=== PATIENT | female | born 1940 | race Caucasian/White ===

== ENCOUNTER 2019-02-09 10:41 | Inpatient (IN) | payer MEDICARE, OTHER ==
[~2019-02-09] VITALS: Ht 154.9 cm; Wt 79.6 kg
[~2019-02-09 10:41] MED LIST: ASPI-650 PO; CALC500T12 PO; DOCU-159 PO; LOSA25TA2 PO; NITR0.4T39 PO
[2019-02-09] MEDS ORDERED: NITROGLYCERIN 2% 1 GM OINT PKT TD STA (11:25)
[2019-02-09] MEDS ORDERED: NICARDipine HCL 30 MG CAPSULE PO ONE (11:30)
[2019-02-09] MEDS: ONDANSETRON 4 MG INJ IV STA ×2 (11:39→11:43)
[2019-02-09] MEDS: morphine 4 MG/ML VIAL IV STA ×2 (11:39→11:43)
[2019-02-09] MEDS ORDERED: ASPI-1044 ORAL (12:29)
[2019-02-09] MEDS ORDERED: METO-319 ORAL (12:29)
[2019-02-09] MEDS ORDERED: ATOR20TA38 PO (12:29)
--- NOTE | 2019-02-09 15:09 | ERD ---
ER Documentation Chief Complaint Chief Complaint chest pain x 3 days, headache, and back pain, " i feel like crying", no si HPI This 78-year-old female who is complaining of multiple complaints. She is complaining of a occipital headache for the past day consistent with prior hypertensive headaches. She also complains that she is having blurry vision in her left eye. She said she lost the vision in her right eye about 3 months ago. She went to her doctor and they did not do any work-up and told her is just the way is going to be. She is concerned that she is going to lose the vision in her left eye now. She says is a bit blurry like when she gets high blood pressure but there is no loss of vision. She also is complaining of headache with substernal chest pressure. She is found to have very elevated blood pressure out in triage. ROS All systems reviewed and are negative except as per history of present illness. Medications Home Meds Reported Medications Metoprolol Succinate* (Toprol XL*) 50 Mg Tab.er.24h, 1 TAB ORAL DAILY 02/09/19 Atorvastatin Calcium* (Atorvastatin Calcium*) 20 Mg Tablet, 20 MG PO QHS, #30 TAB 02/09/19 Aspirin Delayed Release (Aspirin Delayed Release) 81 Mg Tablet.dr, 1 TAB ORAL DAILY 02/09/19 Discontinued Reported Medications Docusate Sodium* (Docusate Sodium*) 100 Mg Capsule, 100 MG PO DAILY 01/12/12 Losartan Potassium* (Cozaar*) 25 Mg Tablet, 25 MG PO DAILY 01/12/12 Nitroglycerin* (Nitrostat*) 0.4 Mg Tab.subl, 0.4 MG PO PRN 01/12/12 Calcium Carbonate* (Oysco-500*) 1 Tab Tablet, 1 TAB PO BID 01/12/12 Aspirin (Aspirin) 81 Mg Tablet, 1 TAB PO DAILY 01/12/12 Allergies Allergies: Coded Allergies: Penicillins (Verified Allergy, Severe, 02/09/19) ibuprofen (Verified Allergy, Intermediate, rash and itching, 02/09/19) PMhx/Soc History of Surgery: Yes (OPEN HEART,) Anesthesia Reaction: No Hx Neurological Disorder: No Hx Respiratory Disorders: No Hx Cardiac Disorders: Yes (HTN) Hx Psychiatric Problems: No Hx Miscellaneous Medical Probl: No Hx Alcohol Use: No Hx Substance Use: No Hx Tobacco Use: No Smoking Status: Never smoker FmHx Family History: No coronary disease Physical Exam Vitals Vital Signs Date Temp Pulse Resp B/P (MAP) Pulse Ox O2 O2 Flow FiO2 Time Delivery Rate 02/09/19 56 20 118/69 98 Room Air 14:14 (85) 02/09/19 97.7 68 18 237/111 97 10:51 (153) Physical Exam Const: Well-developed, well-nourished Head: Atraumatic, normocephalic Eyes: Normal Conjunctiva, PERRLA, EOMI, normal sclera, no nystagmus ENT: Normal External Ears, Nose and Mouth, moist mucus membranes. Neck: Full range of motion. No meningismus, no lymphadenopathy. Resp: Clear to auscultation bilaterally, no wheezing, rhonchi, rales Cardio: Regular rate and rhythm, no murmurs, S1 S2 present Abd: Soft, non tender x 4, non distended. Normal bowel sounds, no guarding or rebound, no pulsitile abdominal masses or bruits Skin: No petechiae or rashes, no ecchymosis , no maculopapular rash Back: No midline or flank tenderness Ext: No cyanosis, or edema, FROM x 4, normal inspection, neurovascularly intact x 4 Neur: Awake and alert, STR 5/5 x 4, sensation intact x 4, no focal findings, cerebellum intact Psych: A bit tearful Result Diagram: 02/09/19 1132 02/09/19 1132 Results 24 hrs Laboratory Tests Test 02/09/19 11:32 White Blood Count 10.5 10^3/ul Red Blood Count 4.89 10^6/ul Hemoglobin 15.1 g/dl Hematocrit 44.4 % Mean Corpuscular Volume 90.8 fl Mean Corpuscular Hemoglobin 30.9 pg Mean Corpuscular Hemoglobin Concent 34.0 g/dl Red Cell Distribution Width 12.7 % Platelet Count 34 10^3/UL Mean Platelet Volume 14.0 fl Immature Granulocytes % 0.400 % Neutrophils % % Segmented Neutrophils % (Manual) 38 % Band Neutrophils % (Manual) 3 % Lymphocytes % % Lymphocytes % (Manual) 45 % Reactive Lymphocytes % (Manual) 7 % Monocytes % % Monocytes % (Manual) 2 % Eosinophils % % Eosinophils % (Manual) 4 % Basophils % % Basophils % (Manual) 1 % Nucleated Red Blood Cells % 0.0 /100WBC Immature Granulocytes # 0.040 10^3/ul Neutrophils # 10^3/ul Neutrophils # (Manual) 4.0 10^3/ul Band Neutrophils # 0.3 10^3/ul Lymphocytes (Manual) 4.7 10^3/ul Lymphocytes # 10^3/ul Reactive Lymphocytes # 0.7 10^3/ul Monocytes # 10^3/ul Monocytes # (Manual) 0.2 10^3/ul Eosinophils # 10^3/ul Basophils # 10^3/ul Basophils # (Manual) 0.1 10^3/ul Nucleated Red Blood Cells # 10^3/ul Platelet Estimate SIG DECREASED Platelet Morphology Comment @See below Polychromasia 3+ Poikilocytosis 1+ Anisocytosis 2+ Microcytosis 2+ Target Cells 1+ Prothrombin Time 13.2 Sec Prothrombin Time Ratio 1.0 INR International Normalized Ratio 0.99 Activated Partial Thromboplast Time 30.4 Sec Sodium Level 144 mmol/L Potassium Level 4.7 mmol/L Chloride Level 106 mmol/L Carbon Dioxide Level 30 mmol/L Anion Gap 8 Blood Urea Nitrogen 15 mg/dl Creatinine 0.83 mg/dl Est Glomerular Filtrat Rate mL/min mL/min Glucose Level 143 mg/dl Calcium Level 9.8 mg/dl Total Bilirubin 0.8 mg/dl Direct Bilirubin 0.00 mg/dl Indirect Bilirubin 0.8 mg/dl Aspartate Amino Transf (AST/SGOT) 36 IU/L Alanine Aminotransferase (ALT/SGPT) 39 IU/L Alkaline Phosphatase 82 IU/L Troponin I < 0.012 ng/ml Total Protein 7.7 g/dl Albumin 4.2 g/dl Globulin 3.50 g/dl Albumin/Globulin Ratio 1.20 Current Medications Medications Dose Sig/Mikal Start Time Status Last (Trade) Ordered Route PRN Stop Time Admin Dose Reason Admin 1 inch ONCE STAT 02/09/19 DC 02/09/19 Nitroglycerin TD 11:25 11:40 02/09/19 11:27 (Nitroglyceri n 2% Oint) Morphine 4 mg ONCE STAT 02/09/19 DC Sulfate IV 11:25 (morphine) 02/09/19 11:27 Ondansetron 4 mg ONCE STAT 02/09/19 DC HCl (Zofran IV 11:25 Inj) 02/09/19 11:27 Nicardipine 30 mg ONCE ONCE 02/09/19 DC 02/09/19 HCl PO 11:30 11:40 (Cardene) 02/09/19 11:31 Procedures/MDM EKG: Rate/Rhythm: Normal sinus rhythm heart rate 86 QRS, ST, QT: NORMAL IL, QRS, QT] Impression: NORMAL EKG Patient: DANY JIMENEZ : 1940 Age: 78 Sex: F MR #: [id number] DOS: 02/09/19 1125 Ordering MD: LUKE LENTZ DO Location: E/R Room/Bed: PROCEDURE: XR Chest. CLINICAL INDICATION: Chest pain. TECHNIQUE: Chest, 1 view. COMPARISON: 05/18/2012. FINDINGS: The cardiomediastinal silhouette demonstrates enlargement of the cardiac silhouette. There are aortic calcifications. Stable postsurgical changes of a CABG. No focal consolidation is seen. No pleural effusion is seen. No definite pneumothorax is seen. No acute osseous abnormality. IMPRESSION: No radiographic evidence of an acute cardiopulmonary process. Mild cardiomegaly. Aortic atherosclerosis. Stable postsurgical changes of a CABG. RPTAT: AAEE Physician Amy Date Time Electronically viewed and signed by Chris Rosa Physician on 02/09/2019 12:05 PH/ CC: LUKE LENTZ DO [id number] DIAGNOSTIC IMAGING REPORT Patient: DANY JIMENEZ : 1940 Age: 78 Sex: F MR #: [id number] DOS: 02/09/19 1125 Ordering MD: LUKE LENTZ DO Location: E/R Room/Bed: PROCEDURE: CT brain without contrast CLINICAL INDICATION: Hypertension, headache TECHNIQUE: CT of the brain without contrast performed on a multidetector CT scanner, with multiplanar reformats. One or more of the following dose reduction techniques were used: Automated exposure control, adjustment in mA and / or kV according to patient size, use of iterative reconstructive technique. CTDIvol = 39 mGy; DLP = 634 mGy-cm. DICOM images are available. COMPARISON: None available FINDINGS: No acute intracranial hemorrhage is identified. No extra-axial fluid collection is seen. There is no mass effect. No midline shift is identified. The ventricles and sulci are unremarkable. There is no hydrocephalus. A chronic lacunar infarct is identified in the left thalamus. There are mild areas of hypodensity in the periventricular - deep white matter which are nonspecific but suggestive of chronic small vessel ischemic changes. Shore-white junctions are preserved. Atherosclerotic calcifications of the intracranial internal carotid arteries are noted. Calvarium and skull base are intact. Partial right mastoid air cell opacification is noted. IMPRESSION: 1. No evidence of acute intracranial pathology. 2. Chronic left thalamic lacunar infarct. 3. Mild chronic small vessel ischemic changes. RPTAT: VV .Helder Murguia MD, MD Date Time Electronically viewed and signed by .Helder Murguia MD, MD on 02/09/2019 12:17 .O/ CC: LUKE LENTZ DO [id number] Patient's blood pressure was 237/111 in triage. The patient is having symptoms of hypertensive endorgan damage with visual change, headache and chest pain. We will need to admit her for chest pain rule out, hypertensive control to ensure there is no further endorgan damage. Blood pressure is much improved after treatment Critical Care Time: 30 minutes Treatments/Evaluations: Close monitoring and treatment of unstable vital signs, cardiorespiratory, and neurologic status, while maintaining tight balance of fluid, respiratory, and cardiac interventions. This time includes discussing the case with the patient and the patient's family. This time does not include all procedures stated elsewhere in this record. This time also includes reviewing old records, labs and radiological studies. This time includes examining and re- examining the patient. Additionally, this time also includes arranging care with admitting and consulting physicians. Departure Diagnosis: Primary Impression: Chest pain Chest pain type: unspecified Qualified Codes: R07.9 - Chest pain, unspecified Additional Impression: Hypertensive urgency Condition: Stable LUKE LENTZ DO February 09, 2019 15:03
[2019-02-09] MEDS ORDERED: HYDROCODONE/APAP (10/325) TAB PO ONE (15:30)
[2019-02-09] MEDS ORDERED: ACETAMINOPHEN 325 MG TAB PO PRN ×2 (16:00→18:00)
[2019-02-09] MEDS ORDERED: ONDANSETRON 4 MG INJ IV PRN (16:00)
--- NOTE | 2019-02-09 16:51 | HP ---
Date/Time of Note Date/Time of Note DATE: 02/09/19 TIME: 16:51 Assessment/Plan VTE Prophylaxis Pharmacological prophylaxis: NA/contraindicated Pharm contraindication: thrombocytopenia Lines/Catheters [facility] Assessment/Plan Hospital Course 78-year-old female with comorbidities including hypertension, dyslipidemia, CAD status post coronary artery bypass grafting, obesity, and thrombocytopenia who came to the emergency room with chief complaint of occipital headache and chest pain, who was found to have evidence of underlying hypertensive emergency and will be admitted to inpatient setting for further treatment and evaluation. 1. Hypertensive urgency. -Etiology unclear. -Lower the patient's blood pressure gradually. -Obtain cardiology consult. 2. Chest pain. -Most probably secondary to underlying hypertensive urgency. -However, will rule out for any ACS, given the patient's given history of CAD. -Obtain cardiology consult. 3. CAD. Status post CABG. -Resume statins. -Hold aspirin because of significant thrombocytopenia. 4. Dyslipidemia. -Resume statins. 5. Thrombocytopenia. -Etiology unclear. -LFTs within normal limits. -Hold antiplatelet therapy. 6. Obesity. -BMI more than 32 kg/m. -Advised weight reduction. Plan: The patient will be admitted to inpatient telemetry floor. The patient will be started on a low-cholesterol diet. The patient will be started on DVT prophylaxis (bilateral SCDs). Activities will be as tolerated. The rest of the patient's management will be based on the clinical course, inputs from consultants, and the results of diagnostic studies. Based on the patient's clinical presentation, she most probably requires at least 1 midnight's stay for further management and evaluation of her clinical presentation. The patient was seen in collaboration with Dr. Villagomez. Result Diagram: 02/09/19 1132 02/09/19 1132 Results 24hrs Laboratory Tests Test 02/09/19 11:32 White Blood Count 10.5 Red Blood Count 4.89 Hemoglobin 15.1 Hematocrit 44.4 Mean Corpuscular Volume 90.8 Mean Corpuscular Hemoglobin 30.9 Mean Corpuscular Hemoglobin Concent 34.0 Red Cell Distribution Width 12.7 Platelet Count 34 L Mean Platelet Volume 14.0 H Immature Granulocytes % 0.400 Neutrophils % Segmented Neutrophils % (Manual) 38 L Band Neutrophils % (Manual) 3 Lymphocytes % Lymphocytes % (Manual) 45 Reactive Lymphocytes % (Manual) 7 H Monocytes % Monocytes % (Manual) 2 Eosinophils % Eosinophils % (Manual) 4 Basophils % Basophils % (Manual) 1 Nucleated Red Blood Cells % 0.0 Immature Granulocytes # 0.040 H Neutrophils # Neutrophils # (Manual) 4.0 Band Neutrophils # 0.3 Lymphocytes (Manual) 4.7 H Lymphocytes # Reactive Lymphocytes # 0.7 H Monocytes # Monocytes # (Manual) 0.2 L Eosinophils # Basophils # Basophils # (Manual) 0.1 H Nucleated Red Blood Cells # Platelet Estimate SIG DECREASED Platelet Morphology Comment @See below Polychromasia 3+ Poikilocytosis 1+ Anisocytosis 2+ Microcytosis 2+ Target Cells 1+ Prothrombin Time 13.2 Prothrombin Time Ratio 1.0 INR International Normalized Ratio 0.99 Activated Partial Thromboplast Time 30.4 Sodium Level 144 Potassium Level 4.7 Chloride Level 106 Carbon Dioxide Level 30 Anion Gap 8 Blood Urea Nitrogen 15 Creatinine 0.83 Est Glomerular Filtrat Rate mL/min Glucose Level 143 Calcium Level 9.8 Total Bilirubin 0.8 Direct Bilirubin 0.00 Indirect Bilirubin 0.8 Aspartate Amino Transf (AST/SGOT) 36 Alanine Aminotransferase (ALT/SGPT) 39 Alkaline Phosphatase 82 Troponin I < 0.012 Total Protein 7.7 Albumin 4.2 Globulin 3.50 H Albumin/Globulin Ratio 1.20 HPI/ROS Admit Date/Time Admit Date/Time Hx of Present Illness This is an 78-year-old female with comorbidities including hypertension, hyperlipidemia, CAD status post coronary artery bypass grafting, and thrombocytopenia who came to the emergency room with chief complaint of chest pain and headache who was found to have evidence of significantly elevated blood pressure (237/111). The patient was also complaining of decreased visual acuity on the left eye. The patient verbalized that she lost her right eye vision completely in the recent past approximately 2 months ago. The patient was complaining of significant occipital headache. The patient denied any dyspnea. She denied any dizziness. She denied any nausea, vomiting, or diaphoresis. In the emergency room, the patient was treated with IV morphine along with a single dose of oral nicardipine and IV analgesics. The patient's a chest x-ray was negative for any acute findings. The patient's brain CT scan was negative for any acute findings. ROS Constitutional: no complaints Eyes: visual change (Decreased visual acuity of the left eye.) ENT: no complaints Respiratory: no complaints Cardiovascular: chest pain Gastrointestinal: no complaints Genitourinary: no complaints Musculoskeletal: no complaints Skin: no complaints Neurologic: headache Endocrine: no complaints Lymphatic: no complaints Psychological: no complaints Immunologic: no complaints PMH/Family/Social Past Medical History Medical History: coronary artery disease, high cholesterol, hypertension, other (Thrombocytopenia. Obesity.) Medications Current Medications Ondansetron HCl (Zofran Inj) 4 mg ER BRIDGE PRN IV NAUSEA/VOMITING; Start 02/09/19 at 16:00; Stop 02/10/19 at 15:59 Acetaminophen (Tylenol Tab) 650 mg ER BRIDGE PRN PO .MILD PAIN 1-3 OR TEMP; Start 02/09/19 at 16:00; Stop 02/10/19 at 15:59 Coded Allergies: Penicillins (Verified Allergy, Severe, 02/09/19) ibuprofen (Verified Allergy, Intermediate, rash and itching, 02/09/19) Past Surgical History Past Surgical Hx: cholecystectomy, coronary bypass surgery Social History Lives at home. Originally from [facility]. Alcohol Use: none Smoking Status: Never smoker Drug Use: none Exam/Review of Systems Vital Signs Vitals Vital Signs Date Temp Pulse Resp B/P (MAP) Pulse Ox O2 O2 Flow FiO2 Time Delivery Rate 02/09/19 56 20 118/69 98 Room Air 14:14 (85) 02/09/19 97.7 10:51 Exam Exam General: Obese 78 year-old female lying in bed in no apparent distress. HEENT: Normocephalic, atraumatic. Eyes: Anicteric sclerae, conjunctivae clear. ENT: Nasal septum midline, oral mucosa moist. Neck supple, no JVD noticed. Respiratory: Bilaterally diminished breath sounds. No use of accessory muscles of respiration. No adventitious breath sounds. Cardiovascular: S1, S2 heard. Regular rate and rhythm. Abdomen: Soft, nontender, and nondistended. Bowel sounds positive in all 4 q uadrants. Genitourinary: Deferred. Extremities: No cyanosis, no clubbing, no edema. Peripheral pulses palpable. Neurologic: The patient is awake, alert, and oriented. Skin: Normal skin turgor. No skin rashes. Additional Comments Brain CT IMPRESSION: 1. No evidence of acute intracranial pathology. 2. Chronic left thalamic lacunar infarct. 3. Mild chronic small vessel ischemic changes. Chest X-Ray IMPRESSION: No radiographic evidence of an acute cardiopulmonary process. Mild cardiomegaly. Aortic atherosclerosis. Stable postsurgical changes of a CABG. KAYLEY DOUGLASS NP February 09, 2019 16:51
[2019-02-09 17:32] VITALS: PULSE 53
[2019-02-09] MEDS ORDERED: NACL 0.9% 3 ML SYG IV SCH (18:00)
[2019-02-09 18:13] VITALS: Ht 154.9 cm; Wt 79.6 kg
[2019-02-09 18:56] VITALS: BP 191/91; PULSE 51; RESP 20
--- NOTE | 2019-02-09 19:24 | CONS ---
Assessment/Plan Assessment/Plan Hospital Course (Demo Recall) 1. Hypertensive urgency 2. Chest pain probably related to above. 3. Coronary artery disease 4. History of prior to bypass graft 5. Dyslipidemia 6. History of CVA based on the head CT 7. Morbid obesity 8. Marked sinus bradycardia Recommendation: I will start the patient on lisinopril as well as hydrochlorothiazide. We will switch the metoprolol to labetalol given her bradycardia Echocardiogram will be checked thyroid function and will be checked Aspirin Statins Monitor on telemetry Lipid panel will be checked Cardiac enzymes will be checked again tomorrow morning. We will consider stress test if patient continues to have chest discomfort after correction of the blood pressure Thank you for his referral. We will continue to follow along with you ACE FERNÁNDEZ MD [facility] Consultation Date/Type/Reason Admit Date/Time Date of Consultation: February 09, 2019 Type of Consult Cardiology Reason for Consultation Hypertensive urgency, chest pain Requesting Provider: KAYLEY DOUGLASS NP Date/Time of Note DATE: 02/09/19 TIME: 19:20 Hx of Present Illness Interventional cardiology consultation note Chief complaint: Headache, neck pain, chest pain Reason for consult: Hypertensive urgency, chest pain History of present illness: Thank you for this referral. History was informed the patient from discussion with staff and physician review of the chart. This is a very pleasant 78-year-old female with history of coronary artery disease status post coronary artery bypass graft, hypertension who presents emergency room with complaint. Patient said that she has been having headache mostly. Also complains of her neck hurting. She complains of back of her head her leg mostly which has been severe. She also said the pain was going down to her chest. She was noted to be severely hypertensive with systolic blood pressure more than 230 on admission. The pain is subsiding now. Allergies: Penicillin and ibuprofen Medications were reviewed as per medical reconciliation sheet Family history: No report of any history of early coronary artery disease Social history: Does not smoke or drink Past medical history: Coronary artery disease status post coronary artery bypass graft apparently in 2006 hypertension dyslipidemia morbid obesity Review of system: Patient denies all others except for above-mentioned Past Medical History Home Meds Reported Medications Metoprolol Succinate* (Toprol XL*) 50 Mg Tab.er.24h, 1 TAB ORAL DAILY 02/09/19 Atorvastatin Calcium* (Atorvastatin Calcium*) 20 Mg Tablet, 20 MG PO QHS, #30 TAB 02/09/19 Aspirin Delayed Release (Aspirin Delayed Release) 81 Mg Tablet., 1 TAB ORAL DAILY 02/09/19 Discontinued Reported Medications Docusate Sodium* (Docusate Sodium*) 100 Mg Capsule, 100 MG PO DAILY 01/12/12 Losartan Potassium* (Cozaar*) 25 Mg Tablet, 25 MG PO DAILY 01/12/12 Nitroglycerin* (Nitrostat*) 0.4 Mg Tab.subl, 0.4 MG PO PRN 01/12/12 Calcium Carbonate* (Oysco-500*) 1 Tab Tablet, 1 TAB PO BID 01/12/12 Aspirin (Aspirin) 81 Mg Tablet, 1 TAB PO DAILY 01/12/12 Medications Current Medications Ondansetron HCl (Zofran Inj) 4 mg ER BRIDGE PRN IV NAUSEA/VOMITING; Start 02/09/19 at 16:00; Stop 02/10/19 at 15:59 Acetaminophen (Tylenol Tab) 650 mg ER BRIDGE PRN PO .MILD PAIN 1-3 OR TEMP; Start 02/09/19 at 16:00; Stop 02/10/19 at 15:59 Atorvastatin Calcium (Lipitor) 20 mg QHS PO ; Start 02/09/19 at 21:00 Metoprolol Succinate (Toprol Xl) 50 mg DAILY PO ; Start 02/10/19 at 09:00 IV Flush (NS 3 ml) 3 ml PER PROTOCOL IV ; Start 02/09/19 at 18:00 Acetaminophen (Tylenol Tab) 650 mg Q6H PRN PO .PAIN 1-3 OR TEMP; Start 02/09/19 at 18:00 Allergies: Coded Allergies: Penicillins (Verified Allergy, Severe, 02/09/19) ibuprofen (Verified Allergy, Intermediate, rash and itching, 02/09/19) Past Surgical History Past Surgical Hx: cholecystectomy, coronary bypass surgery Social History Alcohol Use: none Smoking Status: Never smoker Drug Use: none Exam/Review of Systems Vital Signs Vitals Vital Signs Date Temp Pulse Resp B/P (MAP) Pulse Ox O2 O2 Flow FiO2 Time Delivery Rate 02/09/19 98.0 51 20 191/91 98 18:56 (124) 02/09/19 Room Air 17:04 Exam Exam General: Obese female in no acute distress HEENT: NC/AT. pupils are equal. round. NECK: NO JVD. no stridor. CV: RRR. systolic murmur; no gallop or rubs. PULM: no wheezing or rhonchi. GI: SOFT, NT, ND, no rebound or guarding Extremity: trace B/L LE edema. no clubbing. neuro: awake and alert, OX3. Psych: calm and pleasant rectal: deferred EKG was personally reviewed showed sinus bradycardia. Nonspecific interventricular conduction delay. Poor R wave progression cannot rule out inferior infarct. Nonspecific ST-T wave abnormalities Chest x-ray shows status post coronary artery bypass graft. No acute cardia pulmonary disease Head CT done in the emergency room shows: 1. No evidence of acute intracranial pathology. 2. Chronic left thalamic lacunar infarct. 3. Mild chronic small vessel ischemic change Labs Result Diagram: 02/09/19 1132 02/09/19 1132 Results 24hrs Laboratory Tests Test 02/09/19 11:32 02/09/19 17:50 White Blood Count 10.5 Red Blood Count 4.89 Hemoglobin 15.1 Hematocrit 44.4 Mean Corpuscular Volume 90.8 Mean Corpuscular Hemoglobin 30.9 Mean Corpuscular Hemoglobin Concent 34.0 Red Cell Distribution Width 12.7 Platelet Count 34 L Mean Platelet Volume 14.0 H Immature Granulocytes % 0.400 Neutrophils % Segmented Neutrophils % (Manual) 38 L Band Neutrophils % (Manual) 3 Lymphocytes % Lymphocytes % (Manual) 45 Reactive Lymphocytes % (Manual) 7 H Monocytes % Monocytes % (Manual) 2 Eosinophils % Eosinophils % (Manual) 4 Basophils % Basophils % (Manual) 1 Nucleated Red Blood Cells % 0.0 Immature Granulocytes # 0.040 H Neutrophils # Neutrophils # (Manual) 4.0 Band Neutrophils # 0.3 Lymphocytes (Manual) 4.7 H Lymphocytes # Reactive Lymphocytes # 0.7 H Monocytes # Monocytes # (Manual) 0.2 L Eosinophils # Basophils # Basophils # (Manual) 0.1 H Nucleated Red Blood Cells # Platelet Estimate SIG DECREASED Platelet Morphology Comment @See below Polychromasia 3+ Poikilocytosis 1+ Anisocytosis 2+ Microcytosis 2+ Target Cells 1+ Prothrombin Time 13.2 Prothrombin Time Ratio 1.0 INR International Normalized Ratio 0.99 Activated Partial Thromboplast Time 30.4 Sodium Level 144 Potassium Level 4.7 Chloride Level 106 Carbon Dioxide Level 30 Anion Gap 8 Blood Urea Nitrogen 15 Creatinine 0.83 Est Glomerular Filtrat Rate mL/min Glucose Level 143 Calcium Level 9.8 Total Bilirubin 0.8 Direct Bilirubin 0.00 Indirect Bilirubin 0.8 Aspartate Amino Transf (AST/SGOT) 36 Alanine Aminotransferase (ALT/SGPT) 39 Alkaline Phosphatase 82 Troponin I < 0.012 Total Protein 7.7 Albumin 4.2 Globulin 3.50 H Albumin/Globulin Ratio 1.20 Hemoglobin A1c 6.0 H Medications Medications Current Medications Ondansetron HCl (Zofran Inj) 4 mg ER BRIDGE PRN IV NAUSEA/VOMITING; Start 02/09/19 at 16:00; Stop 02/10/19 at 15:59 Acetaminophen (Tylenol Tab) 650 mg ER BRIDGE PRN PO .MILD PAIN 1-3 OR TEMP; Start 02/09/19 at 16:00; Stop 02/10/19 at 15:59 Atorvastatin Calcium (Lipitor) 20 mg QHS PO ; Start 02/09/19 at 21:00 Metoprolol Succinate (Toprol Xl) 50 mg DAILY PO ; Start 02/10/19 at 09:00 IV Flush (NS 3 ml) 3 ml PER PROTOCOL IV ; Start 02/09/19 at 18:00 Acetaminophen (Tylenol Tab) 650 mg Q6H PRN PO .PAIN 1-3 OR TEMP; Start 02/09/19 at 18:00 ACE FERNÁNDEZ MD February 09, 2019 19:24
[2019-02-09] MEDS: LISINOPRIL 20 MG TAB PO SCH (19:54)
[2019-02-09] MEDS: HYDROCHLOROTHIAZIDE 12.5 MG CAP PO SCH (19:54)
[2019-02-09] MEDS: ASPIRIN (EC) 81 MG TAB PO SCH (19:54)
[2019-02-09 20:00] VITALS: BP 189/85; PULSE 51; PULSE 55; RESP 20
[2019-02-09] MEDS ORDERED: ATORVASTATIN 20 MG TAB PO SCH (21:00)
[2019-02-09] MEDS: LABETALOL 200 MG TAB PO SCH (21:00)
[2019-02-09] MEDS: ONDANSETRON 4 MG INJ IV PRN (22:26)
[2019-02-09] MEDS: DOCUSATE SODIUM 100 MG CAP PO SCH (22:30)
[2019-02-09] MEDS: POLYETHYLENE GLYCOL 17 GM PACKET PO SCH (22:30)
[2019-02-09] MEDS ORDERED: LORAZEPAM 2 MG INJ IV ONE (22:30)
[2019-02-09 22:50] VITALS: BP 178/82; PULSE 63
[2019-02-10] VITALS (12 sets, daily range): BP systolic 119–181; BP diastolic 57–78; PULSE 57–72; RESP 18–20
--- NOTE | 2019-02-10 08:57 | CONS ---
Consult Date/Type/Reason Admit Date/Time February 09, 2019 at 15:32 Initial Consult Date 02/09/19 Type of Consultation: cv Requesting Provider: KAYLEY DOUGLASS NP Date/Time of Note DATE: 02/10/19 TIME: 08:55 Subjective Interventional cardiology follow-up progress note Subjective: Discussed with the staff telemetry was reviewed. Patient remains mostly in sinus bradycardia No syncope or presyncope She complains of mostly of mild pain at this point. Headache is better chest pain is better with a slight chest pain is still Objective: General: Obese female in no acute distress HEENT: NC/AT. pupils are equal. round. NECK: NO JVD. no stridor. CV: Bradycardic. systolic murmur; no gallop or rubs. PULM: no wheezing or rhonchi. GI: SOFT, NT, ND, no rebound or guarding Extremity: trace B/L LE edema. no clubbing. neuro: awake and alert, OX3. Psych: calm and pleasant rectal: deferred EKG was personally reviewed showed sinus bradycardia. Nonspecific interventricular conduction delay. Poor R wave progression cannot rule out inferior infarct. Nonspecific ST-T wave abnormalities Chest x-ray shows status post coronary artery bypass graft. No acute cardia pulmonary disease Head CT done in the emergency room shows: 1. No evidence of acute intracranial pathology. 2. Chronic left thalamic lacunar infarct. 3. Mild chronic small vessel ischemic change Objective Vitals Vital Signs Date Temp Pulse Resp B/P (MAP) Pulse Ox O2 O2 Flow FiO2 Time Delivery Rate 02/10/19 98.0 57 18 119/57 96 07:13 (77) 02/10/19 Nasal 2.0 02:00 Cannula Intake and Output 02/09/19 02/09/19 02/10/19 1515:00 23:00 07:00 IntakeIntake Total 500 ml OutputOutput Total 900 ml BalanceBalance -400 ml Results/Medications Result Diagram: 02/10/1960402/10/19604 Results 24 hrs Laboratory Tests Test 02/09/19 11:32 02/09/19 17:50 02/10/19 06:05 White Blood Count 10.5 9.0 Red Blood Count 4.89 4.49 Hemoglobin 15.1 13.7 Hematocrit 44.4 40.4 Mean Corpuscular Volume 90.8 90.0 Mean Corpuscular Hemoglobin 30.9 30.5 Mean Corpuscular 34.0 33.9 Hemoglobin Concent Red Cell Distribution Width 12.7 13.1 Platelet Count 34 L 36 L Mean Platelet Volume 14.0 H 13.9 H Immature Granulocytes % 0.400 0.200 Neutrophils % 61.5 Segmented Neutrophils % (Manual) 38 L Band Neutrophils % (Manual) 3 Lymphocytes % 28.1 Lymphocytes % (Manual) 45 Reactive Lymphocytes % (Manual) 7 H Monocytes % 6.8 Monocytes % (Manual) 2 Eosinophils % 2.6 Eosinophils % (Manual) 4 Basophils % 0.8 Basophils % (Manual) 1 Nucleated Red Blood Cells % 0.0 0.0 Immature Granulocytes # 0.040 H 0.020 Neutrophils # 5.6 Neutrophils # (Manual) 4.0 Band Neutrophils # 0.3 Lymphocytes (Manual) 4.7 H Lymphocytes # 2.5 Reactive Lymphocytes # 0.7 H Monocytes # 0.6 Monocytes # (Manual) 0.2 L Eosinophils # 0.2 Basophils # 0.1 Basophils # (Manual) 0.1 H Nucleated Red Blood Cells # 0.0 Platelet Estimate SIG DECREASED Platelet Morphology Comment @See below Polychromasia 3+ Poikilocytosis 1+ Anisocytosis 2+ Microcytosis 2+ Target Cells 1+ Prothrombin Time 13.2 Prothrombin Time Ratio 1.0 INR International 0.99 Normalized Ratio Activated Partial Thromboplast 30.4 Time Sodium Level 144 144 Potassium Level 4.7 4.5 Chloride Level 106 109 Carbon Dioxide Level 30 25 Anion Gap 8 10 Blood Urea Nitrogen 15 22 H Creatinine 0.83 1.00 Est Glomerular Filtrat Rate mL/min Glucose Level 143 122 Calcium Level 9.8 9.9 Total Bilirubin 0.8 0.8 Direct Bilirubin 0.00 0.00 Indirect Bilirubin 0.8 0.8 Aspartate Amino Transf (AST/SGOT) 36 40 Alanine 39 37 Aminotransferase (ALT/SGPT) Alkaline Phosphatase 82 59 Troponin I < 0.012 < 0.012 < 0.012 Total Protein 7.7 6.6 # Albumin 4.2 3.8 Globulin 3.50 H 2.80 Albumin/Globulin Ratio 1.20 1.35 Hemoglobin A1c 6.0 H Creatine Kinase 45 38 Creatine Kinase Index 1.3 1.4 Creatinine Kinase MB (Mass) 0.60 0.53 B-Type Natriuretic Peptide 885 H Thyroid Stimulating Hormone (TSH) 0.668 Free Thyroxine 1.15 1.03 Phosphorus Level 5.0 H Magnesium Level 2.0 Triglycerides Level 153 H Cholesterol Level 157 LDL Cholesterol, Calculated 87 HDL Cholesterol 39 Cholesterol/HDL Ratio 4.0 Home Meds Reported Medications Metoprolol Succinate* (Toprol XL*) 50 Mg Tab.er.24h, 1 TAB ORAL DAILY 02/09/19 Atorvastatin Calcium* (Atorvastatin Calcium*) 20 Mg Tablet, 20 MG PO QHS, #30 TAB 02/09/19 Aspirin Delayed Release (Aspirin Delayed Release) 81 Mg Tablet.dr, 1 TAB ORAL DAILY 02/09/19 Discontinued Reported Medications Docusate Sodium* (Docusate Sodium*) 100 Mg Capsule, 100 MG PO DAILY 01/12/12 Losartan Potassium* (Cozaar*) 25 Mg Tablet, 25 MG PO DAILY 01/12/12 Nitroglycerin* (Nitrostat*) 0.4 Mg Tab.subl, 0.4 MG PO PRN 01/12/12 Calcium Carbonate* (Oysco-500*) 1 Tab Tablet, 1 TAB PO BID 01/12/12 Aspirin (Aspirin) 81 Mg Tablet, 1 TAB PO DAILY 01/12/12 Medications Current Medications Ondansetron HCl (Zofran Inj) 4 mg ER BRIDGE PRN IV NAUSEA/VOMITING; Start 02/09/19 at 16:00; Stop 02/10/19 at 15:59 Acetaminophen (Tylenol Tab) 650 mg ER BRIDGE PRN PO .MILD PAIN 1-3 OR TEMP; Start 02/09/19 at 16:00; Stop 02/10/19 at 15:59 Atorvastatin Calcium (Lipitor) 20 mg QHS PO Last administered on 02/09/19at 21:41; Admin Dose 20 MG; Start 02/09/19 at 21:00 IV Flush (NS 3 ml) 3 ml PER PROTOCOL IV ; Start 02/09/19 at 18:00 Acetaminophen (Tylenol Tab) 650 mg Q6H PRN PO .PAIN 1-3 OR TEMP; Start 02/09/19 at 18:00 Aspirin (Halfprin) 81 mg DAILY PO Last administered on 02/09/19at 19:54; Admin Dose 81 MG; Start 02/09/19 at 19:30 Labetalol HCl (Normodyne) 200 mg TID PO ; Start 02/09/19 at 21:00 Lisinopril (Zestril) 20 mg DAILY PO Last administered on 02/09/19 19:54; Admin Dose 20 MG; Start 02/09/19 at 19:30 Hydrochlorothiazide (Hydrochlorothiazide) 12.5 mg DAILY PO Last administered on 02/09/19 19:54; Admin Dose 12.5 MG; Start 02/09/19 at 19:30 Clonidine (Catapres) 0.1 mg Q4H PRN GTB sbp > 180 Last administered on 02/09/19 21:41; Admin Dose 0.1 MG; Start 02/09/19 at 19:30 Ondansetron HCl (Zofran Inj) 4 mg Q4H PRN IV NAUSEA AND/OR VOMITING Last administered on 02/09/19 22:26; Admin Dose 4 MG; Start 02/09/19 at 22:30 Docusate Sodium (Colace) 100 mg BID PO ; Start 02/09/19 at 22:30 Polyethylene Glycol (Miralax) 17 gm DAILY PO ; Start 02/09/19 at 22:30 Assessment/Plan Hospital Course (Demo Recall) 1. Hypertensive urgency 2. Chest pain probably related to above. 3. Coronary artery disease 4. History of prior coronary artery bypass graft 5. Dyslipidemia 6. History of CVA based on the head CT 7. Morbid obesity 8. Marked sinus bradycardia Recommendation: Tinea patient on lisinopril as well as hydrochlorothiazide. Continue with labetalol start of metoprolol given her bradycardia Echocardiogram will be checked thyroid function tests were checked which was within normal limits Aspirin Increase Lipitor to keep the LDL goal less than 70 Monitor on telemetry We will order a CT coronary angiogram to evaluate the coronary anatomy Thank you for his referral. We will continue to follow along with you ACE FERNÁNDEZ MD [facility] ACE FERNÁNDEZ MD February 10, 2019 08:57
[2019-02-10] MEDS ORDERED: METOPROLOL (XL) 50 MG TAB PO SCH (09:00)
[2019-02-10] MEDS: POLYETHYLENE GLYCOL 17 GM PACKET PO SCH (09:25)
[2019-02-10] MEDS: ASPIRIN (EC) 81 MG TAB PO SCH (09:25)
[2019-02-10] MEDS: DOCUSATE SODIUM 100 MG CAP PO SCH ×2 (09:25→21:31)
[2019-02-10] MEDS: HYDROCHLOROTHIAZIDE 12.5 MG CAP PO SCH (09:30)
[2019-02-10] MEDS: LISINOPRIL 20 MG TAB PO SCH (09:31)
[2019-02-10] MEDS: LABETALOL 200 MG TAB PO SCH ×3 (09:31→21:32)
[2019-02-10] MEDS ORDERED: SOD CHLORIDE 0.9% 100 ML ONE (10:12)
[2019-02-10] MEDS ORDERED: IOHEXOL 100 ML ONE (10:12)
[2019-02-10] MEDS ORDERED: NITROGLYCERIN AEROSOL (4.9 GM) ONE ×2 (10:26→10:58)
[2019-02-10] MEDS ORDERED: NITROGLYCERIN AEROSOL (4.9 GM) SL ONE (11:30)
--- NOTE | 2019-02-10 17:23 | PN ---
Date/Time of Note Date/Time of Note DATE: 02/10/19 TIME: 17:23 Assessment/Plan VTE Prophylaxis Risk score (from Ns)>0 risk: 5 SCD applied (from [facility]): Yes Pharmacological prophylaxis: NA/contraindicated Pharm contraindication: thrombocytopenia Lines/Catheters IV [facility]from [facility] Saline Lock Urinary Cath still in place: No Assessment/Plan Hospital Course SUBJECTIVE: Blood pressure better controlled. Denies any headache at this time. OBJECTIVE: Physical Exam General: Obese 78 year-old female lying in bed in no apparent distress. HEENT: Normocephalic, atraumatic. Eyes: Anicteric sclerae, conjunctivae clear. ENT: Nasal septum midline, oral mucosa moist. Neck supple, no JVD noticed. Respiratory: Bilaterally diminished breath sounds. No use of accessory muscles of respiration. No adventitious breath sounds. Cardiovascular: S1, S2 heard. Regular rate and rhythm. Abdomen: Soft, nontender, and nondistended. Bowel sounds positive in all 4 quadrants. Genitourinary: Deferred. Extremities: No cyanosis, no clubbing, no edema. Peripheral pulses palpable. Neurologic: The patient is awake, alert, and oriented. Skin: Normal skin turgor. No skin rashes. Labs & Vitals per chart ASSESSMENT & PLAN 78-year-old female with comorbidities including hypertension, dyslipidemia, CAD status post coronary artery bypass grafting, obesity, and thrombocytopenia who came to the emergency room with chief complaint of occipital headache and chest pain, who was found to have evidence of underlying hypertensive emergency and was admitted to inpatient setting for further treatment and evaluation. 1. Hypertensive urgency. -Etiology unclear. -Lower the patient's blood pressure gradually. -Cardiology following. 2. Chest pain. -Cardiac CT showing clips extending towards OM territory suggesting an occluded graft. -Cardiology is aware of the results. 3. CAD. Status post CABG. -Continue statins. -Hold aspirin because of significant thrombocytopenia. 4. Dyslipidemia. -Resume statins. 5. Thrombocytopenia. -Etiology unclear. -LFTs within normal limits. -Hold antiplatelet therapy. 6. Obesity. -BMI more than 32 kg/m. -Advised weight reduction. -Hemoglobin A1c of 6.0, indicating prediabetes. 7. Fluids, electrolytes, and nutrition. -Low-cholesterol diet. 8. DVT prophylaxis. -Bilateral SCDs. -Chemical DVT prophylaxis contraindicated because of underlying thrombocytopenia. 9. Plan. -Continue blood pressure control. -Await further cardiology recommendations/interventions. The patient was seen in collaboration with Dr. Villagomez. Result Diagram: 02/10/1960402/10/19604 Results 24hrs Laboratory Tests Test 02/09/19 17:50 02/10/19 06:05 Hemoglobin A1c 6.0 H Creatine Kinase 45 38 Creatine Kinase Index 1.3 1.4 Creatinine Kinase MB (Mass) 0.60 0.53 Troponin I < 0.012 < 0.012 B-Type Natriuretic Peptide 885 H Thyroid Stimulating Hormone (TSH) 0.668 Free Thyroxine 1.15 1.03 White Blood Count 9.0 Red Blood Count 4.49 Hemoglobin 13.7 Hematocrit 40.4 Mean Corpuscular Volume 90.0 Mean Corpuscular Hemoglobin 30.5 Mean Corpuscular Hemoglobin Concent 33.9 Red Cell Distribution Width 13.1 Platelet Count 36 L Mean Platelet Volume 13.9 H Immature Granulocytes % 0.200 Neutrophils % 61.5 Lymphocytes % 28.1 Monocytes % 6.8 Eosinophils % 2.6 Basophils % 0.8 Nucleated Red Blood Cells % 0.0 Immature Granulocytes # 0.020 Neutrophils # 5.6 Lymphocytes # 2.5 Monocytes # 0.6 Eosinophils # 0.2 Basophils # 0.1 Nucleated Red Blood Cells # 0.0 Sodium Level 144 Potassium Level 4.5 Chloride Level 109 Carbon Dioxide Level 25 Anion Gap 10 Blood Urea Nitrogen 22 H Creatinine 1.00 Est Glomerular Filtrat Rate mL/min Glucose Level 122 Calcium Level 9.9 Phosphorus Level 5.0 H Magnesium Level 2.0 Total Bilirubin 0.8 Direct Bilirubin 0.00 Indirect Bilirubin 0.8 Aspartate Amino Transf (AST/SGOT) 40 Alanine Aminotransferase (ALT/SGPT) 37 Alkaline Phosphatase 59 Total Protein 6.6 # Albumin 3.8 Globulin 2.80 Albumin/Globulin Ratio 1.35 Triglycerides Level 153 H Cholesterol Level 157 LDL Cholesterol, Calculated 87 HDL Cholesterol 39 Cholesterol/HDL Ratio 4.0 Exam/Review of Systems Exam Vitals Vital Signs Date Temp Pulse Resp B/P (MAP) Pulse Ox O2 O2 Flow FiO2 Time Delivery Rate 02/10/19 98.0 67 18 137/73 98 16:49 (94) 02/10/19 Nasal 2.0 08:00 Cannula Results Results 24hrs Laboratory Tests Test 02/09/19 17:50 02/10/19 06:05 Hemoglobin A1c 6.0 H Creatine Kinase 45 38 Creatine Kinase Index 1.3 1.4 Creatinine Kinase MB (Mass) 0.60 0.53 Troponin I < 0.012 < 0.012 B-Type Natriuretic Peptide 885 H Thyroid Stimulating Hormone (TSH) 0.668 Free Thyroxine 1.15 1.03 White Blood Count 9.0 Red Blood Count 4.49 Hemoglobin 13.7 Hematocrit 40.4 Mean Corpuscular Volume 90.0 Mean Corpuscular Hemoglobin 30.5 Mean Corpuscular Hemoglobin Concent 33.9 Red Cell Distribution Width 13.1 Platelet Count 36 L Mean Platelet Volume 13.9 H Immature Granulocytes % 0.200 Neutrophils % 61.5 Lymphocytes % 28.1 Monocytes % 6.8 Eosinophils % 2.6 Basophils % 0.8 Nucleated Red Blood Cells % 0.0 Immature Granulocytes # 0.020 Neutrophils # 5.6 Lymphocytes # 2.5 Monocytes # 0.6 Eosinophils # 0.2 Basophils # 0.1 Nucleated Red Blood Cells # 0.0 Sodium Level 144 Potassium Level 4.5 Chloride Level 109 Carbon Dioxide Level 25 Anion Gap 10 Blood Urea Nitrogen 22 H Creatinine 1.00 Est Glomerular Filtrat Rate mL/min Glucose Level 122 Calcium Level 9.9 Phosphorus Level 5.0 H Magnesium Level 2.0 Total Bilirubin 0.8 Direct Bilirubin 0.00 Indirect Bilirubin 0.8 Aspartate Amino Transf (AST/SGOT) 40 Alanine Aminotransferase (ALT/SGPT) 37 Alkaline Phosphatase 59 Total Protein 6.6 # Albumin 3.8 Globulin 2.80 Albumin/Globulin Ratio 1.35 Triglycerides Level 153 H Cholesterol Level 157 LDL Cholesterol, Calculated 87 HDL Cholesterol 39 Cholesterol/HDL Ratio 4.0 Medications Medication Current Medications IV Flush (NS 3 ml) 3 ml PER PROTOCOL IV ; Start 02/09/19 at 18:00 Acetaminophen (Tylenol Tab) 650 mg Q6H PRN PO .PAIN 1-3 OR TEMP; Start 02/09/19 at 18:00 Aspirin (Halfprin) 81 mg DAILY PO Last administered on 02/10/19at 09:25; Admin Dose 81 MG; Start 02/09/19 at 19:30 Labetalol HCl (Normodyne) 200 mg TID PO Last administered on 02/10/19at 13:17; Admin Dose 200 MG; Start 02/09/19 at 21:00 Lisinopril (Zestril) 20 mg DAILY PO Last administered on 02/10/19 09:31; Admin Dose 20 MG; Start 02/09/19 at 19:30 Hydrochlorothiazide (Hydrochlorothiazide) 12.5 mg DAILY PO Last administered on 02/10/19 09:30; Admin Dose 12.5 MG; Start 02/09/19 at 19:30 Clonidine (Catapres) 0.1 mg Q4H PRN GTB sbp > 180 Last administered on 02/09/19 21:41; Admin Dose 0.1 MG; Start 02/09/19 at 19:30 Ondansetron HCl (Zofran Inj) 4 mg Q4H PRN IV NAUSEA AND/OR VOMITING Last administered on 02/09/19 22:26; Admin Dose 4 MG; Start 02/09/19 at 22:30 Docusate Sodium (Colace) 100 mg BID PO Last administered on 02/10/19 09:25; Admin Dose 100 MG; Start 02/09/19 at 22:30 Polyethylene Glycol (Miralax) 17 gm DAILY PO Last administered on 02/10/19 09:25; Admin Dose 17 GM; Start 02/09/19 at 22:30 Atorvastatin Calcium (Lipitor) 40 mg QHS PO ; Start 02/10/19 at 21:00 KAYLEY DOUGLASS NP February 10, 2019 17:23
[2019-02-10] MEDS: ATORVASTATIN 40 MG TAB PO SCH (21:31)
[2019-02-11] VITALS (11 sets, daily range): BP systolic 120–142; BP diastolic 56–65; PULSE 60–72; RESP 16–20
--- NOTE | 2019-02-11 09:14 | RADRPT ---
Echocardiogram Report Patient Name: DANY JIMENEZPatient ID: [id number] : 1940 (78y 5m)Study Date: 02/10/2019 4:26:49 PM Gender: FAccession #: [id number] Tech: Boone Dumont LAUREANO Location: 520 Ref.Physician: KAYLEY DOUGLASS Height(Cm): BSA: Weight(Kg): Quality: AdequateOrder Physician: KAYLEY DOUGLASS Account #: Procedures: Echocardiographic Report: Transthoracic echocardiogram with complete 2D, M-Mode, and doppler examination. Indications: Chest Pain. Measurements: 2D/M Mode Doppler Measurement Value Normal Range Measurement Value Normal Range LVIDd 2D 3.4 [ 3.8 - 5.2 ] cm AV Peak Braeden 1.4 [ 100.0 - 170.0 ] cm/sec LVIDs 2D 3.1 [ 2.2 - 3.5 ] cm AV Peak PG 7.0 [ 2.0 - 9.0 ] mmHg LVPWd 2D 0.9 [ 0.6 - 0.9 ] cm LVOT Peak Braeden 0.8 [ 70.0 - 110.0 ] cm/sec IVSd 2D 1.1 [ 0.6 - 0.9 ] cm LVOT Peak PG 3.0 [ 2.0 - 6.0 ] mmHg IVS/LVPW 2D 1.3 ratio MV E Peak Braeden 0.7 [ 60.0 - 130.0 ] cm/sec AoR Diam 2D 2.7 [ 2.3 - 3.1 ] cm MV A Peak Braeden 0.6 [ 100.0 - 120.0 ] cm/sec LA/Ao 2D 1 ratio MV E/A 1.3 [ 0.8 - 1.5 ] ratio LA Dimen 2D 3.2 [ 2.7 - 3.8 ] cm MV Decel Time 229 [ 104 - 258 ] msec Lat E` Braeden 0.0 [ 10.0 - 15.0 ] cm/sec MV E/A 1.3 [ 0.8 - 1.5 ] ratio TR Peak Braeden 2.0 [ 100.0 - 280.0 ] cm/sec TR Peak PG 17.0 mmHg RVSP 27.0 [ 10.0 - 36.0 ] mmHg RA Pressure 10.0 mmHg Findings: Left Ventricle: Lower limits of normal systolic function. Normal left ventricular cavity size. Mild concentric left ventricular hypertrophy. Ejection fraction is visually estimated at 50 %. Tissue Doppler/Mitral Doppler indices are consistent with pseudonormalization with mildly elevated left atrial pressure (Stage II diastolic dysfunction). Right Ventricle: Normal right ventricular size. Normal right ventricular systolic function. Left Atrium: The left atrium is normal in size. Right Atrium: The right atrium is normal in size. Mitral Valve: Normal appearance and function of the mitral valve with trace physiologic regurgitation. Aortic Valve: No significant aortic stenosis or insufficiency. Aortic cusps appear mildly calcified. Tricuspid Valve: Normal appearance of the tricuspid valve. Estimated peak PA systolic pressure 27 mmHg. There is trace tricuspid regurgitation. Pulmonic Valve: Pulmonic valve not well visualized. Pericardium: Normal pericardium with no significant pericardial effusion. Aorta: Normal aortic root. IVC: Normal size and normal respiratory collapse consistent with normal right atrial pressure. Conclusions: Lower limits of normal systolic function. Normal left ventricular cavity size. Mild concentric left ventricular hypertrophy. Ejection fraction is visually estimated at 50 %. Tissue Doppler/Mitral Doppler indices are consistent with pseudonormalization with mildly elevated left atrial pressure (Stage II diastolic dysfunction). No significant aortic stenosis or insufficiency. Aortic cusps appear mildly calcified. Normal appearance of the tricuspid valve. Estimated peak PA systolic pressure 27 mmHg. There is trace tricuspid regurgitation. Normal appearance and function of the mitral valve with trace physiologic regurgitation. Electronically Signed By: Kush Lares 2019-02-11 09:13:21 PDT
[2019-02-11] MEDS: DOCUSATE SODIUM 100 MG CAP PO SCH ×2 (09:17→20:51)
[2019-02-11] MEDS: HYDROCHLOROTHIAZIDE 12.5 MG CAP PO SCH (09:18)
[2019-02-11] MEDS: LISINOPRIL 20 MG TAB PO SCH (09:18)
[2019-02-11] MEDS: LABETALOL 200 MG TAB PO SCH ×3 (09:18→20:51)
[2019-02-11] MEDS: ASPIRIN (EC) 81 MG TAB PO SCH (09:19)
[2019-02-11] MEDS: POLYETHYLENE GLYCOL 17 GM PACKET PO SCH (09:19)
--- NOTE | 2019-02-11 09:39 | CONS ---
Consult Date/Type/Reason Admit Date/Time February 09, 2019 at 15:32 Initial Consult Date 02/09/19 Type of Consultation: cv Requesting Provider: KAYLEY DOUGLASS NP Date/Time of Note DATE: 02/11/19 TIME: 09:37 Subjective Interventional cardiology follow-up progress note Subjective: Discussed with the staff telemetry was reviewed. Patient remains mostly in sinus bradycardia/ nsr No syncope or presyncope She complains of mild chest pain c/o chronic eye poor vision and WINN Objective: General: Obese female in no acute distress HEENT: NC/AT. pupils are equal. round. NECK: NO JVD. no stridor. CV: Bradycardic. systolic murmur; no gallop or rubs. PULM: no wheezing or rhonchi. GI: SOFT, NT, ND, no rebound or guarding Extremity: trace B/L LE edema. no clubbing. neuro: awake and alert, OX3. Psych: calm and pleasant rectal: deferred EKG was personally reviewed showed sinus bradycardia. Nonspecific interventricular conduction delay. Poor R wave progression cannot rule out inferior infarct. Nonspecific ST-T wave abnormalities Chest x-ray shows status post coronary artery bypass graft. No acute cardia pulmonary disease Head CT done in the emergency room shows: 1. No evidence of acute intracranial pathology. 2. Chronic left thalamic lacunar infarct. 3. Mild chronic small vessel ischemic change Objective Vitals Vital Signs Date Temp Pulse Resp B/P (MAP) Pulse Ox O2 O2 Flow FiO2 Time Delivery Rate 02/11/19 64 08:19 02/11/19 98.3 16 126/58 96 07:22 (80) 02/10/19 Nasal 2.0 20:00 Cannula Intake and Output 02/10/19 02/10/19 02/11/19 1515:00 23:00 07:00 IntakeIntake Total 750 ml 340 ml OutputOutput Total 2 ml 3 ml BalanceBalance 748 ml 337 ml Results/Medications Result Diagram: 02/11/19 0635 02/11/19 0635 Results 24 hrs Laboratory Tests Test 02/10/19 23:19 02/11/19 06:35 Sodium Level 137 140 Potassium Level 4.0 4.6 Chloride Level 100 103 Carbon Dioxide Level 29 29 Anion Gap 8 8 Blood Urea Nitrogen 36 #H 36 H Creatinine 1.44 H 1.27 H Est Glomerular Filtrat Rate mL/min Glucose Level 136 112 Calcium Level 9.5 9.4 Magnesium Level 2.0 2.1 White Blood Count 9.7 Red Blood Count 4.36 Hemoglobin 13.4 Hematocrit 40.6 Mean Corpuscular Volume 93.1 Mean Corpuscular Hemoglobin 30.7 Mean Corpuscular Hemoglobin Concent 33.0 Red Cell Distribution Width 13.1 Platelet Count 44 #L Mean Platelet Volume 14.0 H Immature Granulocytes % 0.200 Neutrophils % 55.3 Lymphocytes % 34.5 Monocytes % 6.2 Eosinophils % 3.1 Basophils % 0.7 Nucleated Red Blood Cells % 0.0 Immature Granulocytes # 0.020 Neutrophils # 5.4 Lymphocytes # 3.4 H Monocytes # 0.6 Eosinophils # 0.3 Basophils # 0.1 Nucleated Red Blood Cells # 0.0 Phosphorus Level 5.5 H Total Bilirubin 0.8 Direct Bilirubin 0.00 Indirect Bilirubin 0.8 Aspartate Amino Transf (AST/SGOT) 33 Alanine Aminotransferase (ALT/SGPT) 30 Alkaline Phosphatase 64 Total Protein 7.1 Albumin 3.7 Globulin 3.40 H Albumin/Globulin Ratio 1.08 Home Meds Reported Medications Metoprolol Succinate* (Toprol XL*) 50 Mg Tab.er.24h, 1 TAB ORAL DAILY 02/09/19 Atorvastatin Calcium* (Atorvastatin Calcium*) 20 Mg Tablet, 20 MG PO QHS, #30 TAB 02/09/19 Aspirin Delayed Release (Aspirin Delayed Release) 81 Mg Tablet.dr, 1 TAB ORAL DAILY 02/09/19 Discontinued Reported Medications Docusate Sodium* (Docusate Sodium*) 100 Mg Capsule, 100 MG PO DAILY 01/12/12 Losartan Potassium* (Cozaar*) 25 Mg Tablet, 25 MG PO DAILY 01/12/12 Nitroglycerin* (Nitrostat*) 0.4 Mg Tab.subl, 0.4 MG PO PRN 01/12/12 Calcium Carbonate* (Oysco-500*) 1 Tab Tablet, 1 TAB PO BID 01/12/12 Aspirin (Aspirin) 81 Mg Tablet, 1 TAB PO DAILY 01/12/12 Medications Current Medications IV Flush (NS 3 ml) 3 ml PER PROTOCOL IV ; Start 02/09/19 at 18:00 Acetaminophen (Tylenol Tab) 650 mg Q6H PRN PO .PAIN 1-3 OR TEMP; Start 02/09/19 at 18:00 Aspirin (Halfprin) 81 mg DAILY PO Last administered on 02/11/19 09:19; Admin Dose 81 MG; Start 02/09/19 at 19:30 Labetalol HCl (Normodyne) 200 mg TID PO Last administered on 02/11/19 09:18; Admin Dose 200 MG; Start 02/09/19 at 21:00 Lisinopril (Zestril) 20 mg DAILY PO Last administered on 02/11/19 09:18; Admin Dose 20 MG; Start 02/09/19 at 19:30 Hydrochlorothiazide (Hydrochlorothiazide) 12.5 mg DAILY PO Last administered on 02/11/19 09:18; Admin Dose 12.5 MG; Start 02/09/19 at 19:30 Clonidine (Catapres) 0.1 mg Q4H PRN GTB sbp > 180 Last administered on 02/09/19 21:41; Admin Dose 0.1 MG; Start 02/09/19 at 19:30 Ondansetron HCl (Zofran Inj) 4 mg Q4H PRN IV NAUSEA AND/OR VOMITING Last administered on 02/09/19 22:26; Admin Dose 4 MG; Start 02/09/19 at 22:30 Docusate Sodium (Colace) 100 mg BID PO Last administered on 02/11/19 09:17; Admin Dose 100 MG; Start 02/09/19 at 22:30 Polyethylene Glycol (Miralax) 17 gm DAILY PO Last administered on 02/11/19 09:19; Admin Dose 17 GM; Start 02/09/19 at 22:30 Atorvastatin Calcium (Lipitor) 40 mg QHS PO Last administered on 02/10/19 21:31; Admin Dose 40 MG; Start 02/10/19 at 21:00 Assessment/Plan Hospital Course (Demo Recall) 1. Hypertensive urgency 2. Chest pain probably related to above. 3. Coronary artery disease 4. History of prior coronary artery bypass graft 5. Dyslipidemia 6. History of CVA based on the head CT 7. Morbid obesity 8. Marked sinus bradycardia Recommendation: CONT patient on lisinopril as well as hydrochlorothiazide. Continue with labetalol start of metoprolol given her bradycardia Echocardiogram shows EF 50% thyroid function tests were checked which was within normal limits CONT Aspirin Increase Lipitor to keep the LDL goal less than [address] ERICK ANGIO RESULTS REVIEWED which shows SVG graft is closed. plan for [facility] erick PCI. 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 We will continue to follow along with you ACE FERNÁNDEZ MD [facility] ACE FERNÁNDEZ MD February 11, 2019 09:39
[2019-02-11] MEDS ORDERED: CLOPIDOGREL 75 MG TAB PO ONE ×2 (10:00→23:00)
--- NOTE | 2019-02-11 12:20 | PN ---
Date/Time of Note Date/Time of Note DATE: 02/11/19 TIME: 12:17 Assessment/Plan VTE Prophylaxis Risk score (from Ns)>0 risk: 4 SCD applied (from [facility]): Yes Pharmacological prophylaxis: NA/contraindicated Pharm contraindication: thrombocytopenia Lines/Catheters IV [facility]ter Type [facility]from [facility] Saline Lock Urinary Cath still in place: No Assessment/Plan Hospital Course SUBJECTIVE: Blood pressure better controlled. Denies any headache at this time. OBJECTIVE: Physical Exam General: Obese 78 year-old female lying in bed in no apparent distress. HEENT: Normocephalic, atraumatic. Eyes: Anicteric sclerae, conjunctivae clear. ENT: Nasal septum midline, oral mucosa moist. Neck supple, no JVD noticed. Respiratory: Bilaterally diminished breath sounds. No use of accessory muscles of respiration. No adventitious breath sounds. Cardiovascular: S1, S2 heard. Regular rate and rhythm. Abdomen: Soft, nontender, and nondistended. Bowel sounds positive in all 4 quadrants. Genitourinary: Deferred. Extremities: No cyanosis, no clubbing, no edema. Peripheral pulses palpable. Neurologic: The patient is awake, alert, and oriented. Skin: Normal skin turgor. No skin rashes. Labs & Vitals per chart ASSESSMENT & PLAN 78-year-old female with comorbidities including hypertension, dyslipidemia, CAD status post coronary artery bypass grafting, obesity, and thrombocytopenia who came to the emergency room with chief complaint of occipital headache and chest pain, who was found to have evidence of underlying hypertensive emergency and was admitted to inpatient setting for further treatment and evaluation. 1. Hypertensive urgency. -Etiology unclear. -Lower the patient's blood pressure gradually. -Cardiology following. 2. Chest pain. -Cardiac CT showing clips extending towards OM territory suggesting an occluded graft. -Cardiology is aware of the results. 3. CAD. Status post CABG. -Continue statins. -Hold aspirin because of significant thrombocytopenia. 4. Dyslipidemia. -Resume statins. 5. ONEIDA. -Most probably contrast induced. -Avoid nephrotoxic medications. 6. Thrombocytopenia. -Etiology unclear. -LFTs within normal limits. -Hold antiplatelet therapy. 7. Obesity. -BMI more than 32 kg/m. -Advised weight reduction. -Hemoglobin A1c of 6.0, indicating prediabetes. 8. Fluids, electrolytes, and nutrition. -Low-cholesterol diet. 9. DVT prophylaxis. -Bilateral SCDs. -Chemical DVT prophylaxis contraindicated because of underlying thrombocytopenia. 10. Plan. -Continue blood pressure control. -Await left heart catheterization that is scheduled on 02/12/2019. The patient was seen in collaboration with Dr. Villagomez. Result Diagram: 02/11/19 0635 02/11/19 0635 Results 24hrs Laboratory Tests Test 02/10/19 23:19 02/11/19 06:35 Sodium Level 137 140 Potassium Level 4.0 4.6 Chloride Level 100 103 Carbon Dioxide Level 29 29 Anion Gap 8 8 Blood Urea Nitrogen 36 #H 36 H Creatinine 1.44 H 1.27 H Est Glomerular Filtrat Rate mL/min Glucose Level 136 112 Calcium Level 9.5 9.4 Magnesium Level 2.0 2.1 White Blood Count 9.7 Red Blood Count 4.36 Hemoglobin 13.4 Hematocrit 40.6 Mean Corpuscular Volume 93.1 Mean Corpuscular Hemoglobin 30.7 Mean Corpuscular Hemoglobin Concent 33.0 Red Cell Distribution Width 13.1 Platelet Count 44 #L Mean Platelet Volume 14.0 H Immature Granulocytes % 0.200 Neutrophils % 55.3 Lymphocytes % 34.5 Monocytes % 6.2 Eosinophils % 3.1 Basophils % 0.7 Nucleated Red Blood Cells % 0.0 Immature Granulocytes # 0.020 Neutrophils # 5.4 Lymphocytes # 3.4 H Monocytes # 0.6 Eosinophils # 0.3 Basophils # 0.1 Nucleated Red Blood Cells # 0.0 Phosphorus Level 5.5 H Total Bilirubin 0.8 Direct Bilirubin 0.00 Indirect Bilirubin 0.8 Aspartate Amino Transf (AST/SGOT) 33 Alanine Aminotransferase (ALT/SGPT) 30 Alkaline Phosphatase 64 Total Protein 7.1 Albumin 3.7 Globulin 3.40 H Albumin/Globulin Ratio 1.08 Exam/Review of Systems Exam Vitals Vital Signs Date Temp Pulse Resp B/P (MAP) Pulse Ox O2 O2 Flow FiO2 Time Delivery Rate 02/11/19 98.2 60 18 142/65 99 11:48 (90) 02/11/19 Nasal 2.0 08:00 Cannula Intake and Output 02/10/19 02/10/19 02/11/19 1515:00 23:00 07:00 IntakeIntake Total 750 ml 340 ml OutputOutput Total 2 ml 3 ml BalanceBalance 748 ml 337 ml Results Results 24hrs Laboratory Tests Test 02/10/19 23:19 02/11/19 06:35 Sodium Level 137 140 Potassium Level 4.0 4.6 Chloride Level 100 103 Carbon Dioxide Level 29 29 Anion Gap 8 8 Blood Urea Nitrogen 36 #H 36 H Creatinine 1.44 H 1.27 H Est Glomerular Filtrat Rate mL/min Glucose Level 136 112 Calcium Level 9.5 9.4 Magnesium Level 2.0 2.1 White Blood Count 9.7 Red Blood Count 4.36 Hemoglobin 13.4 Hematocrit 40.6 Mean Corpuscular Volume 93.1 Mean Corpuscular Hemoglobin 30.7 Mean Corpuscular Hemoglobin Concent 33.0 Red Cell Distribution Width 13.1 Platelet Count 44 #L Mean Platelet Volume 14.0 H Immature Granulocytes % 0.200 Neutrophils % 55.3 Lymphocytes % 34.5 Monocytes % 6.2 Eosinophils % 3.1 Basophils % 0.7 Nucleated Red Blood Cells % 0.0 Immature Granulocytes # 0.020 Neutrophils # 5.4 Lymphocytes # 3.4 H Monocytes # 0.6 Eosinophils # 0.3 Basophils # 0.1 Nucleated Red Blood Cells # 0.0 Phosphorus Level 5.5 H Total Bilirubin 0.8 Direct Bilirubin 0.00 Indirect Bilirubin 0.8 Aspartate Amino Transf (AST/SGOT) 33 Alanine Aminotransferase (ALT/SGPT) 30 Alkaline Phosphatase 64 Total Protein 7.1 Albumin 3.7 Globulin 3.40 H Albumin/Globulin Ratio 1.08 Medications Medication Current Medications IV Flush (NS 3 ml) 3 ml PER PROTOCOL IV ; Start 02/09/19 at 18:00 Acetaminophen (Tylenol Tab) 650 mg Q6H PRN PO .PAIN 1-3 OR TEMP; Start 02/09/19 at 18:00 Aspirin (Halfprin) 81 mg DAILY PO Last administered on 02/11/19 09:19; Admin Dose 81 MG; Start 02/09/19 at 19:30 Labetalol HCl (Normodyne) 200 mg TID PO Last administered on 02/11/19 09:18; Admin Dose 200 MG; Start 02/09/19 at 21:00 Lisinopril (Zestril) 20 mg DAILY PO Last administered on 02/11/19 09:18; Admin Dose 20 MG; Start 02/09/19 at 19:30 Hydrochlorothiazide (Hydrochlorothiazide) 12.5 mg DAILY PO Last administered on 02/11/19 09:18; Admin Dose 12.5 MG; Start 02/09/19 at 19:30 Clonidine (Catapres) 0.1 mg Q4H PRN GTB sbp > 180 Last administered on 02/09/19 21:41; Admin Dose 0.1 MG; Start 02/09/19 at 19:30 Ondansetron HCl (Zofran Inj) 4 mg Q4H PRN IV NAUSEA AND/OR VOMITING Last administered on 02/09/19 22:26; Admin Dose 4 MG; Start 02/09/19 at 22:30 Docusate Sodium (Colace) 100 mg BID PO Last administered on 02/11/19 09:17; Admin Dose 100 MG; Start 02/09/19 at 22:30 Polyethylene Glycol (Miralax) 17 gm DAILY PO Last administered on 02/11/19 09:19; Admin Dose 17 GM; Start 02/09/19 at 22:30 Atorvastatin Calcium (Lipitor) 40 mg QHS PO Last administered on 02/10/19 21:31; Admin Dose 40 MG; Start 02/10/19 at 21:00 Clopidogrel Bisulfate (plaVIX) 75 mg DAILY PO ; Start 02/12/19 at 09:00 KAYLEY DOUGLASS NP February 11, 2019 12:20
[2019-02-11] MEDS: ATORVASTATIN 40 MG TAB PO SCH (20:51)
[2019-02-12] VITALS (47 sets, daily range): BP systolic 119–189; BP diastolic 56–87; PULSE 58–93; RESP 14–27
[2019-02-12] MEDS ORDERED: LIDOCAINE 1% (MDV) 20 ML INJ ONE (07:20)
[2019-02-12] MEDS ORDERED: IODIXANOL LOCM 100 ML BTL ONE (07:20)
[2019-02-12] MEDS ORDERED: MIDAZOLAM 1 MG/ML 2 ML INJ ONE (07:20)
[2019-02-12] MEDS ORDERED: FENTAnyl 50 MCG/ML VIAL ONE (07:20)
--- NOTE | 2019-02-12 07:31 | CONS ---
Consult Date/Type/Reason Admit Date/Time February 09, 2019 at 15:32 Initial Consult Date 02/09/19 Type of Consultation: cv Requesting Provider: KAYLEY DOUGLASS NP Date/Time of Note DATE: 02/12/19 TIME: 07:29 Subjective Interventional cardiology follow-up progress note Subjective: Discussed with the staff telemetry was reviewed. Patient remains mostly in sinus bradycardia/ NSR No syncope or presyncope She still complains of mild chest pain c/o chronic eye poor vision and WINN Objective: General: Obese female in no acute distress HEENT: NC/AT. pupils are equal. round. NECK: NO JVD. no stridor. CV: Bradycardic. systolic murmur; no gallop or rubs. PULM: no wheezing or rhonchi. GI: SOFT, NT, ND, no rebound or guarding Extremity: trace B/L LE edema. no clubbing. neuro: awake and alert, OX3. Psych: calm and pleasant rectal: deferred EKG was personally reviewed showed sinus bradycardia. Nonspecific interventricular conduction delay. Poor R wave progression cannot rule out inferior infarct. Nonspecific ST-T wave abnormalities Chest x-ray shows status post coronary artery bypass graft. No acute cardia pulmonary disease Head CT done in the emergency room shows: 1. No evidence of acute intracranial pathology. 2. Chronic left thalamic lacunar infarct. 3. Mild chronic small vessel ischemic change Objective Vitals Vital Signs Date Temp Pulse Resp B/P (MAP) Pulse Ox O2 O2 Flow FiO2 Time Delivery Rate 02/12/19 72 04:00 02/12/19 98.0 18 156/71 95 03:18 (99) 02/11/19 Nasal 2.0 08:00 Cannula Intake and Output 02/11/19 02/11/19 02/12/19 1515:00 23:00 07:00 IntakeIntake Total 900 ml 600 ml BalanceBalance 900 ml 600 ml Results/Medications Result Diagram: 02/12/19 0611 02/11/19 0635 Results 24 hrs Laboratory Tests Test 02/12/19 06:11 White Blood Count 7.2 # Red Blood Count 4.87 Hemoglobin 15.0 Hematocrit 44.3 Mean Corpuscular Volume 91.0 Mean Corpuscular Hemoglobin 30.8 Mean Corpuscular Hemoglobin Concent 33.9 Red Cell Distribution Width 13.2 Platelet Count 36 L Mean Platelet Volume 13.3 H Immature Granulocytes % 0.300 Neutrophils % 86.2 H Lymphocytes % 6.1 L Monocytes % 3.9 Eosinophils % 2.8 Basophils % 0.7 Nucleated Red Blood Cells % 0.0 Immature Granulocytes # 0.020 Neutrophils # 6.2 Lymphocytes # 0.4 L Monocytes # 0.3 Eosinophils # 0.2 Basophils # 0.1 Nucleated Red Blood Cells # 0.0 Home Meds Reported Medications Metoprolol Succinate* (Toprol XL*) 50 Mg Tab.er.24h, 1 TAB ORAL DAILY 02/09/19 Atorvastatin Calcium* (Atorvastatin Calcium*) 20 Mg Tablet, 20 MG PO QHS, #30 TAB 02/09/19 Aspirin Delayed Release (Aspirin Delayed Release) 81 Mg Tablet.dr, 1 TAB ORAL DAILY 02/09/19 Discontinued Reported Medications Docusate Sodium* (Docusate Sodium*) 100 Mg Capsule, 100 MG PO DAILY 01/12/12 Losartan Potassium* (Cozaar*) 25 Mg Tablet, 25 MG PO DAILY 01/12/12 Nitroglycerin* (Nitrostat*) 0.4 Mg Tab.subl, 0.4 MG PO PRN 01/12/12 Calcium Carbonate* (Oysco-500*) 1 Tab Tablet, 1 TAB PO BID 01/12/12 Aspirin (Aspirin) 81 Mg Tablet, 1 TAB PO DAILY 01/12/12 Medications Current Medications IV Flush (NS 3 ml) 3 ml PER PROTOCOL IV ; Start 02/09/19 at 18:00 Acetaminophen (Tylenol Tab) 650 mg Q6H PRN PO .PAIN 1-3 OR TEMP; Start 02/09/19 at 18:00 Aspirin (Halfprin) 81 mg DAILY PO Last administered on 02/11/19at 09:19; Admin Dose 81 MG; Start 02/09/19 at 19:30 Labetalol HCl (Normodyne) 200 mg TID PO Last administered on 02/11/19at 20:51; Admin Dose 200 MG; Start 02/09/19 at 21:00 Lisinopril (Zestril) 20 mg DAILY PO Last administered on 02/11/19at 09:18; Admin Dose 20 MG; Start 02/09/19 at 19:30 Hydrochlorothiazide (Hydrochlorothiazide) 12.5 mg DAILY PO Last administered on 02/11/19at 09:18; Admin Dose 12.5 MG; Start 02/09/19 at 19:30 Clonidine (Catapres) 0.1 mg Q4H PRN GTB sbp > 180 Last administered on 02/09/19at 21:41; Admin Dose 0.1 MG; Start 02/09/19 at 19:30 Ondansetron HCl (Zofran Inj) 4 mg Q4H PRN IV NAUSEA AND/OR VOMITING Last administered on 02/09/19 22:26; Admin Dose 4 MG; Start 02/09/19 at 22:30 Docusate Sodium (Colace) 100 mg BID PO Last administered on 02/11/19 20:51; Admin Dose 100 MG; Start 02/09/19 at 22:30 Polyethylene Glycol (Miralax) 17 gm DAILY PO Last administered on 02/11/19 09:19; Admin Dose 17 GM; Start 02/09/19 at 22:30 Atorvastatin Calcium (Lipitor) 40 mg QHS PO Last administered on 02/11/19 20:51; Admin Dose 40 MG; Start 02/10/19 at 21:00 Clopidogrel Bisulfate (plaVIX) 75 mg DAILY PO ; Start 02/12/19 at 09:00 Assessment/Plan Hospital Course (Demo Recall) 1. Hypertensive urgency 2. Chest pain / ACS with abnormal CT erick angio 3. Coronary artery disease 4. History of prior coronary artery bypass graft 5. Dyslipidemia 6. History of CVA based on the head CT 7. Morbid obesity 8. Marked sinus bradycardia Recommendation: CONT patient on lisinopril as well as hydrochlorothiazide. Continue with labetalol start of metoprolol given her bradycardia Echocardiogram shows EF 50% thyroid function tests were checked which was within normal limits CONT Aspirin Increase Lipitor to keep the LDL goal less than [address] ERICK ANGIO RESULTS REVIEWED which shows SVG graft is closed. plan for [facility] erick PCI. 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 Risks including but not limited to risk of infection vascular complication bleeding complication PA stroke arrhythmia renal failure etc. discussed with her. She has discussed it with her family and consented to procedure. Plan for the procedure this morning Thank you for his referral. We will continue to follow along with you ACE FERNÁNDEZ MD [facility] ACE FERNÁNDEZ MD February 12, 2019 07:31
[2019-02-12] MEDS ORDERED: NITROGLYCERIN (IC) 100 MCG/ML INJ ONE ×2 (07:54→08:05)
[2019-02-12] MEDS ORDERED: IOHEXOL 350MG/ML 50 ML BTL ONE (07:55)
[2019-02-12] MEDS ORDERED: BIVALIRUDIN 250MG /NS 50 ML 50 ML IVPB ONE (07:55)
[2019-02-12] MEDS ORDERED: ASPIRIN 81 MG TAB ONE (08:19)
[2019-02-12] MEDS ORDERED: CLOPIDOGREL 300 MG TAB ONE (08:19)
[2019-02-12] MEDS ORDERED: SOD CHLORIDE 0.9% 1,000 ML IV SCH (08:32)
--- NOTE | 2019-02-12 08:32 | OPR ---
Date/Time of Note Date/Time of Note DATE: 02/12/19 TIME: 08:25 Operative Report Procedure Date: February 12, 2019 Preoperative Diagnosis ACS Postoperative Diagnosis ACS Operation/Procedure Performed PCI LCX Surgeon see signature line Picture Booker YOLA Anesthesia Type: moderate sedation Estimated Blood Loss: minimal Transfusion none Specimen none Grafts/Implants none Complications none Procedure Description Health Information Administrator: Ace Lares MD Indication: 78-year-old female with history of coronary artery bypass graft who presented with unstable angina acute coronary syndrome recurrent chest pain. CT angiogram showed patent BANERJEE to LAD and saphenous vein graft to the right. Saphenous vein on the left coronary artery was occluded. Subsequently other has significant stenosis. Because of her recurrent chest pain/unstable angina she was recommended on undergo diagnostic angiography and PCI Procure performed: #1 left heart catheterization and selective right and left coronary angiogram #2 Right femoral angiogram and closure using a Perclose device 3. Successful PTCA and stenting of mid left circumflex artery using a 2.5 x 20 mm Synergy drug-eluting stent 4. Moderate sedation for more than 60 minutes 5. Selective saphenous vein graft angiography Findings: 1. Left main: is short and birfurcates to LAD & LCX with mild calcified plaque. 2. LAD: has 100 % stenosis at proximal LAD Based on the CT coronary angiogram with BANERJEE to LAD was patent. To avoid excessive use of contrast BANERJEE was not selectively engaged. 3. Left circumflex artery: is nondominant. it has 50 to 60% calcified stenosis proximally. Mid level has 99% stenosis. After successful PCI of this lesion no significant residual stenosis left Saphenous vein graft to obtuse marginal could not be visualized. Based on the CT coronary angiogram it was completely occluded. 4. RCA: is dominant. it has 100 % stenosis proximally. Saphenous vein graft to the PDA is widely patent. Posterolateral is filled from PDA from the graft. There is about 95% ostial stenosis at the ostium of the PDA. Posterolateral itself has about 95% distal stenosis as well. 5. LV: 162/9 aortic pressure by pull back: 158/45 Procedure in detail: Written informed consent with obtained after risks benefits and alternatives discussed with the patient in detail. risks including but not limited to risk of infection vascular complications, bleeding complications, MA stroke arrhythmia renal failure at even were discussed with the patient in detail. Patient was brought into the cardiac pit laborer and placed in supine position. Right and left groin area was prepped and draped in regular sterile fashion and then he was in anesthetized using 1% lidocaine. Right femoral artery was cannulated and using modified seldinger technique a 6 Armenian sheath was placed in the femoral artery. Femoral angiogram was performed JL4 guiding catheter was advanced to engage the left main coronary artery angiographic view was obtained. JR4 catheter was advanced and engaged into the right coronary artery and angiographic view was obtained. JR4 catheter was advanced and engaged saphenous vein graft angiographic view was obtained. Then a JR4 was advanced to engage the left ventricle hemodynamics as recorded by pullback aortic pressure was measured. At this time we decided to perform PCI of the left circumflex artery. A JL4 guiding catheter was advanced to engage the left main coronary artery. BMW wire was used and advanced across the lesion and placed distal to the lesion. I used a 2 x 12 mm balloon which was placed across the lesion and predilated the vessel. Then I used a 2.5 x 20 mm Synergy stent which was placed across the lesion and deployed at 14 Joshua. Final angiographic view was obtained which showed JULITA-3 flow no evidence of dissection and no significant residual stenosis at the site of the stent. perclose was successfully deployed. Patient tolerated the procedure well with no complication. Patient was transf erred to recovery room in stable condition contrast used: 75 cc Visipaque Conclusions: Successful PTCA stenting of the left circumflex artery from 99% stenosis to no significant residual stenosis using a 2.5 x 20 mm Synergy drug- eluting stent. Recommendations: Aggressive medical therapy. aspirin indefinitely dual antiplatlet therapy with aspirin and Plavix ACE LARES MD [facility] ACE LARES MD February 12, 2019 08:32
[2019-02-12] MEDS ORDERED: morphine 2 MG INJ IV PRN (09:00)
[2019-02-12] MEDS ORDERED: ACETAMINOPHEN 325 MG TAB PO PRN (09:00)
[2019-02-12] MEDS: ASPIRIN (EC) 81 MG TAB PO SCH (09:00)
[2019-02-12] MEDS: CLOPIDOGREL 75 MG TAB PO SCH (09:00)
[2019-02-12] MEDS ORDERED: OXYCODONE/ACETAMINOPHEN (5/325) TAB PO PRN ×2 (09:00)
[2019-02-12] MEDS: DOCUSATE SODIUM 100 MG CAP PO SCH ×5 (09:00→21:17)
--- NOTE | 2019-02-12 11:21 | PN ---
Date/Time of Note Date/Time of Note DATE: 02/12/19 TIME: 11:19 Assessment/Plan VTE Prophylaxis Risk score (from Ns)>0 risk: 5 SCD applied (from Ns): Yes Pharmacological prophylaxis: NA/contraindicated Pharm contraindication: thrombocytopenia Lines/Catheters IV Catheter Type (from [facility]): Peripheral IV Urinary Cath still in place: No Assessment/Plan Hospital Course SUBJECTIVE: Blood pressure better controlled. Denies any headache at this time. OBJECTIVE: Physical Exam General: Obese 78 year-old female lying in bed in no apparent distress. HEENT: Normocephalic, atraumatic. Eyes: Anicteric sclerae, conjunctivae clear. ENT: Nasal septum midline, oral mucosa moist. Neck supple, no JVD noticed. Respiratory: Bilaterally diminished breath sounds. No use of accessory muscles of respiration. No adventitious breath sounds. Cardiovascular: S1, S2 heard. Regular rate and rhythm. Abdomen: Soft, nontender, and nondistended. Bowel sounds positive in all 4 quadrants. Genitourinary: Deferred. Extremities: No cyanosis, no clubbing, no edema. Peripheral pulses palpable. Neurologic: The patient is awake, alert, and oriented. Skin: Normal skin turgor. No skin rashes. Labs & Vitals per chart ASSESSMENT & PLAN 78-year-old female with comorbidities including hypertension, dyslipidemia, CAD status post coronary artery bypass grafting, obesity, and thrombocytopenia who came to the emergency room with chief complaint of occipital headache and chest pain, who was found to have evidence of underlying hypertensive emergency and was admitted to inpatient setting for further treatment and evaluation. 1. Hypertensive urgency. -Etiology unclear. -Lower the patient's blood pressure gradually. -Cardiology following. 2. Chest pain. -Cardiac CT showing clips extending towards OM territory suggesting an occluded graft. -S/P successful PTCA stenting of the left circumflex artery from 99% stenosis to no significant residual stenosis using a 2.5 x 20 mm Synergy drug-eluting stent. -Initiated on dual antiplatelet therapy. 3. CAD. Status post CABG. -Continue statins and antiplatelet therapy. 4. Dyslipidemia. -Resume statins. 5. ONEIDA. -Most probably contrast induced. -Avoid nephrotoxic medications. 6. Thrombocytopenia. -Etiology unclear. -LFTs within normal limits. -Monitor for any bleeding. 7. Obesity. -BMI more than 32 kg/m. -Advised weight reduction. -Hemoglobin A1c of 6.0, indicating prediabetes. 8. Fluids, electrolytes, and nutrition. -Low-cholesterol diet. 9. DVT prophylaxis. -Bilateral SCDs. -Chemical DVT prophylaxis contraindicated because of underlying thrombocytopenia. 10. Plan. -Continue blood pressure control. -Await clinical improvement and clearance from cardiology before discharging the patient home. The patient was seen in collaboration with Dr. Villagomez. Result Diagram: 02/12/19 0611 02/12/19 0611 Results 24hrs Laboratory Tests Test 02/12/19 06:11 White Blood Count 7.2 # Red Blood Count 4.87 Hemoglobin 15.0 Hematocrit 44.3 Mean Corpuscular Volume 91.0 Mean Corpuscular Hemoglobin 30.8 Mean Corpuscular Hemoglobin Concent 33.9 Red Cell Distribution Width 13.2 Platelet Count 36 L Mean Platelet Volume 13.3 H Immature Granulocytes % 0.300 Neutrophils % 86.2 H Lymphocytes % 6.1 L Monocytes % 3.9 Eosinophils % 2.8 Basophils % 0.7 Nucleated Red Blood Cells % 0.0 Immature Granulocytes # 0.020 Neutrophils # 6.2 Lymphocytes # 0.4 L Monocytes # 0.3 Eosinophils # 0.2 Basophils # 0.1 Nucleated Red Blood Cells # 0.0 Sodium Level 139 Potassium Level 4.6 Chloride Level 101 Carbon Dioxide Level 29 Anion Gap 9 Blood Urea Nitrogen 30 H Creatinine 1.03 H Est Glomerular Filtrat Rate mL/min Glucose Level 123 Calcium Level 9.8 Magnesium Level 2.0 Total Bilirubin 1.1 Direct Bilirubin 0.00 Indirect Bilirubin 1.1 Aspartate Amino Transf (AST/SGOT) 29 Alanine Aminotransferase (ALT/SGPT) 29 Alkaline Phosphatase 73 Creatine Kinase 56 Creatine Kinase Index 1.1 Creatinine Kinase MB (Mass) 0.59 Troponin I 0.042 Total Protein 7.4 Albumin 4.1 Globulin 3.30 H Albumin/Globulin Ratio 1.24 Exam/Review of Systems Exam Vitals Vital Signs Date Temp Pulse Resp B/P (MAP) Pulse Ox O2 O2 Flow FiO2 Time Delivery Rate 02/12/19 98.2 64 19 119/72 96 11:11 (88) 02/12/19 Room Air 09:39 02/11/19 2.0 08:00 Intake and Output 02/11/19 02/11/19 02/12/19 1515:00 23:00 07:00 IntakeIntake Total 900 ml 600 ml BalanceBalance 900 ml 600 ml Results Results 24hrs Laboratory Tests Test 02/12/19 06:11 White Blood Count 7.2 # Red Blood Count 4.87 Hemoglobin 15.0 Hematocrit 44.3 Mean Corpuscular Volume 91.0 Mean Corpuscular Hemoglobin 30.8 Mean Corpuscular Hemoglobin Concent 33.9 Red Cell Distribution Width 13.2 Platelet Count 36 L Mean Platelet Volume 13.3 H Immature Granulocytes % 0.300 Neutrophils % 86.2 H Lymphocytes % 6.1 L Monocytes % 3.9 Eosinophils % 2.8 Basophils % 0.7 Nucleated Red Blood Cells % 0.0 Immature Granulocytes # 0.020 Neutrophils # 6.2 Lymphocytes # 0.4 L Monocytes # 0.3 Eosinophils # 0.2 Basophils # 0.1 Nucleated Red Blood Cells # 0.0 Sodium Level 139 Potassium Level 4.6 Chloride Level 101 Carbon Dioxide Level 29 Anion Gap 9 Blood Urea Nitrogen 30 H Creatinine 1.03 H Est Glomerular Filtrat Rate mL/min Glucose Level 123 Calcium Level 9.8 Magnesium Level 2.0 Total Bilirubin 1.1 Direct Bilirubin 0.00 Indirect Bilirubin 1.1 Aspartate Amino Transf (AST/SGOT) 29 Alanine Aminotransferase (ALT/SGPT) 29 Alkaline Phosphatase 73 Creatine Kinase 56 Creatine Kinase Index 1.1 Creatinine Kinase MB (Mass) 0.59 Troponin I 0.042 Total Protein 7.4 Albumin 4.1 Globulin 3.30 H Albumin/Globulin Ratio 1.24 Medications Medication Current Medications IV Flush (NS 3 ml) 3 ml PER PROTOCOL IV ; Start 02/09/19 at 18:00 Acetaminophen (Tylenol Tab) 650 mg Q6H PRN PO .PAIN 1-3 OR TEMP; Start 02/09/19 at 18:00 Aspirin (Halfprin) 81 mg DAILY PO Last administered on 02/11/19at 09:19; Admin Dose 81 MG; Start 02/09/19 at 19:30 Labetalol HCl (Normodyne) 200 mg TID PO Last administered on 02/11/19at 20:51; Admin Dose 200 MG; Start 02/09/19 at 21:00 Lisinopril (Zestril) 20 mg DAILY PO Last administered on 02/11/19at 09:18; Admin Dose 20 MG; Start 02/09/19 at 19:30 Hydrochlorothiazide (Hydrochlorothiazide) 12.5 mg DAILY PO Last administered on 02/11/19 09:18; Admin Dose 12.5 MG; Start 02/09/19 at 19:30 Clonidine (Catapres) 0.1 mg Q4H PRN GTB sbp > 180 Last administered on 02/09/19 21:41; Admin Dose 0.1 MG; Start 02/09/19 at 19:30 Ondansetron HCl (Zofran Inj) 4 mg Q4H PRN IV NAUSEA AND/OR VOMITING Last administered on 02/09/19 22:26; Admin Dose 4 MG; Start 02/09/19 at 22:30 Docusate Sodium (Colace) 100 mg BID PO Last administered on 02/11/19 20:51; Admin Dose 100 MG; Start 02/09/19 at 22:30 Polyethylene Glycol (Miralax) 17 gm DAILY PO Last administered on 02/11/19 09:19; Admin Dose 17 GM; Start 02/09/19 at 22:30 Atorvastatin Calcium (Lipitor) 40 mg QHS PO Last administered on 02/11/19 20:51; Admin Dose 40 MG; Start 02/10/19 at 21:00 Clopidogrel Bisulfate (plaVIX) 75 mg DAILY PO ; Start 02/12/19 at 09:00 Clopidogrel Bisulfate (plaVIX) 75 mg DAILY PO ; Start 02/13/19 at 09:00 Acetaminophen (Tylenol Tab) 650 mg Q4H PRN PO PAIN; Start 02/12/19 at 09:00 Oxycodone/ Acetaminophen (Percocet (5/ 325)) 1 tab Q4H PRN PO PAIN; Start 02/12/19 at 09:00 Oxycodone/ Acetaminophen (Percocet (5/ 325)) 2 tab Q4H PRN PO PAIN; Start 02/12/19 at 09:00 Morphine Sulfate (morphine) 1 mg Q1H PRN IV PAIN LEVEL 6-10; Start 02/12/19 at 09:00 Docusate Sodium (Colace) 100 mg BID PO ; Start 02/12/19 at 09:00 Sodium Chloride 1,000 ml @ 75 mls/hr [id number] IV ; Start 02/12/19 at 08:32; Stop 02/12/19 at 21:51 KAYLEY DOUGLASS NP February 12, 2019 11:21
[2019-02-12] MEDS: POLYETHYLENE GLYCOL 17 GM PACKET PO SCH ×2 (11:31→11:43)
[2019-02-12] MEDS: LABETALOL 200 MG TAB PO SCH ×3 (11:32→21:18)
[2019-02-12] MEDS: HYDROCHLOROTHIAZIDE 12.5 MG CAP PO SCH (11:33)
[2019-02-12] MEDS: LISINOPRIL 20 MG TAB PO SCH (11:33)
[2019-02-12] MEDS: ATORVASTATIN 40 MG TAB PO SCH (21:17)
[2019-02-13] VITALS (13 sets, daily range): BP systolic 130–200; BP diastolic 61–89; PULSE 53–69; RESP 18–19
[2019-02-13] MEDS: DOCUSATE SODIUM 100 MG CAP PO SCH ×3 (08:52→21:05)
[2019-02-13] MEDS: CLOPIDOGREL 75 MG TAB PO SCH (08:52)
[2019-02-13] MEDS: ASPIRIN (EC) 81 MG TAB PO SCH (08:52)
[2019-02-13] MEDS: LISINOPRIL 20 MG TAB PO SCH (08:53)
[2019-02-13] MEDS: HYDROCHLOROTHIAZIDE 12.5 MG CAP PO SCH (08:54)
[2019-02-13] MEDS: LABETALOL 200 MG TAB PO SCH ×3 (08:54→21:06)
[2019-02-13] MEDS ORDERED: CLOPIDOGREL 75 MG TAB PO SCH (09:00)
[2019-02-13] MEDS ORDERED: CLOP75TA28 PO (09:07)
[2019-02-13] MEDS ORDERED: ATOR40TA68 PO (09:07)
[2019-02-13] MEDS ORDERED: LABE200T25 PO (09:07)
[2019-02-13] MEDS ORDERED: HYDR12.53 PO (09:07)
[2019-02-13] MEDS ORDERED: LISI-471 PO (09:07)
[2019-02-13] MEDS ORDERED: ASPI-1044 PO (09:08)
--- NOTE | 2019-02-13 09:16 | PDOCDIS ---
Discharge Instructions CONDITION [id number] Patient Condition: Phsee0y Stable HOME CARE INSTRUCTIONS: [id number] Diet Instructions: [id number] Low Fat /Cholesterol FOLLOW UP/APPOINTMENTS Follow-up Plan Kush Lares MD Specialty: Interventional Cardiology Office Address [id number] [place] [address] Office OTHER ORDERS: Other Orders: 1. Take medications as per prescription. -Continue aspirin plus Plavix. 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 -Stop taking Toprol-XL. Start taking labetalol, lisinopril, and hydrochlorothiazide instead. -Start taking increased dose of atorvastatin. 2. Resume activities as tolerated. 3. Follow a low-cholesterol diet. 4. Follow-up with outpatient cardiology (Dr. Lares) in 2 weeks. 5. Please go to the nearest emergency room if you have any significant chest pain, significant shortness of breath, or any other unusual signs/symptoms. 1. Ora medicamentos segn la prescripcin. -Continuar con aspirina ms Plavix. No deje de ora aspirina y Plavix a menos que hable con [place] cardilogo. -Detente de ora Toprol-XL. Comience a ora labetalol, lisinopril e hidroclorotiazida en [place] lugar. -Empieza a ora dosis aumentadas de atorvastatina. 2. Reanudar las actividades segn lo tolerado. 3. Siga nahid dieta baja en colesterol. 4. Seguimiento con cardiologa ambulatoria (Dr. Lares) en 2 semanas. 5. Vaya a la shashi de emergencias ms cercana si tiene un dolor torcico significativo, falta de aire o cualquier otro sntoma o sntoma inusual. KAYLEY DOUGLASS NP February 13, 2019 09:16
[2019-02-13] MEDS ORDERED: SOD CHLORIDE 0.9% 250 ML IV* ONE (10:22)
--- NOTE | 2019-02-13 11:34 | PN ---
Date/Time of Note Date/Time of Note DATE: 02/13/19 TIME: 11:33 Assessment/Plan VTE Prophylaxis [place] [facility] risk: 3 SCD applied [place] [facility] No SCD contraindicated: other Pharmacological prophylaxis: NA/contraindicated Pharm contraindication: thrombocytopenia Lines/Catheters [facility] Saline Lock Urinary Cath still in place: No Assessment/Plan Hospital Course SUBJECTIVE: Blood pressure better controlled. Denies any headache at this time. OBJECTIVE: Physical Exam General: Obese 78 year-old female lying in bed in no apparent distress. HEENT: Normocephalic, atraumatic. Eyes: Anicteric sclerae, conjunctivae clear. ENT: Nasal septum midline, oral mucosa moist. Neck supple, no JVD noticed. Respiratory: Bilaterally diminished breath sounds. No use of accessory muscles of respiration. No adventitious breath sounds. Cardiovascular: S1, S2 heard. Regular rate and rhythm. Abdomen: Soft, nontender, and nondistended. Bowel sounds positive in all 4 quadrants. Genitourinary: Deferred. Extremities: No cyanosis, no clubbing, no edema. Peripheral pulses palpable. Neurologic: The patient is awake, alert, and oriented. Skin: Normal skin turgor. No skin rashes. Labs & Vitals per chart ASSESSMENT & PLAN 78-year-old female with comorbidities including hypertension, dyslipidemia, CAD status post coronary artery bypass grafting, obesity, and thrombocytopenia who came to the emergency room with chief complaint of occipital headache and chest pain, who was found to have evidence of underlying hypertensive emergency and was admitted to inpatient setting for further treatment and evaluation. 1. Hypertensive urgency. -Etiology unclear. -Blood pressure well controlled. -Cardiology following. 2. Chest pain. -Cardiac CT showing clips extending towards OM territory suggesting an occluded graft. -S/P successful PTCA stenting of the left circumflex artery from 99% stenosis to no significant residual stenosis using a 2.5 x 20 mm Synergy drug-eluting stent. -Initiated on dual antiplatelet therapy. 3. CAD. Status post CABG. -Continue statins and antiplatelet therapy. 4. Dyslipidemia. -Resume statins. 5. ONEIDA. -Most probably contrast induced. -Avoid nephrotoxic medications. 6. Thrombocytopenia. -Etiology unclear. -LFTs within normal limits. -Monitor for any bleeding. -Obtain hematology consult. 7. Obesity. -BMI more than 32 kg/m. -Advised weight reduction. -Hemoglobin A1c of 6.0, indicating prediabetes. 8. Fluids, electrolytes, and nutrition. -Low-cholesterol diet. 9. DVT prophylaxis. -Bilateral SCDs. -Chemical DVT prophylaxis contraindicated because of underlying thrombocytopenia. 10. Plan. -Continue blood pressure control. -Transfuse for platelets because of worsening thrombocytopenia. -Obtain hematology evaluation for underlying thrombocytopenia specifically since the patient needs to be on aspirin and Plavix The patient was seen in collaboration with Dr. Villagomez. Result Diagram: 02/13/1944 02/13/1944 Results 24hrs Laboratory Tests Test 02/13/19 05:44 White Blood Count 7.7 Red Blood Count 4.48 Hemoglobin 14.0 Hematocrit 40.7 Mean Corpuscular Volume 90.8 Mean Corpuscular Hemoglobin 31.3 Mean Corpuscular Hemoglobin Concent 34.4 Red Cell Distribution Width 13.0 Platelet Count 16 #*L Mean Platelet Volume 15.5 H Immature Granulocytes % 0.400 Neutrophils % 68.0 Lymphocytes % 16.9 Monocytes % 9.0 Eosinophils % 4.8 Basophils % 0.9 Nucleated Red Blood Cells % 0.0 Immature Granulocytes # 0.030 Neutrophils # 5.2 Lymphocytes # 1.3 Monocytes # 0.7 Eosinophils # 0.4 Basophils # 0.1 Nucleated Red Blood Cells # 0.0 Sodium Level 139 Potassium Level 4.2 Chloride Level 105 Carbon Dioxide Level 27 Anion Gap 7 Blood Urea Nitrogen 24 H Creatinine 1.01 H Est Glomerular Filtrat Rate mL/min Glucose Level 123 Calcium Level 9.5 Phosphorus Level 3.5 # Magnesium Level 2.0 Total Bilirubin 0.7 Direct Bilirubin 0.00 Indirect Bilirubin 0.7 Aspartate Amino Transf (AST/SGOT) 25 Alanine Aminotransferase (ALT/SGPT) 31 Alkaline Phosphatase 67 Total Protein 6.5 Albumin 3.6 Globulin 2.90 Albumin/Globulin Ratio 1.24 Exam/Review of Systems Exam Vitals Vital Signs Date Temp Pulse Resp B/P (MAP) Pulse Ox O2 O2 Flow FiO2 Time Delivery Rate 02/13/19 98.1 62 18 154/69 96 11:29 (97) 02/13/19 Room Air 04:00 02/11/19 2.0 08:00 Intake and Output 02/12/19 02/12/19 02/13/19 1515:00 23:00 07:00 IntakeIntake Total 200 ml 240 ml BalanceBalance 200 ml 240 ml Results Results 24hrs Laboratory Tests Test 02/13/19 05:44 White Blood Count 7.7 Red Blood Count 4.48 Hemoglobin 14.0 Hematocrit 40.7 Mean Corpuscular Volume 90.8 Mean Corpuscular Hemoglobin 31.3 Mean Corpuscular Hemoglobin Concent 34.4 Red Cell Distribution Width 13.0 Platelet Count 16 #*L Mean Platelet Volume 15.5 H Immature Granulocytes % 0.400 Neutrophils % 68.0 Lymphocytes % 16.9 Monocytes % 9.0 Eosinophils % 4.8 Basophils % 0.9 Nucleated Red Blood Cells % 0.0 Immature Granulocytes # 0.030 Neutrophils # 5.2 Lymphocytes # 1.3 Monocytes # 0.7 Eosinophils # 0.4 Basophils # 0.1 Nucleated Red Blood Cells # 0.0 Sodium Level 139 Potassium Level 4.2 Chloride Level 105 Carbon Dioxide Level 27 Anion Gap 7 Blood Urea Nitrogen 24 H Creatinine 1.01 H Est Glomerular Filtrat Rate mL/min Glucose Level 123 Calcium Level 9.5 Phosphorus Level 3.5 # Magnesium Level 2.0 Total Bilirubin 0.7 Direct Bilirubin 0.00 Indirect Bilirubin 0.7 Aspartate Amino Transf (AST/SGOT) 25 Alanine Aminotransferase (ALT/SGPT) 31 Alkaline Phosphatase 67 Total Protein 6.5 Albumin 3.6 Globulin 2.90 Albumin/Globulin Ratio 1.24 Medications Medication Current Medications IV Flush (NS 3 ml) 3 ml PER PROTOCOL IV ; Start 02/09/19 at 18:00 Acetaminophen (Tylenol Tab) 650 mg Q6H PRN PO .PAIN 1-3 OR TEMP Last administered on 02/12/19at 12:32; Admin Dose 650 MG; Start 02/09/19 at 18:00 Aspirin (Halfprin) 81 mg DAILY PO Last administered on 02/13/19at 08:52; Admin Dose 81 MG; Start 02/09/19 at 19:30 Labetalol HCl (Normodyne) 200 mg TID PO Last administered on 02/13/19at 08:54; Admin Dose 200 MG; Start 02/09/19 at 21:00 Lisinopril (Zestril) 20 mg DAILY PO Last administered on 02/13/19at 08:53; Admin Dose 20 MG; Start 02/09/19 at 19:30 Hydrochlorothiazide (Hydrochlorothiazide) 12.5 mg DAILY PO Last administered on 02/13/19at 08:54; Admin Dose 12.5 MG; Start 02/09/19 at 19:30 Clonidine (Catapres) 0.1 mg Q4H PRN GTB sbp > 180 Last administered on 02/12/19 at 14:26; Admin Dose 0.1 MG; Start 02/09/19 at 19:30 Ondansetron HCl (Zofran Inj) 4 mg Q4H PRN IV NAUSEA AND/OR VOMITING Last administered on 02/09/19at 22:26; Admin Dose 4 MG; Start 02/09/19 at 22:30 Polyethylene Glycol (Miralax) 17 gm DAILY PO Last administered on 02/11/19at 09:19; Admin Dose 17 GM; Start 02/09/19 at 22:30 Atorvastatin Calcium (Lipitor) 40 mg QHS PO Last administered on 02/12/19at 21:17; Admin Dose 40 MG; Start 02/10/19 at 21:00 Clopidogrel Bisulfate (plaVIX) 75 mg DAILY PO Last administered on 02/13/19at 08:52; Admin Dose 75 MG; Start 02/12/19 at 09:00 Acetaminophen (Tylenol Tab) 650 mg Q4H PRN PO PAIN; Start 02/12/19 at 09:00 Oxycodone/ Acetaminophen (Percocet (5/ 325)) 1 tab Q4H PRN PO PAIN; Start 02/12/19 at 09:00 Oxycodone/ Acetaminophen (Percocet (5/ 325)) 2 tab Q4H PRN PO PAIN; Start 02/12/19 at 09:00 Morphine Sulfate (morphine) 1 mg Q1H PRN IV PAIN LEVEL 6-10; Start 02/12/19 at 09:00 Docusate Sodium (Colace) 100 mg BID PO ; Start 02/12/19 at 09:00 KAYLEY DOUGLASS NP February 13, 2019 11:34
--- NOTE | 2019-02-13 12:44 | RADRPT ---
Vent Rate: 61 bpm RR Interval: 988 msec FL Interval: 166 msec QRS Duration: 104 msec QT Interval: 414 msec QTC Interval: 417 msec P-R-T [place]: 40 - 59 - 186 degrees Sinus rhythm...normal P axis, V-rate 50- 99 Nonspecific repol abnormality, diffuse leads...ST dep, T flat/neg, ant/lat/inf Electronically Signed By: Ole Fontanez
--- NOTE | 2019-02-13 13:55 | CONS ---
Consult Date/Type/Reason Admit Date/Time February 09, 2019 at 15:32 Initial Consult Date 02/09/19 Type of Consultation: cv Requesting Provider: KAYLEY DOUGLASS NP Date/Time of Note DATE: 02/13/19 TIME: 13:53 Subjective Interventional cardiology follow-up progress note Subjective: Discussed with the staff telemetry was reviewed. Patient remains mostly in sinus bradycardia/ NSR No syncope or presyncope no chest pain mild groin pain no bleeding Objective: General: Obese female in no acute distress HEENT: NC/AT. pupils are equal. round. NECK: NO JVD. no stridor. CV: Bradycardic. systolic murmur; no gallop or rubs. PULM: no wheezing or rhonchi. GI: SOFT, NT, ND, no rebound or guarding Extremity: trace B/L LE edema. no clubbing. neuro: awake and alert, OX3. Psych: calm and pleasant rectal: deferred R femoral no bleeding or hematoma. no bruits EKG was personally reviewed showed sinus bradycardia. Nonspecific interventricular conduction delay. Poor R wave progression cannot rule out inferior infarct. Nonspecific ST-T wave abnormalities Chest x-ray shows status post coronary artery bypass graft. No acute cardia pulmonary disease Head CT done in the emergency room shows: 1. No evidence of acute intracranial pathology. 2. Chronic left thalamic lacunar infarct. 3. Mild chronic small vessel ischemic change Objective Vitals Vital Signs Date Temp Pulse Resp B/P (MAP) Pulse Ox O2 O2 Flow FiO2 Time Delivery Rate 02/13/19 59 12:10 02/13/19 98.1 18 154/69 96 11:29 (97) 02/13/19 Room Air 04:00 02/11/19 2.0 08:00 Intake and Output 02/12/19 02/12/19 02/13/19 1515:00 23:00 07:00 IntakeIntake Total 200 ml 240 ml BalanceBalance 200 ml 240 ml Results/Medications Result Diagram: 02/13/19 0544 02/13/19 0544 Results 24 hrs Laboratory Tests Test 02/13/19 05:44 White Blood Count 7.7 Red Blood Count 4.48 Hemoglobin 14.0 Hematocrit 40.7 Mean Corpuscular Volume 90.8 Mean Corpuscular Hemoglobin 31.3 Mean Corpuscular Hemoglobin Concent 34.4 Red Cell Distribution Width 13.0 Platelet Count 16 #*L Mean Platelet Volume 15.5 H Immature Granulocytes % 0.400 Neutrophils % 68.0 Lymphocytes % 16.9 Monocytes % 9.0 Eosinophils % 4.8 Basophils % 0.9 Nucleated Red Blood Cells % 0.0 Immature Granulocytes # 0.030 Neutrophils # 5.2 Lymphocytes # 1.3 Monocytes # 0.7 Eosinophils # 0.4 Basophils # 0.1 Nucleated Red Blood Cells # 0.0 Sodium Level 139 Potassium Level 4.2 Chloride Level 105 Carbon Dioxide Level 27 Anion Gap 7 Blood Urea Nitrogen 24 H Creatinine 1.01 H Est Glomerular Filtrat Rate mL/min Glucose Level 123 Calcium Level 9.5 Phosphorus Level 3.5 # Magnesium Level 2.0 Total Bilirubin 0.7 Direct Bilirubin 0.00 Indirect Bilirubin 0.7 Aspartate Amino Transf (AST/SGOT) 25 Alanine Aminotransferase (ALT/SGPT) 31 Alkaline Phosphatase 67 Total Protein 6.5 Albumin 3.6 Globulin 2.90 Albumin/Globulin Ratio 1.24 Home Meds Reported Medications Metoprolol Succinate* (Toprol XL*) 50 Mg Tab.er.24h, 1 TAB ORAL DAILY 02/09/19 Atorvastatin Calcium* (Atorvastatin Calcium*) 20 Mg Tablet, 20 MG PO QHS, #30 TAB 02/09/19 Aspirin Delayed Release (Aspirin Delayed Release) 81 Mg Tablet.dr, 1 TAB ORAL DAILY 02/09/19 Discontinued Reported Medications Docusate Sodium* (Docusate Sodium*) 100 Mg Capsule, 100 MG PO DAILY 01/12/12 Losartan Potassium* (Cozaar*) 25 Mg Tablet, 25 MG PO DAILY 01/12/12 Nitroglycerin* (Nitrostat*) 0.4 Mg Tab.subl, 0.4 MG PO PRN 01/12/12 Calcium Carbonate* ([place]ysco-500*) 1 Tab Tablet, 1 TAB PO BID 01/12/12 Aspirin (Aspirin) 81 Mg Tablet, 1 TAB PO DAILY 01/12/12 Medications Current Medications IV Flush (NS 3 ml) 3 ml PER PROTOCOL IV ; Start 02/09/19 at 18:00 Acetaminophen (Tylenol Tab) 650 mg Q6H PRN PO .PAIN 1-3 OR TEMP Last administered on 02/12/19at 12:32; Admin Dose 650 MG; Start 02/09/19 at 18:00 Aspirin (Halfprin) 81 mg DAILY PO Last administered on 02/13/19 08:52; Admin Dose 81 MG; Start 02/09/19 at 19:30 Labetalol HCl (Normodyne) 200 mg TID PO Last administered on 02/13/19 12:35; Admin Dose 200 MG; Start 02/09/19 at 21:00 Lisinopril (Zestril) 20 mg DAILY PO Last administered on 02/13/19 08:53; Admin Dose 20 MG; Start 02/09/19 at 19:30 Hydrochlorothiazide (Hydrochlorothiazide) 12.5 mg DAILY PO Last administered on 02/13/19 08:54; Admin Dose 12.5 MG; Start 02/09/19 at 19:30 Clonidine (Catapres) 0.1 mg Q4H PRN GTB sbp > 180 Last administered on 02/12/19 14:26; Admin Dose 0.1 MG; Start 02/09/19 at 19:30 Ondansetron HCl (Zofran Inj) 4 mg Q4H PRN IV NAUSEA AND/OR VOMITING Last administered on 02/09/19 22:26; Admin Dose 4 MG; Start 02/09/19 at 22:30 Polyethylene Glycol (Miralax) 17 gm DAILY PO Last administered on 02/11/19 09:19; Admin Dose 17 GM; Start 02/09/19 at 22:30 Atorvastatin Calcium (Lipitor) 40 mg QHS PO Last administered on 02/12/19 21:17; Admin Dose 40 MG; Start 02/10/19 at 21:00 Clopidogrel Bisulfate (plaVIX) 75 mg DAILY PO Last administered on 02/13/19 08:52; Admin Dose 75 MG; Start 02/12/19 at 09:00 Acetaminophen (Tylenol Tab) 650 mg Q4H PRN PO PAIN; Start 02/12/19 at 09:00 Oxycodone/ Acetaminophen (Percocet (5/ 325)) 1 tab Q4H PRN PO PAIN; Start 02/12/19 at 09:00 Oxycodone/ Acetaminophen (Percocet (5/ 325)) 2 tab Q4H PRN PO PAIN; Start 02/12/19 at 09:00 Morphine Sulfate (morphine) 1 mg Q1H PRN IV PAIN LEVEL 6-10; Start 5/16/19 at 09:00 Docusate Sodium (Colace) 100 mg BID PO ; Start 02/12/19 at 09:00 Assessment/Plan Hospital Course (Demo Recall) 1. Hypertensive urgency 2. Chest pain / ACS with abnormal CT erick angio: stable post PCI LCX 3. Coronary artery disease 4. History of prior coronary artery bypass graft 5. Dyslipidemia 6. History of CVA based on the head CT 7. Morbid obesity 8. Marked sinus bradycardia 9. thrombocytopenia Recommendation: CONT patient on lisinopril as well as hydrochlorothiazide. Continue with labetalol start of metoprolol given her bradycardia Echocardiogram shows EF 50% thyroid function tests were checked which was within normal limits CONT Aspirin Plavix CONT current dose of Lipitor to keep the LDL goal less than 70 Monitor on telemetry dc planning once ok with hematology Thank you for his referral. We will continue to follow along with you as needed over the weekend ACE FERNÁNDEZ MD [facility] ACE FERNÁNDEZ MD February 13, 2019 13:55
[2019-02-13] MEDS ORDERED: BARIUM SULF 2% 450 ML BTL (BERRY SMOOTHIE) PO ONE (14:30)
--- NOTE | 2019-02-13 15:13 | CONS ---
Assessment/Plan Assessment/Plan Hospital Course (Demo Recall) #Thrombocytopenia- chronic since 2011 # CAD - s/p recent PTCA on 02/12. on ASA and plavix #HTN - on aggressive BP control -I am concerned for underlying fatty liver or liver disease as the cause of her thrombocytopenia -will check Hepatitis panel and CT Abdomen -if all is negative and we are concerned about ITP, I will start ITP treatment as an out patient -for now patient can continue ASA plavix -agree with 1 units of platelet transfusion -continue BP control Consultation Date/Type/Reason Admit Date/Time February 09, 2019 at 15:32 Date of Consultation: February 13, 2019 Type of Consult hematology Reason for Consultation thrombocytopenia Requesting Provider: KAYLEY DOUGLASS NP Date/Time of Note DATE: 02/13/19 TIME: 15:03 Hx of Present Illness 78-year-old female with multiple medical problems including hypertension, hyperlipidemia, CAD status post coronary artery bypass grafting, and chronic thrombocytopenia who initially presented to ER on 02/09/19 with complaints of chest pain and headache .Pt has since undergone a cardiac CT showing clips extending towards OM territory suggesting an occluded graft. On 02/12 pt underwent successful PTCA stenting of the left circumflex artery from 99% stenosis to no significant residual stenosis using a 2.5 x 20 mm Synergy drug- eluting stent. Pt was thus initiated on dual antiplatelet therapy. since admission patient's platelets have been between 30-40. Today it dropped to 16. Pt is continuing on ASA and Plavix and has no signs of bleed. She is scheduled to get 1 unit of platelets. Upon further review of her labs, pt has chronic thrombocytopenia that dates back to at least 2011. Abd CT 2011 did not reveal evidence of liver disease. Constitutional: no complaints, poor po Eyes: no complaints ENT: no complaints Respiratory: no complaints Cardiovascular: no complaints Gastrointestinal: no complaints Genitourinary: no complaints Musculoskeletal: back pain, bone/joint pain Skin: no complaints Neurologic: no complaints Lymphatic: no complaints Psychological: no complaints, anxiety Past Medical History Medical History: coronary artery disease, high cholesterol, hypertension, other (Thrombocytopenia. Obesity.) Home Meds Reported Medications Metoprolol Succinate* (Toprol XL*) 50 Mg Tab.er.24h, 1 TAB ORAL DAILY 02/09/19 Atorvastatin Calcium* (Atorvastatin Calcium*) 20 Mg Tablet, 20 MG PO QHS, #30 TAB 02/09/19 Aspirin Delayed Release (Aspirin Delayed Release) 81 Mg Tablet.dr, 1 TAB ORAL DAILY 02/09/19 Discontinued Reported Medications Docusate Sodium* (Docusate Sodium*) 100 Mg Capsule, 100 MG PO DAILY 01/12/12 Losartan Potassium* (Cozaar*) 25 Mg Tablet, 25 MG PO DAILY 01/12/12 Nitroglycerin* (Nitrostat*) 0.4 Mg Tab.subl, 0.4 MG PO PRN 01/12/12 Calcium Carbonate* (Oysco-500*) 1 Tab Tablet, 1 TAB PO BID 01/12/12 Aspirin (Aspirin) 81 Mg Tablet, 1 TAB PO DAILY 01/12/12 Medications Current Medications IV Flush (NS 3 ml) 3 ml PER PROTOCOL IV ; Start 02/09/19 at 18:00 Acetaminophen (Tylenol Tab) 650 mg Q6H PRN PO .PAIN 1-3 OR TEMP Last administered on 02/12/19 12:32; Admin Dose 650 MG; Start 02/09/19 at 18:00 Aspirin (Halfprin) 81 mg DAILY PO Last administered on 02/13/19at 08:52; Admin Dose 81 MG; Start 02/09/19 at 19:30 Labetalol HCl (Normodyne) 200 mg TID PO Last administered on 02/13/19 12:35; Admin Dose 200 MG; Start 02/09/19 at 21:00 Lisinopril (Zestril) 20 mg DAILY PO Last administered on 02/13/19 08:53; Admin Dose 20 MG; Start 02/09/19 at 19:30 Hydrochlorothiazide (Hydrochlorothiazide) 12.5 mg DAILY PO Last administered on 02/13/19 08:54; Admin Dose 12.5 MG; Start 02/09/19 at 19:30 Clonidine (Catapres) 0.1 mg Q4H PRN GTB sbp > 180 Last administered on 02/12/19 14:26; Admin Dose 0.1 MG; Start 02/09/19 at 19:30 Ondansetron HCl (Zofran Inj) 4 mg Q4H PRN IV NAUSEA AND/OR VOMITING Last administered on 02/09/19 22:26; Admin Dose 4 MG; Start 02/09/19 at 22:30 Polyethylene Glycol (Miralax) 17 gm DAILY PO Last administered on 02/11/19at 09:19; Admin Dose 17 GM; Start 02/09/19 at 22:30 Atorvastatin Calcium (Lipitor) 40 mg QHS PO Last administered on 02/12/19at 21:17; Admin Dose 40 MG; Start 02/10/19 at 21:00 Clopidogrel Bisulfate (plaVIX) 75 mg DAILY PO Last administered on 02/13/19at 08:52; Admin Dose 75 MG; Start 02/12/19 at 09:00 Acetaminophen (Tylenol Tab) 650 mg Q4H PRN PO PAIN; Start 02/12/19 at 09:00 Oxycodone/ Acetaminophen (Percocet (5/ 325)) 1 tab Q4H PRN PO PAIN; Start 02/12/19 at 09:00 Oxycodone/ Acetaminophen (Percocet (5/ 325)) 2 tab Q4H PRN PO PAIN; Start 02/12/19 at 09:00 Morphine Sulfate (morphine) 1 mg Q1H PRN IV PAIN LEVEL 6-10; Start 02/12/19 at 09:00 Docusate Sodium (Colace) 100 mg BID PO ; Start 02/12/19 at 09:00 Allergies: Coded Allergies: Penicillins (Verified Allergy, Severe, 02/09/19) ibuprofen (Verified Allergy, Intermediate, rash and itching, 02/09/19) Past Surgical History Past Surgical Hx: cholecystectomy, coronary bypass surgery Social History Alcohol Use: none Smoking Status: Never smoker Drug Use: none Exam/Review of Systems Exam Vitals Vital Signs Date Temp Pulse Resp B/P (MAP) Pulse Ox O2 O2 Flow FiO2 Time Delivery Rate 02/13/19 59 12:10 02/13/19 98.1 18 154/69 96 11:29 (97) 02/13/19 Room Air 04:00 02/11/19 2.0 08:00 Intake and Output 02/12/19 02/12/19 02/13/19 1515:00 23:00 07:00 IntakeIntake Total 200 ml 240 ml BalanceBalance 200 ml 240 ml Constitutional: alert, oriented Psych: no complaints Head: normocephalic Eyes: nl conjunctiva ENMT: nl external ears & nose Neck: supple Respiratory: clear to auscultation Cardiovascular: regular rate and rhythm Gastrointestinal: soft Musculoskeletal: nl extremities to inspection Extremities: normal pulses Results Result Diagram: 02/13/19 0544 02/13/19 0544 Results 24hrs Laboratory Tests Test 02/13/19 05:44 White Blood Count 7.7 Red Blood Count 4.48 Hemoglobin 14.0 Hematocrit 40.7 Mean Corpuscular Volume 90.8 Mean Corpuscular Hemoglobin 31.3 Mean Corpuscular Hemoglobin Concent 34.4 Red Cell Distribution Width 13.0 Platelet Count 16 #*L Mean Platelet Volume 15.5 H Immature Granulocytes % 0.400 Neutrophils % 68.0 Lymphocytes % 16.9 Monocytes % 9.0 Eosinophils % 4.8 Basophils % 0.9 Nucleated Red Blood Cells % 0.0 Immature Granulocytes # 0.030 Neutrophils # 5.2 Lymphocytes # 1.3 Monocytes # 0.7 Eosinophils # 0.4 Basophils # 0.1 Nucleated Red Blood Cells # 0.0 Sodium Level 139 Potassium Level 4.2 Chloride Level 105 Carbon Dioxide Level 27 Anion Gap 7 Blood Urea Nitrogen 24 H Creatinine 1.01 H Est Glomerular Filtrat Rate mL/min Glucose Level 123 Calcium Level 9.5 Phosphorus Level 3.5 # Magnesium Level 2.0 Total Bilirubin 0.7 Direct Bilirubin 0.00 Indirect Bilirubin 0.7 Aspartate Amino Transf (AST/SGOT) 25 Alanine Aminotransferase (ALT/SGPT) 31 Alkaline Phosphatase 67 Total Protein 6.5 Albumin 3.6 Globulin 2.90 Albumin/Globulin Ratio 1.24 Medications Medication Current Medications IV Flush (NS 3 ml) 3 ml PER PROTOCOL IV ; Start 02/09/19 at 18:00 Acetaminophen (Tylenol Tab) 650 mg Q6H PRN PO .PAIN 1-3 OR TEMP Last administered on 02/12/19at 12:32; Admin Dose 650 MG; Start 02/09/19 at 18:00 Aspirin (Halfprin) 81 mg DAILY PO Last administered on 02/13/19at 08:52; Admin Dose 81 MG; Start 02/09/19 at 19:30 Labetalol HCl (Normodyne) 200 mg TID PO Last administered on 02/13/19at 12:35; Admin Dose 200 MG; Start 02/09/19 at 21:00 Lisinopril (Zestril) 20 mg DAILY PO Last administered on 02/13/19at 08:53; Admin Dose 20 MG; Start 02/09/19 at 19:30 Hydrochlorothiazide (Hydrochlorothiazide) 12.5 mg DAILY PO Last administered on 02/13/19 08:54; Admin Dose 12.5 MG; Start 02/09/19 at 19:30 Clonidine (Catapres) 0.1 mg Q4H PRN GTB sbp > 180 Last administered on 02/12/19 14:26; Admin Dose 0.1 MG; Start 02/09/19 at 19:30 Ondansetron HCl (Zofran Inj) 4 mg Q4H PRN IV NAUSEA AND/OR VOMITING Last administered on 02/09/19 22:26; Admin Dose 4 MG; Start 02/09/19 at 22:30 Polyethylene Glycol (Miralax) 17 gm DAILY PO Last administered on 02/11/19 09:19; Admin Dose 17 GM; Start 02/09/19 at 22:30 Atorvastatin Calcium (Lipitor) 40 mg QHS PO Last administered on 02/12/19at 21:17; Admin Dose 40 MG; Start 02/10/19 at 21:00 Clopidogrel Bisulfate (plaVIX) 75 mg DAILY PO Last administered on 02/13/19at 08:52; Admin Dose 75 MG; Start 02/12/19 at 09:00 Acetaminophen (Tylenol Tab) 650 mg Q4H PRN PO PAIN; Start 02/12/19 at 09:00 Oxycodone/ Acetaminophen (Percocet (5/ 325)) 1 tab Q4H PRN PO PAIN; Start 02/12/19 at 09:00 Oxycodone/ Acetaminophen (Percocet (5/ 325)) 2 tab Q4H PRN PO PAIN; Start 02/12/19 at 09:00 Morphine Sulfate (morphine) 1 mg Q1H PRN IV PAIN LEVEL 6-10; Start 02/12/19 at 09:00 Docusate Sodium (Colace) 100 mg BID PO ; Start 02/12/19 at 09:00 VALENTINA ROBERTSON M.D. February 13, 2019 15:13
[2019-02-13] MEDS ORDERED: IOHEXOL 300MG/ML 150 ML BTL ONE (20:19)
[2019-02-13] MEDS ORDERED: SOD CHLORIDE 0.9% 100 ML ONE (20:19)
[2019-02-13] MEDS: ATORVASTATIN 40 MG TAB PO SCH (21:05)
[2019-02-14] VITALS (12 sets, daily range): BP systolic 134–174; BP diastolic 63–79; PULSE 49–66; RESP 18–20
[2019-02-14] MEDS: LABETALOL 200 MG TAB PO SCH ×3 (09:00→20:22)
[2019-02-14] MEDS: POLYETHYLENE GLYCOL 17 GM PACKET PO SCH (09:00)
[2019-02-14] MEDS: DOCUSATE SODIUM 100 MG CAP PO SCH ×2 (09:00→20:21)
[2019-02-14] MEDS: HYDROCHLOROTHIAZIDE 12.5 MG CAP PO SCH (09:37)
[2019-02-14] MEDS: LISINOPRIL 20 MG TAB PO SCH (09:37)
[2019-02-14] MEDS ORDERED: SOD CHLORIDE 0.9% 250 ML IV* ONE (09:40)
[2019-02-14] MEDS: CLOPIDOGREL 75 MG TAB PO SCH (10:15)
[2019-02-14] MEDS: ASPIRIN (EC) 81 MG TAB PO SCH (10:16)
--- NOTE | 2019-02-14 10:41 | PN ---
Date/Time of Note Date/Time of Note DATE: 02/14/19 TIME: 10:40 Assessment/Plan VTE Prophylaxis Risk score (from Ns)>0 risk: 5 SCD applied (from [facility] [place]): Yes Pharmacological prophylaxis: NA/contraindicated Pharm contraindication: thrombocytopenia Lines/Catheters IV [facility]from [facility] Saline Lock Urinary Cath still in place: No Assessment/Plan Hospital Course SUBJECTIVE: Blood pressure better controlled. Denies any headache at this time. OBJECTIVE: Physical Exam General: Obese 78 year-old female lying in bed in no apparent distress. HEENT: Normocephalic, atraumatic. Eyes: Anicteric sclerae, conjunctivae clear. ENT: Nasal septum midline, oral mucosa moist. Neck supple, no JVD noticed. Respiratory: Bilaterally diminished breath sounds. No use of accessory muscles of respiration. No adventitious breath sounds. Cardiovascular: S1, S2 heard. Regular rate and rhythm. Abdomen: Soft, nontender, and nondistended. Bowel sounds positive in all 4 quadrants. Genitourinary: Deferred. Extremities: No cyanosis, no clubbing, no edema. Peripheral pulses palpable. Neurologic: The patient is awake, alert, and oriented. Skin: Normal skin turgor. No skin rashes. Labs & Vitals per chart ASSESSMENT & PLAN 78-year-old female with comorbidities including hypertension, dyslipidemia, CAD status post coronary artery bypass grafting, obesity, and thrombocytopenia who came to the emergency room with chief complaint of occipital headache and chest pain, who was found to have evidence of underlying hypertensive emergency and was admitted to inpatient setting for further treatment and evaluation. 1. Hypertensive urgency. -Etiology unclear. -Blood pressure well controlled. -Cardiology following. 2. Chest pain. -Cardiac CT showing clips extending towards OM territory suggesting an occluded graft. -S/P successful PTCA stenting of the left circumflex artery from 99% stenosis to no significant residual stenosis using a 2.5 x 20 mm Synergy drug-eluting stent. -Initiated on dual antiplatelet therapy. 3. CAD. Status post CABG. -Continue statins and antiplatelet therapy. 4. Dyslipidemia. -Resume statins. 5. ONEIDA. -Most probably contrast induced. -Avoid nephrotoxic medications. 6. Thrombocytopenia. -Etiology unclear. -LFTs within normal limits. -Monitor for any bleeding. -Hematology consult appreciated. 7. Obesity. -BMI more than 32 kg/m. -Advised weight reduction. -Hemoglobin A1c of 6.0, indicating prediabetes. 8. Fluids, electrolytes, and nutrition. -Low-cholesterol diet. 9. DVT prophylaxis. -Bilateral SCDs. -Chemical DVT prophylaxis contraindicated because of underlying thrombocytopen ia. 10. Plan. -Continue blood pressure control. -Transfuse platelets because of worsening thrombocytopenia. -Monitor for any bleeding. -Await clearance from consultants before discharging the patient home. The patient was seen in collaboration with Dr. Villagomez. Result Diagram: 02/14/19 0737 02/14/19 0737 Results 24hrs Laboratory Tests Test 02/14/19 07:37 White Blood Count 6.5 Red Blood Count 4.29 Hemoglobin 13.2 Hematocrit 38.7 Mean Corpuscular Volume 90.2 Mean Corpuscular Hemoglobin 30.8 Mean Corpuscular Hemoglobin Concent 34.1 Red Cell Distribution Width 12.8 Platelet Count 9 #*L Mean Platelet Volume 15.3 H Immature Granulocytes % 0.200 Neutrophils % 51.4 Lymphocytes % 29.1 Monocytes % 10.6 Eosinophils % 7.3 H Basophils % 1.4 Nucleated Red Blood Cells % 0.0 Immature Granulocytes # 0.010 Neutrophils # 3.4 Lymphocytes # 1.9 Monocytes # 0.7 Eosinophils # 0.5 Basophils # 0.1 Nucleated Red Blood Cells # 0.0 Prothrombin Time 13.9 Prothrombin Time Ratio 1.1 INR International Normalized Ratio 1.06 Activated Partial Thromboplast Time 29.6 Sodium Level 139 Potassium Level 4.0 Chloride Level 104 Carbon Dioxide Level 26 Anion Gap 9 Blood Urea Nitrogen 17 Creatinine 0.85 Est Glomerular Filtrat Rate mL/min Glucose Level 105 Calcium Level 9.1 Phosphorus Level 3.9 Magnesium Level 2.0 Total Bilirubin 0.8 Direct Bilirubin 0.00 Indirect Bilirubin 0.8 Aspartate Amino Transf (AST/SGOT) 32 Alanine Aminotransferase (ALT/SGPT) 31 Alkaline Phosphatase 75 Total Protein 6.7 Albumin 3.6 Globulin 3.10 Albumin/Globulin Ratio 1.16 Exam/Review of Systems Exam Vitals Vital Signs Date Temp Pulse Resp B/P (MAP) Pulse Ox O2 O2 Flow FiO2 Time Delivery Rate 02/14/19 54 08:06 02/14/19 98.3 18 157/71 97 Room Air 07:39 (99) 02/11/19 2.0 08:00 Intake and Output 502/13/19 02/14/19 1515:00 23:00 07:00 IntakeIntake Total 1970 ml 600 ml BalanceBalance 1970 ml 600 ml Results Results 24hrs Laboratory Tests Test 02/14/19 07:37 White Blood Count 6.5 Red Blood Count 4.29 Hemoglobin 13.2 Hematocrit 38.7 Mean Corpuscular Volume 90.2 Mean Corpuscular Hemoglobin 30.8 Mean Corpuscular Hemoglobin Concent 34.1 Red Cell Distribution Width 12.8 Platelet Count 9 #*L Mean Platelet Volume 15.3 H Immature Granulocytes % 0.200 Neutrophils % 51.4 Lymphocytes % 29.1 Monocytes % 10.6 Eosinophils % 7.3 H Basophils % 1.4 Nucleated Red Blood Cells % 0.0 Immature Granulocytes # 0.010 Neutrophils # 3.4 Lymphocytes # 1.9 Monocytes # 0.7 Eosinophils # 0.5 Basophils # 0.1 Nucleated Red Blood Cells # 0.0 Prothrombin Time 13.9 Prothrombin Time Ratio 1.1 INR International Normalized Ratio 1.06 Activated Partial Thromboplast Time 29.6 Sodium Level 139 Potassium Level 4.0 Chloride Level 104 Carbon Dioxide Level 26 Anion Gap 9 Blood Urea Nitrogen 17 Creatinine 0.85 Est Glomerular Filtrat Rate mL/min Glucose Level 105 Calcium Level 9.1 Phosphorus Level 3.9 Magnesium Level 2.0 Total Bilirubin 0.8 Direct Bilirubin 0.00 Indirect Bilirubin 0.8 Aspartate Amino Transf (AST/SGOT) 32 Alanine Aminotransferase (ALT/SGPT) 31 Alkaline Phosphatase 75 Total Protein 6.7 Albumin 3.6 Globulin 3.10 Albumin/Globulin Ratio 1.16 Medications Medication Current Medications IV Flush (NS 3 ml) 3 ml PER PROTOCOL IV ; Start 02/09/19 at 18:00 Acetaminophen (Tylenol Tab) 650 mg Q6H PRN PO .PAIN 1-3 OR TEMP Last administered on 02/12/19at 12:32; Admin Dose 650 MG; Start 02/09/19 at 18:00 Aspirin (Halfprin) 81 mg DAILY PO Last administered on 02/14/19at 10:16; Admin Dose 81 MG; Start 02/09/19 at 19:30 Labetalol HCl (Normodyne) 200 mg TID PO Last administered on 02/13/19at 21:06; Admin Dose 200 MG; Start 02/09/19 at 21:00 Lisinopril (Zestril) 20 mg DAILY PO Last administered on 02/14/19 09:37; Admin Dose 20 MG; Start 02/09/19 at 19:30 Hydrochlorothiazide (Hydrochlorothiazide) 12.5 mg DAILY PO Last administered on 02/14/19 09:37; Admin Dose 12.5 MG; Start 02/09/19 at 19:30 Clonidine (Catapres) 0.1 mg Q4H PRN GTB sbp > 180 Last administered on 02/13/19 17:18; Admin Dose 0.1 MG; Start 02/09/19 at 19:30 Ondansetron HCl (Zofran Inj) 4 mg Q4H PRN IV NAUSEA AND/OR VOMITING Last administered on 02/09/19 22:26; Admin Dose 4 MG; Start 02/09/19 at 22:30 Polyethylene Glycol (Miralax) 17 gm DAILY PO Last administered on 02/11/19 09:19; Admin Dose 17 GM; Start 02/09/19 at 22:30 Atorvastatin Calcium (Lipitor) 40 mg QHS PO Last administered on 02/13/19 21:05; Admin Dose 40 MG; Start 02/10/19 at 21:00 Clopidogrel Bisulfate (plaVIX) 75 mg DAILY PO Last administered on 02/14/19 10:15; Admin Dose 75 MG; Start 02/12/19 at 09:00 Acetaminophen (Tylenol Tab) 650 mg Q4H PRN PO PAIN; Start 02/12/19 at 09:00 Oxycodone/ Acetaminophen (Percocet (5/ 325)) 1 tab Q4H PRN PO PAIN Last administered on 02/13/19 18:04; Admin Dose 1 TAB; Start 02/12/19 at 09:00 Oxycodone/ Acetaminophen (Percocet (5/ 325)) 2 tab Q4H PRN PO PAIN; Start at 09:00 Morphine Sulfate (morphine) 1 mg Q1H PRN IV PAIN LEVEL 6-10; Start 02/12/19 at 09:00 Docusate Sodium (Colace) 100 mg BID PO Last administered on 02/13/19 21:05; Admin Dose 100 MG; Start 02/12/19 at 09:00 KAYLEY DOUGLASS NP February 14, 2019 10:41
[2019-02-14] MEDS ORDERED: IMMUNE GLOBULIN (HUMAN) 6 GM INJ IV SCH (14:00)
[2019-02-14] MEDS ORDERED: DEXAMETHASONE 10 MG/ML 1 ML INJ IV SCH (18:30)
[2019-02-14] MEDS ORDERED: IMMUNE GLOBULIN IV SCH (18:30)
[2019-02-14] MEDS ORDERED: DEXAMETHASONE IVPB SCH (19:30)
[2019-02-14] MEDS ORDERED: SOD CHLORIDE 0.9% IVPB SCH (19:30)
[2019-02-14] MEDS: ATORVASTATIN 40 MG TAB PO SCH (20:21)
[2019-02-14] MEDS: ONDANSETRON 4 MG INJ IV PRN (21:47)
[2019-02-15] VITALS (10 sets, daily range): BP systolic 137–187; BP diastolic 69–80; PULSE 53–67; RESP 18–22
[2019-02-15] MEDS: LISINOPRIL 20 MG TAB PO SCH (08:25)
[2019-02-15] MEDS: HYDROCHLOROTHIAZIDE 12.5 MG CAP PO SCH (08:26)
[2019-02-15] MEDS: POLYETHYLENE GLYCOL 17 GM PACKET PO SCH (08:26)
[2019-02-15] MEDS: LABETALOL 200 MG TAB PO SCH ×3 (08:26→20:37)
[2019-02-15] MEDS: ASPIRIN (EC) 81 MG TAB PO SCH (08:26)
[2019-02-15] MEDS: CLOPIDOGREL 75 MG TAB PO SCH (08:26)
[2019-02-15] MEDS: DOCUSATE SODIUM 100 MG CAP PO SCH ×2 (08:27→20:37)
--- NOTE | 2019-02-15 10:32 | PN ---
Date/Time of Note Date/Time of Note DATE: 02/15/19 TIME: 10:31 Assessment/Plan VTE Prophylaxis Risk score (from [facility] [place]0 risk: 4 SCD applied (from [facility] [place]): Yes Pharmacological prophylaxis: NA/contraindicated Pharm contraindication: thrombocytopenia Lines/Catheters IV Catheter Type (from [facility] Saline Lock Urinary Cath still in place: No Assessment/Plan Hospital Course SUBJECTIVE: Denies any headache at this time. OBJECTIVE: Physical Exam General: Obese 78 year-old female lying in bed in no apparent distress. HEENT: Normocephalic, atraumatic. Eyes: Anicteric sclerae, conjunctivae clear. ENT: Nasal septum midline, oral mucosa moist. Neck supple, no JVD noticed. Respiratory: Bilaterally diminished breath sounds. No use of accessory muscles of respiration. No adventitious breath sounds. Cardiovascular: S1, S2 heard. Regular rate and rhythm. Abdomen: Soft, nontender, and nondistended. Bowel sounds positive in all 4 quadrants. Genitourinary: Deferred. Extremities: No cyanosis, no clubbing, no edema. Peripheral pulses palpable. Neurologic: The patient is awake, alert, and oriented. Skin: Normal skin turgor. No skin rashes. Labs & Vitals per chart ASSESSMENT & PLAN 78-year-old female with comorbidities including hypertension, dyslipidemia, CAD status post coronary artery bypass grafting, obesity, and thrombocytopenia who came to the emergency room with chief complaint of occipital headache and chest pain, who was found to have evidence of underlying hypertensive emergency and was admitted to inpatient setting for further treatment and evaluation. 1. S/P hypertensive urgency. -Etiology unclear. -Blood pressure well controlled. -Cardiology following. 2. Chest pain. -Cardiac CT showing clips extending towards OM territory suggesting an occluded graft. -S/P successful PTCA stenting of the left circumflex artery from 99% stenosis to no significant residual stenosis using a 2.5 x 20 mm Synergy drug-eluting stent. -Initiated on dual antiplatelet therapy. 3. CAD. Status post CABG. -Continue statins and antiplatelet therapy. 4. Dyslipidemia. -Resume statins. 5. ONEIDA. -Most probably contrast induced. -Avoid nephrotoxic medications. 6. Thrombocytopenia. -Etiology unclear. -LFTs within normal limits. -Monitor for any bleeding. -Hematology consult appreciated. -S/P 3 units of platelet transfusion. -The patient was started on Decadron and received 1 dose of IVIG. 7. Obesity. -BMI more than 32 kg/m. -Advised weight reduction. -Hemoglobin A1c of 6.0, indicating prediabetes. 8. Fluids, electrolytes, and nutrition. -Low-cholesterol diet. 9. DVT prophylaxis. -Bilateral SCDs. -Chemical DVT prophylaxis contraindicated because of underlying thrombocytopenia. 10. Plan. -Continue blood pressure control. -Continue Decadron as per hematology. -Monitor for any bleeding. -Await clearance from consultants before discharging the patient home. The patient was seen in collaboration with Dr. Villagomez. Result Diagram: 02/15/1961102/15/19 06 Results 24hrs Laboratory Tests Test 02/15/19 06:12 White Blood Count 6.3 Red Blood Count 4.58 Hemoglobin 14.2 Hematocrit 41.1 Mean Corpuscular Volume 89.7 Mean Corpuscular Hemoglobin 31.0 Mean Corpuscular Hemoglobin Concent 34.5 Red Cell Distribution Width 12.2 Platelet Count 26 #*L Mean Platelet Volume 13.9 H Immature Granulocytes % 0.300 Neutrophils % Segmented Neutrophils % (Manual) 80 H Lymphocytes % Lymphocytes % (Manual) 16 Reactive Lymphocytes % (Manual) 3 H Monocytes % Eosinophils % Basophils % Plasma Cells % (manual) 1 Nucleated Red Blood Cells % 0.0 Immature Granulocytes # 0.020 Neutrophils # Lymphocytes (Manual) 1.0 Lymphocytes # Reactive Lymphocytes # 0.1 H Monocytes # Eosinophils # Basophils # Plasma Cells # (manual) 0.0 Nucleated Red Blood Cells # Platelet Estimate SIG DECREASED Sodium Level 137 Potassium Level 4.9 Chloride Level 101 Carbon Dioxide Level 29 Anion Gap 7 Blood Urea Nitrogen 24 H Creatinine 1.04 H Est Glomerular Filtrat Rate mL/min Glucose Level 207 # Calcium Level 9.7 Phosphorus Level 4.2 Magnesium Level 2.0 Exam/Review of Systems Exam Vitals Vital Signs Date Temp Pulse Resp B/P (MAP) Pulse Ox O2 O2 Flow FiO2 Time Delivery Rate 02/15/19 54 08:00 02/15/19 98.0 18 145/73 98 07:22 (97) 02/14/19 Room Air 15:50 02/11/19 2.0 08:00 Intake and Output 02/14/19 02/14/19 02/15/19 1515:00 23:00 07:00 IntakeIntake Total 1487 ml 500 ml BalanceBalance 1487 ml 500 ml Results Results 24hrs Laboratory Tests Test 02/15/19 06:12 White Blood Count 6.3 Red Blood Count 4.58 Hemoglobin 14.2 Hematocrit 41.1 Mean Corpuscular Volume 89.7 Mean Corpuscular Hemoglobin 31.0 Mean Corpuscular Hemoglobin Concent 34.5 Red Cell Distribution Width 12.2 Platelet Count 26 #*L Mean Platelet Volume 13.9 H Immature Granulocytes % 0.300 Neutrophils % Segmented Neutrophils % (Manual) 80 H Lymphocytes % Lymphocytes % (Manual) 16 Reactive Lymphocytes % (Manual) 3 H Monocytes % Eosinophils % Basophils % Plasma Cells % (manual) 1 Nucleated Red Blood Cells % 0.0 Immature Granulocytes # 0.020 Neutrophils # Lymphocytes (Manual) 1.0 Lymphocytes # Reactive Lymphocytes # 0.1 H Monocytes # Eosinophils # Basophils # Plasma Cells # (manual) 0.0 Nucleated Red Blood Cells # Platelet Estimate SIG DECREASED Sodium Level 137 Potassium Level 4.9 Chloride Level 101 Carbon Dioxide Level 29 Anion Gap 7 Blood Urea Nitrogen 24 H Creatinine 1.04 H Est Glomerular Filtrat Rate mL/min Glucose Level 207 # Calcium Level 9.7 Phosphorus Level 4.2 Magnesium Level 2.0 Medications Medication Current Medications IV Flush (NS 3 ml) 3 ml PER PROTOCOL IV ; Start 02/09/19 at 18:00 Acetaminophen (Tylenol Tab) 650 mg Q6H PRN PO .PAIN 1-3 OR TEMP Last administered on 02/12/19at 12:32; Admin Dose 650 MG; Start 02/09/19 at 18:00 Aspirin (Halfprin) 81 mg DAILY PO Last administered on 02/15/19 08:26; Admin Dose 81 MG; Start 02/09/19 at 19:30 Labetalol HCl (Normodyne) 200 mg TID PO Last administered on 02/15/19 08:26; Admin Dose 200 MG; Start 02/09/19 at 21:00 Lisinopril (Zestril) 20 mg DAILY PO Last administered on 02/15/19 08:25; Admin Dose 20 MG; Start 02/09/19 at 19:30 Hydrochlorothiazide (Hydrochlorothiazide) 12.5 mg DAILY PO Last administered on 02/15/19 08:26; Admin Dose 12.5 MG; Start 02/09/19 at 19:30 Clonidine (Catapres) 0.1 mg Q4H PRN GTB sbp > 180 Last administered on 02/15/19 04:27; Admin Dose 0.1 MG; Start 02/09/19 at 19:30 Ondansetron HCl (Zofran Inj) 4 mg Q4H PRN IV NAUSEA AND/OR VOMITING Last administered on 02/14/19 21:47; Admin Dose 4 MG; Start 02/09/19 at 22:30 Polyethylene Glycol (Miralax) 17 gm DAILY PO Last administered on 02/11/19 09:19; Admin Dose 17 GM; Start 02/09/19 at 22:30 Atorvastatin Calcium (Lipitor) 40 mg QHS PO Last administered on 02/14/19 20:21; Admin Dose 40 MG; Start 02/10/19 at 21:00 Clopidogrel Bisulfate (plaVIX) 75 mg DAILY PO Last administered on 02/15/19 08:26; Admin Dose 75 MG; Start 02/12/19 at 09:00 Acetaminophen (Tylenol Tab) 650 mg Q4H PRN PO PAIN; Start 02/12/19 at 09:00 Oxycodone/ Acetaminophen (Percocet (5/ 325)) 1 tab Q4H PRN PO PAIN Last administered on 02/13/19 18:04; Admin Dose 1 TAB; Start 02/12/19 at 09:00 Oxycodone/ Acetaminophen (Percocet (5/ 325)) 2 tab Q4H PRN PO PAIN; Start 02/12/19 at 09:00 Morphine Sulfate (morphine) 1 mg Q1H PRN IV PAIN LEVEL 6-10; Start 02/12/19 at 09:00 Docusate Sodium (Colace) 100 mg BID PO Last administered on 02/13/19at 21:05; Admin Dose 100 MG; Start 02/12/19 at 09:00 Dexamethasone 40 mg/Sodium Chloride 60 ml @ 120 mls/hr Q24H IVPB Last administered on 02/14/19 20:19; Admin Dose 120 MLS/HR; Start 02/14/19 at 19:30; Stop 02/17/19 at 19:59 Polyethyl Glycol/ Propylene Glycol (Systane 0.3-0.4% Eye Drops) 1 drop Q6H BOTH EYES ; Start 02/15/19 at 10:00 KAYLEY DOUGLASS NP February 15, 2019 10:32
[2019-02-15] MEDS: PROPYLENE GLYCOL/PEG 5 ML OPHTH DROPS BOTH EYES SCH ×4 (11:06→23:56)
[2019-02-15] MEDS ORDERED: IMMUN GLOB 10% IV SCH ×2 (18:30→21:00)
--- NOTE | 2019-02-15 19:01 | CONS ---
Assessment/Plan Assessment/Plan Assessment/Plan (Daily) #Thrombocytopenia- chronic since 2011; platelet count 26 today # CAD - s/p recent PTCA on 02/12. on ASA and plavix #HTN - on aggressive BP control # ONEIDA- BUN/Cr 24.04 - management per primary - Concern for underlying fatty liver or liver disease as the cause of her thrombocytopenia - will check Hepatitis panel- PENDING - CT Abdomen IMPRESSION: - Trace bilateral pleural effusions, potentially on a cardiogenic basis. - Mild biliary ductal dilatation, which may reflect postcholecystectomy state. This could be correlated with LFTs of priors, to guide further imaging follow-up such as MRCP. - Otherwise, no acute intra-abdominal abnormality or evidence of hepatosplenomegaly. - Indeterminate noncalcified lower lobe lung nodule bilaterally measuring up to 6 mm on the left. - Guidelines for Management of Small Pulmonary Nodules Detected on CT Scans: A statement from the Fleischner [employer] - Multiple Solid Nodules: Use most susp nod to guide mgmt. F/u intervals may vary according to size/risk <6mm(<100mm3): Low risk: No f/u. High risk: Optional CT at 12 months. 6-8mm(100-250mm3): Low risk: CT at 3-[address] at 18-24 mos.. High risk: CT at 3-[address] at 18-24 mos. - continue ASA plavix - cont Dexamethasone - patient needs IV IG x 2 doses. - 02/14/19- SP # 1 dose of IV IG 30 gm ( per pharmacy ) - 02/15/19- # 2 dose of IV IG 30 gm - sp 1 units of platelet transfusion -continue BP control Patient seen in collaboration with Dr Bull . dw staff Consultation Date/Type/Reason Admit Date/Time February 09, 2019 at 15:32 Initial Consult Date 02/13/19 Type of Consult Oncology/Hematology Reason for Consultation Thrombocytopenia Requesting Provider: KAYLEY DOUGLASS NP Date/Time of Note DATE: 02/15/19 TIME: 12:35 24 HR Interval Summary Free Text/Dictation - continue ASA plavix - cont Dexamethasone - patient needs IV IG x 2 doses. - 02/14/19- SP # 1 dose of IV IG 30 gm ( per pharmacy ) - 02/15/19- # 2 dose of IV IG 30 gm - sp 1 units of platelet transfusion Patient has c/o nausea last night when getting # 1 dose of IV IG- resolved now dw staff Constitutional: requiring IVF Detailed Summary Eyes: no complaints ENT: no complaints Respiratory: no complaints Cardiovascular: no complaints Gastrointestinal: no complaints Genitourinary: no complaints Musculoskeletal: no complaints Skin: no complaints Neurologic: no complaints Endocrine: no complaints Psychological: nl mood/affect Immunologic: no complaints Exam/Review of Systems Exam Vitals Vital Signs Date Temp Pulse Resp B/P (MAP) Pulse Ox O2 O2 Flow FiO2 Time Delivery Rate 02/15/19 60 12:00 02/15/19 98.0 18 137/72 98 11:39 (93) 02/14/19 Room Air 15:50 02/11/19 2.0 08:00 Intake and Output 02/14/19 02/14/19 02/15/19 1515:00 23:00 07:00 IntakeIntake Total 1487 ml 500 ml BalanceBalance 1487 ml 500 ml Constitutional: alert, well developed Psych: nl mood/affect Head: atraumatic Eyes: nl lids, nl sclera ENMT: nl external ears & nose Neck: non-tender Respiratory: clear to auscultation Cardiovascular: nl pulses, other (s1s2) Gastrointestinal: soft, non-tender Musculoskeletal: nl extremities to inspection Extremities: normal pulses Neurological: nl speech, other (alert/responsive) Skin: nl turgor Lymph: nontender Results Result Diagram: 02/15/1912 02/15/19 0612 Results 24hrs Laboratory Tests Test 02/15/19 06:12 White Blood Count 6.3 Red Blood Count 4.58 Hemoglobin 14.2 Hematocrit 41.1 Mean Corpuscular Volume 89.7 Mean Corpuscular Hemoglobin 31.0 Mean Corpuscular Hemoglobin Concent 34.5 Red Cell Distribution Width 12.2 Platelet Count 26 #*L Mean Platelet Volume 13.9 H Immature Granulocytes % 0.300 Neutrophils % Segmented Neutrophils % (Manual) 80 H Lymphocytes % Lymphocytes % (Manual) 16 Reactive Lymphocytes % (Manual) 3 H Monocytes % Eosinophils % Basophils % Plasma Cells % (manual) 1 Nucleated Red Blood Cells % 0.0 Immature Granulocytes # 0.020 Neutrophils # Lymphocytes (Manual) 1.0 Lymphocytes # Reactive Lymphocytes # 0.1 H Monocytes # Eosinophils # Basophils # Plasma Cells # (manual) 0.0 Nucleated Red Blood Cells # Platelet Estimate SIG DECREASED Sodium Level 137 Potassium Level 4.9 Chloride Level 101 Carbon Dioxide Level 29 Anion Gap 7 Blood Urea Nitrogen 24 H Creatinine 1.04 H Est Glomerular Filtrat Rate mL/min Glucose Level 207 # Calcium Level 9.7 Phosphorus Level 4.2 Magnesium Level 2.0 Medications Medication Current Medications IV Flush (NS 3 ml) 3 ml PER PROTOCOL IV ; Start 02/09/19 at 18:00 Acetaminophen (Tylenol Tab) 650 mg Q6H PRN PO .PAIN 1-3 OR TEMP Last administered on 02/12/19 12:32; Admin Dose 650 MG; Start 02/09/19 at 18:00 Aspirin (Halfprin) 81 mg DAILY PO Last administered on 02/15/19 08:26; Admin Dose 81 MG; Start 02/09/19 at 19:30 Labetalol HCl (Normodyne) 200 mg TID PO Last administered on 02/15/19 08:26; Admin Dose 200 MG; Start 02/09/19 at 21:00 Lisinopril (Zestril) 20 mg DAILY PO Last administered on 02/15/19 08:25; Admin Dose 20 MG; Start 02/09/19 at 19:30 Hydrochlorothiazide (Hydrochlorothiazide) 12.5 mg DAILY PO Last administered on 02/15/19 08:26; Admin Dose 12.5 MG; Start 02/09/19 at 19:30 Clonidine (Catapres) 0.1 mg Q4H PRN GTB sbp > 180 Last administered on 02/15/19 04:27; Admin Dose 0.1 MG; Start 02/09/19 at 19:30 Ondansetron HCl (Zofran Inj) 4 mg Q4H PRN IV NAUSEA AND/OR VOMITING Last administered on 02/14/19 21:47; Admin Dose 4 MG; Start 02/09/19 at 22:30 Polyethylene Glycol (Miralax) 17 gm DAILY PO Last administered on 02/11/19 09:19; Admin Dose 17 GM; Start 02/09/19 at 22:30 Atorvastatin Calcium (Lipitor) 40 mg QHS PO Last administered on 02/14/19 20:21; Admin Dose 40 MG; Start 02/10/19 at 21:00 Clopidogrel Bisulfate (plaVIX) 75 mg DAILY PO Last administered on 02/15/19 08:26; Admin Dose 75 MG; Start 02/12/19 at 09:00 Acetaminophen (Tylenol Tab) 650 mg Q4H PRN PO PAIN; Start 02/12/19 at 09:00 Oxycodone/ Acetaminophen (Percocet (5/ 325)) 1 tab Q4H PRN PO PAIN Last administered on 02/13/19at 18:04; Admin Dose 1 TAB; Start 02/12/19 at 09:00 Oxycodone/ Acetaminophen (Percocet (5/ 325)) 2 tab Q4H PRN PO PAIN; Start 02/12/19 at 09:00 Morphine Sulfate (morphine) 1 mg Q1H PRN IV PAIN LEVEL 6-10; Start 02/12/19 at 09:00 Docusate Sodium (Colace) 100 mg BID PO Last administered on 02/13/19at 21:05; Admin Dose 100 MG; Start 02/12/19 at 09:00 Dexamethasone 40 mg/Sodium Chloride 60 ml @ 120 mls/hr Q24H IVPB Last administered on 02/14/19at 20:19; Admin Dose 120 MLS/HR; Start 02/14/19 at 19:30; Stop 02/17/19 at 19:59 Polyethyl Glycol/ Propylene Glycol (Systane 0.3-0.4% Eye Drops) 1 drop Q6H BOTH EYES Last administered on 02/15/19 11:06; Admin Dose 1 DROP; Start 02/15/19 at 10:00 INES SIM February 15, 2019 12:45
[2019-02-15] MEDS: ATORVASTATIN 40 MG TAB PO SCH (20:36)
[2019-02-15] MEDS: SOD CHLORIDE 0.9% IVPB SCH (20:38)
[2019-02-15] MEDS: DEXAMETHASONE IVPB SCH (20:38)
[2019-02-15] MEDS ORDERED: IMMUNE GLOBULIN (HUMAN) 6 GM INJ IVPB ONE (23:00)
[2019-02-16] VITALS (10 sets, daily range): BP systolic 165–180; BP diastolic 67–87; PULSE 48–62; RESP 18–20
[2019-02-16] MEDS: PROPYLENE GLYCOL/PEG 5 ML OPHTH DROPS BOTH EYES SCH ×4 (06:11→23:06)
[2019-02-16] MEDS: DOCUSATE SODIUM 100 MG CAP PO SCH ×2 (08:17→20:54)
[2019-02-16] MEDS: ASPIRIN (EC) 81 MG TAB PO SCH (08:17)
[2019-02-16] MEDS: CLOPIDOGREL 75 MG TAB PO SCH (08:17)
[2019-02-16] MEDS: LABETALOL 200 MG TAB PO SCH ×3 (08:17→20:55)
[2019-02-16] MEDS: HYDROCHLOROTHIAZIDE 12.5 MG CAP PO SCH (08:18)
[2019-02-16] MEDS: POLYETHYLENE GLYCOL 17 GM PACKET PO SCH (08:18)
[2019-02-16] MEDS: LISINOPRIL 20 MG TAB PO SCH ×2 (08:18→20:56)
--- NOTE | 2019-02-16 10:43 | CONS ---
Assessment/Plan Assessment/Plan Hospital Course (Demo Recall) #Thrombocytopenia- chronic since 2011. 11/01 to ITP -continue Decadron 40mg IV for 4 days total and then will start prednisone taper -start bactrim SS MWF -s/p 2 days of IVIG # CAD - s/p recent PTCA on 02/12. -cont ASA and plavix #HTN - on aggressive BP control Thank you for the opportunity to participate in this patients care A total of 40 minutes of face to face time was spent speaking with the patient, of which greater than 50% was spent in counseling and coordination of care and the detailed question and answer session. Consultation Date/Type/Reason Admit Date/Time February 09, 2019 at 15:32 Initial Consult Date 02/13/19 Type of Consult hematology Reason for Consultation thrombocytopenia Requesting Provider: KAYLEY DOUGLASS NP Date/Time of Note DATE: 02/16/19 TIME: 10:37 24 HR Interval Summary Free Text/Dictation pt continues on IV decadron. pt received 2 doses of IVIG over the weekend on sat and saturday Exam/Review of Systems Exam Vitals Vital Signs Date Temp Pulse Resp B/P (MAP) Pulse Ox O2 O2 Flow FiO2 Time Delivery Rate 02/16/19 55 08:01 02/16/19 97.6 20 168/76 93 07:37 (106) 02/14/19 Room Air 15:50 Intake and Output 02/15/19 02/15/19 02/16/19 1515:00 23:00 07:00 IntakeIntake Total 800 ml BalanceBalance 800 ml Constitutional: alert, oriented Psych: no complaints Head: normocephalic Eyes: nl conjunctiva ENMT: nl external ears & nose Neck: supple Respiratory: clear to auscultation Cardiovascular: regular rate and rhythm Gastrointestinal: soft Musculoskeletal: nl extremities to inspection Results Result Diagram: 02/16/19 0524 02/16/19 0524 Results 24hrs Laboratory Tests Test 02/16/19 05:24 02/16/19 07:25 White Blood Count 14.3 #H Red Blood Count 4.18 L Hemoglobin 12.9 Hematocrit 37.1 Mean Corpuscular Volume 88.8 Mean Corpuscular Hemoglobin 30.9 Mean Corpuscular Hemoglobin Concent 34.8 Red Cell Distribution Width 12.1 Platelet Count 49 #L Mean Platelet Volume 14.1 H Immature Granulocytes % 0.500 H Neutrophils % 90.7 H Lymphocytes % 7.8 L Monocytes % 0.9 Eosinophils % 0.0 Basophils % 0.1 Nucleated Red Blood Cells % 0.0 Immature Granulocytes # 0.070 H Neutrophils # 13.0 H Lymphocytes # 1.1 Monocytes # 0.1 L Eosinophils # 0.0 Basophils # 0.0 Nucleated Red Blood Cells # 0.0 Sodium Level 136 Potassium Level 4.1 Chloride Level 102 Carbon Dioxide Level 23 Anion Gap 11 Blood Urea Nitrogen 30 H Creatinine 0.87 Est Glomerular Filtrat Rate mL/min Glucose Level 220 Calcium Level 9.4 Phosphorus Level 4.4 Magnesium Level 2.0 Lab Scanned Report BLOOD TRANSFUSION Medications Medication Current Medications IV Flush (NS 3 ml) 3 ml PER PROTOCOL IV ; Start 02/09/19 at 18:00 Acetaminophen (Tylenol Tab) 650 mg Q6H PRN PO .PAIN 1-3 OR TEMP Last administ ered on 02/12/19 12:32; Admin Dose 650 MG; Start 02/09/19 at 18:00 Aspirin (Halfprin) 81 mg DAILY PO Last administered on 02/16/19 08:17; Admin Dose 81 MG; Start 02/09/19 at 19:30 Labetalol HCl (Normodyne) 200 mg TID PO Last administered on 02/16/19 08:17; Admin Dose 200 MG; Start 02/09/19 at 21:00 Lisinopril (Zestril) 20 mg DAILY PO Last administered on 02/16/19 08:18; Admin Dose 20 MG; Start 02/09/19 at 19:30 Hydrochlorothiazide (Hydrochlorothiazide) 12.5 mg DAILY PO Last administered on 02/16/19 08:18; Admin Dose 12.5 MG; Start 02/09/19 at 19:30 Clonidine (Catapres) 0.1 mg Q4H PRN GTB sbp > 180 Last administered on 02/16/19 04:28; Admin Dose 0.1 MG; Start 02/09/19 at 19:30 Ondansetron HCl (Zofran Inj) 4 mg Q4H PRN IV NAUSEA AND/OR VOMITING Last administered on 02/14/19 21:47; Admin Dose 4 MG; Start 02/09/19 at 22:30 Polyethylene Glycol (Miralax) 17 gm DAILY PO Last administered on 02/16/19 08:18; Admin Dose 17 GM; Start 02/09/19 at 22:30 Atorvastatin Calcium (Lipitor) 40 mg QHS PO Last administered on 02/15/19at 20:36; Admin Dose 40 MG; Start 02/10/19 at 21:00 Clopidogrel Bisulfate (plaVIX) 75 mg DAILY PO Last administered on 02/16/19 08:17; Admin Dose 75 MG; Start 02/12/19 at 09:00 Acetaminophen (Tylenol Tab) 650 mg Q4H PRN PO PAIN; Start 02/12/19 at 09:00 Oxycodone/ Acetaminophen (Percocet (5/ 325)) 1 tab Q4H PRN PO PAIN Last administered on 02/13/19at 18:04; Admin Dose 1 TAB; Start 02/12/19 at 09:00 Oxycodone/ Acetaminophen (Percocet (5/ 325)) 2 tab Q4H PRN PO PAIN; Start 02/12/19 at 09:00 Morphine Sulfate (morphine) 1 mg Q1H PRN IV PAIN LEVEL 6-10; Start 02/12/19 at 09:00 Docusate Sodium (Colace) 100 mg BID PO Last administered on 02/16/19 08:17; Admin Dose 100 MG; Start 02/12/19 at 09:00 Dexamethasone 40 mg/Sodium Chloride 60 ml @ 120 mls/hr Q24H IVPB Last administered on 02/15/19at 20:38; Admin Dose 120 MLS/HR; Start 02/15/19 at 20:30; Stop 02/17/19 at 20:59 Polyethyl Glycol/ Propylene Glycol (Systane 0.3-0.4% Eye Drops) 1 drop Q6H BOTH EYES Last administered on 02/16/19 06:11; Admin Dose 1 DROP; Start 02/15/19 at 18:00 VALENTINA ROBERTSON M.D. February 16, 2019 10:43
--- NOTE | 2019-02-16 19:11 | CONS ---
Consult Date/Type/Reason Admit Date/Time February 09, 2019 at 15:32 Initial Consult Date 02/09/19 Type of Consultation: cv Requesting Provider: KAYLEY DOUGLASS NP Date/Time of Note DATE: 02/16/19 TIME: 19:10 Subjective Interventional cardiology follow-up progress note Subjective: Discussed with the staff telemetry was reviewed. Patient remains mostly in sinus bradycardia/ NSR No syncope or presyncope no chest pain no groin pain no bleeding Objective: General: Obese female in no acute distress HEENT: NC/AT. pupils are equal. round. NECK: NO JVD. no stridor. CV: Bradycardic. systolic murmur; no gallop or rubs. PULM: no wheezing or rhonchi. GI: SOFT, NT, ND, no rebound or guarding Extremity: trace B/L LE edema. no clubbing. neuro: awake and alert, OX3. Psych: calm and pleasant rectal: deferred R femoral no bleeding or hematoma. no bruits EKG was personally reviewed showed sinus bradycardia. Nonspecific interventricular conduction delay. Poor R wave progression cannot rule out inferior infarct. Nonspecific ST-T wave abnormalities Chest x-ray shows status post coronary artery bypass graft. No acute cardia pulmonary disease Head CT done in the emergency room shows: 1. No evidence of acute intracranial pathology. 2. Chronic left thalamic lacunar infarct. 3. Mild chronic small vessel ischemic change Objective Vitals Vital Signs Date Temp Pulse Resp B/P (MAP) Pulse Ox O2 O2 Flow FiO2 Time Delivery Rate 02/16/19 50 16:02 02/16/19 98.5 20 166/67 94 15:36 (100) 02/14/19 Room Air 15:50 Intake and Output 02/15/19 02/15/19 02/16/19 1515:00 23:00 07:00 IntakeIntake Total 800 ml BalanceBalance 800 ml Results/Medications Result Diagram: 02/16/1952302/16/19523 Results 24 hrs Laboratory Tests Test 02/16/19 05:24 02/16/19 07:25 White Blood Count 14.3 #H Red Blood Count 4.18 L Hemoglobin 12.9 Hematocrit 37.1 Mean Corpuscular Volume 88.8 Mean Corpuscular Hemoglobin 30.9 Mean Corpuscular Hemoglobin Concent 34.8 Red Cell Distribution Width 12.1 Platelet Count 49 #L Mean Platelet Volume 14.1 H Immature Granulocytes % 0.500 H Neutrophils % 90.7 H Lymphocytes % 7.8 L Monocytes % 0.9 Eosinophils % 0.0 Basophils % 0.1 Nucleated Red Blood Cells % 0.0 Immature Granulocytes # 0.070 H Neutrophils # 13.0 H Lymphocytes # 1.1 Monocytes # 0.1 L Eosinophils # 0.0 Basophils # 0.0 Nucleated Red Blood Cells # 0.0 Sodium Level 136 Potassium Level 4.1 Chloride Level 102 Carbon Dioxide Level 23 Anion Gap 11 Blood Urea Nitrogen 30 H Creatinine 0.87 Est Glomerular Filtrat Rate mL/min Glucose Level 220 Calcium Level 9.4 Phosphorus Level 4.4 Magnesium Level 2.0 Lab Scanned Report BLOOD TRANSFUSION Home Meds Reported Medications Metoprolol Succinate* (Toprol XL*) 50 Mg Tab.er.24h, 1 TAB ORAL DAILY 02/09/19 Atorvastatin Calcium* (Atorvastatin Calcium*) 20 Mg Tablet, 20 MG PO QHS, #30 TAB 02/09/19 Aspirin Delayed Release (Aspirin Delayed Release) 81 Mg Tablet.dr, 1 TAB ORAL DAILY 02/09/19 Discontinued Reported Medications Docusate Sodium* (Docusate Sodium*) 100 Mg Capsule, 100 MG PO DAILY 01/12/12 Losartan Potassium* (Cozaar*) 25 Mg Tablet, 25 MG PO DAILY 01/12/12 Nitroglycerin* (Nitrostat*) 0.4 Mg Tab.subl, 0.4 MG PO PRN 01/12/12 Calcium Carbonate* (Oysco-500*) 1 Tab Tablet, 1 TAB PO BID 01/12/12 Aspirin (Aspirin) 81 Mg Tablet, 1 TAB PO DAILY 01/12/12 Medications Current Medications IV Flush (NS 3 ml) 3 ml PER PROTOCOL IV ; Start 02/09/19 at 18:00 Acetaminophen (Tylenol Tab) 650 mg Q6H PRN PO .PAIN 1-3 OR TEMP Last administered on 02/12/19at 12:32; Admin Dose 650 MG; Start 02/09/19 at 18:00 Aspirin (Halfprin) 81 mg DAILY PO Last administered on 02/16/19at 08:17; Admin Dose 81 MG; Start 02/09/19 at 19:30 Labetalol HCl (Normodyne) 200 mg TID PO Last administered on 02/16/19at 11:57; Admin Dose 200 MG; Start 02/09/19 at 21:00 Lisinopril (Zestril) 20 mg DAILY PO Last administered on 02/16/19 08:18; Admin Dose 20 MG; Start 02/09/19 at 19:30 Hydrochlorothiazide (Hydrochlorothiazide) 12.5 mg DAILY PO Last administered on 02/16/19 08:18; Admin Dose 12.5 MG; Start 02/09/19 at 19:30 Clonidine (Catapres) 0.1 mg Q4H PRN GTB sbp > 180 Last administered on 02/16/19 04:28; Admin Dose 0.1 MG; Start 02/09/19 at 19:30 Ondansetron HCl (Zofran Inj) 4 mg Q4H PRN IV NAUSEA AND/OR VOMITING Last administered on 02/14/19 21:47; Admin Dose 4 MG; Start 02/09/19 at 22:30 Polyethylene Glycol (Miralax) 17 gm DAILY PO Last administered on 02/16/19 08:18; Admin Dose 17 GM; Start 02/09/19 at 22:30 Atorvastatin Calcium (Lipitor) 40 mg QHS PO Last administered on 02/15/19 20:36; Admin Dose 40 MG; Start 02/10/19 at 21:00 Clopidogrel Bisulfate (plaVIX) 75 mg DAILY PO Last administered on 02/16/19 08:17; Admin Dose 75 MG; Start 02/12/19 at 09:00 Acetaminophen (Tylenol Tab) 650 mg Q4H PRN PO PAIN; Start 02/12/19 at 09:00 Oxycodone/ Acetaminophen (Percocet (5/ 325)) 1 tab Q4H PRN PO PAIN Last administered on 02/13/19 18:04; Admin Dose 1 TAB; Start 02/12/19 at 09:00 Oxycodone/ Acetaminophen (Percocet (5/ 325)) 2 tab Q4H PRN PO PAIN; Start 02/12/19 at 09:00 Morphine Sulfate (morphine) 1 mg Q1H PRN IV PAIN LEVEL 6-10; Start 02/12/19 at 09:00 Docusate Sodium (Colace) 100 mg BID PO Last administered on 02/16/19 08:17; Admin Dose 100 MG; Start 02/12/19 at 09:00 Dexamethasone 40 mg/Sodium Chloride 60 ml @ 120 mls/hr Q24H IVPB Last administered on 02/15/19at 20:38; Admin Dose 120 MLS/HR; Start 02/15/19 at 20:30; Stop 02/17/19 at 20:59 Polyethyl Glycol/ Propylene Glycol (Systane 0.3-0.4% Eye Drops) 1 drop Q6H BOTH EYES Last administered on 02/16/19at 17:47; Admin Dose 1 DROP; Start 02/15/19 at 18:00 Assessment/Plan Hospital Course (Demo Recall) 1. Hypertensive urgency 2. Chest pain / ACS with abnormal CT erick angio: stable post PCI LCX 3. Coronary artery disease 4. History of prior coronary artery bypass graft 5. Dyslipidemia 6. History of CVA based on the head CT 7. Morbid obesity 8. Marked sinus bradycardia 9. thrombocytopenia // ITP Recommendation: INC lisinopril Continue with labetalol Echocardiogram shows EF 50% thyroid function tests were checked which was within normal limits CONT Aspirin Plavix B/C of recent stent. CONT current dose of Lipitor to keep the LDL goal less than 70 Monitor on telemetry dc planning once ok with hematology . f./u with hem/onc rec Thank you for his referral. We will continue to follow along with you as needed over the weekend ACE FERNÁNDEZ MD [facility] ACE FERNÁNDEZ MD February 16, 2019 19:11
[2019-02-16] MEDS: ATORVASTATIN 40 MG TAB PO SCH (20:54)
[2019-02-16] MEDS: DEXAMETHASONE IVPB SCH (20:55)
[2019-02-16] MEDS: SOD CHLORIDE 0.9% IVPB SCH (20:55)
[2019-02-17] VITALS (13 sets, daily range): BP systolic 138–179; BP diastolic 64–79; PULSE 46–61; RESP 18–20
[2019-02-17] MEDS: PROPYLENE GLYCOL/PEG 5 ML OPHTH DROPS BOTH EYES SCH ×3 (06:03→17:06)
[2019-02-17] MEDS: HYDROCHLOROTHIAZIDE 12.5 MG CAP PO SCH (08:12)
[2019-02-17] MEDS: POLYETHYLENE GLYCOL 17 GM PACKET PO SCH (08:12)
[2019-02-17] MEDS: ASPIRIN (EC) 81 MG TAB PO SCH (08:12)
[2019-02-17] MEDS: DOCUSATE SODIUM 100 MG CAP PO SCH ×2 (08:12→21:23)
[2019-02-17] MEDS: CLOPIDOGREL 75 MG TAB PO SCH (08:12)
[2019-02-17] MEDS: LISINOPRIL 20 MG TAB PO SCH ×2 (08:13→21:25)
[2019-02-17] MEDS: LABETALOL 200 MG TAB PO SCH ×3 (08:13→21:00)
[2019-02-17] MEDS: predniSONE 20 MG TAB PO SCH (09:24)
--- NOTE | 2019-02-17 11:45 | CONS ---
Consult Date/Type/Reason Admit Date/Time February 09, 2019 at 15:32 Initial Consult Date 02/09/19 Type of Consultation: cv Requesting Provider: KAYLEY DOUGLASS NP Date/Time of Note DATE: 02/17/19 TIME: 11:42 Subjective Interventional cardiology follow-up progress note Subjective: Discussed with the staff telemetry was reviewed. Patient remains mostly in sinus bradycardia/ NSR No syncope or presyncope no chest pain no groin pain no bleeding Objective: General: Obese female in no acute distress HEENT: NC/AT. pupils are equal. round. NECK: NO JVD. no stridor. CV: Bradycardic. systolic murmur; no gallop or rubs. PULM: no wheezing or rhonchi. GI: SOFT, NT, ND, no rebound or guarding Extremity: trace B/L LE edema. no clubbing. neuro: awake and alert, OX3. Psych: calm and pleasant rectal: deferred R femoral no bleeding or hematoma. no bruits EKG was personally reviewed showed sinus bradycardia. Nonspecific interventricular conduction delay. Poor R wave progression cannot rule out inferior infarct. Nonspecific ST-T wave abnormalities Chest x-ray shows status post coronary artery bypass graft. No acute cardia pulmonary disease Objective Vitals Vital Signs Date Temp Pulse Resp B/P (MAP) Pulse Ox O2 O2 Flow FiO2 Time Delivery Rate 02/17/19 98.0 52 20 179/77 95 11:15 (111) 02/14/19 Room Air 15:50 Intake and Output 02/16/19 02/16/19 02/17/19 1515:00 23:00 07:00 IntakeIntake Total 1200 ml 250 ml BalanceBalance 1200 ml 250 ml Results/Medications Result Diagram: 02/17/19 0545 02/17/19 0545 Results 24 hrs Laboratory Tests Test 02/17/19 05:45 White Blood Count 13.8 H Red Blood Count 4.44 Hemoglobin 13.6 Hematocrit 39.7 Mean Corpuscular Volume 89.4 Mean Corpuscular Hemoglobin 30.6 Mean Corpuscular Hemoglobin Concent 34.3 Red Cell Distribution Width 12.6 Platelet Count 91 #L Mean Platelet Volume 13.4 H Immature Granulocytes % 0.700 H Neutrophils % Segmented Neutrophils % (Manual) 87 H Band Neutrophils % (Manual) 3 Lymphocytes % Lymphocytes % (Manual) 8 L Monocytes % Monocytes % (Manual) 2 Eosinophils % Basophils % Nucleated Red Blood Cells % 0.0 Immature Granulocytes # 0.090 H Neutrophils # Neutrophils # (Manual) 12.1 H Band Neutrophils # 0.4 Lymphocytes (Manual) 1.1 Lymphocytes # Monocytes # Monocytes # (Manual) 0.2 L Eosinophils # Basophils # Nucleated Red Blood Cells # Platelet Estimate DECREASED Giant Platelets 1 H Poikilocytosis 1+ Macrocytosis 1+ Spherocytes 1+ Ovalocytes 1+ Sodium Level 137 Potassium Level 4.5 Chloride Level 102 Carbon Dioxide Level 25 Anion Gap 10 Blood Urea Nitrogen 33 H Creatinine 0.92 Est Glomerular Filtrat Rate mL/min Glucose Level 205 Calcium Level 9.1 Total Bilirubin 0.6 Direct Bilirubin 0.00 Indirect Bilirubin 0.6 Aspartate Amino Transf (AST/SGOT) 32 Alanine Aminotransferase (ALT/SGPT) 29 Alkaline Phosphatase 69 Total Protein 7.8 Albumin 3.8 Globulin 4.00 H Albumin/Globulin Ratio 0.95 Home Meds Reported Medications Metoprolol Succinate* (Toprol XL*) 50 Mg Tab.er.24h, 1 TAB ORAL DAILY 02/09/19 Atorvastatin Calcium* (Atorvastatin Calcium*) 20 Mg Tablet, 20 MG PO QHS, #30 TAB 02/09/19 Aspirin Delayed Release (Aspirin Delayed Release) 81 Mg Tablet.dr, 1 TAB ORAL DAILY 02/09/19 Medications Current Medications IV Flush (NS 3 ml) 3 ml PER PROTOCOL IV ; Start 02/09/19 at 18:00 Acetaminophen (Tylenol Tab) 650 mg Q6H PRN PO .PAIN 1-3 OR TEMP Last administered on 02/12/19at 12:32; Admin Dose 650 MG; Start 02/09/19 at 18:00 Aspirin (Halfprin) 81 mg DAILY PO Last administered on 02/17/19at 08:12; Admin Dose 81 MG; Start 02/09/19 at 19:30 Labetalol HCl (Normodyne) 200 mg TID PO Last administered on 02/16/19at 11:57; Admin Dose 200 MG; Start 02/09/19 at 21:00 Hydrochlorothiazide (Hydrochlorothiazide) 12.5 mg DAILY PO Last administered on 02/17/19at 08:12; Admin Dose 12.5 MG; Start 02/09/19 at 19:30 Clonidine (Catapres) 0.1 mg Q4H PRN GTB sbp > 180 Last administered on 02/17/19 00:21; Admin Dose 0.1 MG; Start 02/09/19 at 19:30 Ondansetron HCl (Zofran Inj) 4 mg Q4H PRN IV NAUSEA AND/OR VOMITING Last administered on 02/14/19 21:47; Admin Dose 4 MG; Start 02/09/19 at 22:30 Polyethylene Glycol (Miralax) 17 gm DAILY PO Last administered on 02/17/19 08:12; Admin Dose 17 GM; Start 02/09/19 at 22:30 Atorvastatin Calcium (Lipitor) 40 mg QHS PO Last administered on 02/16/19 20:54; Admin Dose 40 MG; Start 02/10/19 at 21:00 Clopidogrel Bisulfate (plaVIX) 75 mg DAILY PO Last administered on 02/17/19 08:12; Admin Dose 75 MG; Start 02/12/19 at 09:00 Acetaminophen (Tylenol Tab) 650 mg Q4H PRN PO PAIN; Start 02/12/19 at 09:00 Oxycodone/ Acetaminophen (Percocet (5/ 325)) 1 tab Q4H PRN PO PAIN Last administered on 02/13/19 18:04; Admin Dose 1 TAB; Start 02/12/19 at 09:00 Oxycodone/ Acetaminophen (Percocet (5/ 325)) 2 tab Q4H PRN PO PAIN; Start 02/12/19 at 09:00 Morphine Sulfate (morphine) 1 mg Q1H PRN IV PAIN LEVEL 6-10; Start 02/12/19 at 09:00 Docusate Sodium (Colace) 100 mg BID PO Last administered on 02/17/19 08:12; Admin Dose 100 MG; Start 02/12/19 at 09:00 Polyethyl Glycol/ Propylene Glycol (Systane 0.3-0.4% Eye Drops) 1 drop Q6H BOTH EYES Last administered on 02/17/19 06:03; Admin Dose 1 DROP; Start 02/15/19 at 18:00 Lisinopril (Zestril) 20 mg BID PO Last administered on 02/17/19 08:13; Admin Dose 20 MG; Start 02/16/19 at 21:00 Prednisone (Prednisone) 60 mg DAILY PO Last administered on 5/21/19at 09:24; Admin Dose 60 MG; Start 02/17/19 at 09:00; Stop 02/19/19 at 09:00 Assessment/Plan Hospital Course (Demo Recall) 1. Hypertensive urgency 2. Chest pain / ACS with abnormal CT erick angio: stable post PCI LCX 3. Coronary artery disease 4. History of prior coronary artery bypass graft 5. Dyslipidemia 6. History of CVA based on the head CT 7. Morbid obesity 8. Marked sinus bradycardia 9. thrombocytopenia // ITP Recommendation: cont lisinopril Continue with labetalol ADD NORVASC Echocardiogram shows EF 50% thyroid function tests were checked which was within normal limits CONT Aspirin Plavix B/C of recent stent. CONT current dose of Lipitor to keep the LDL goal less than 70 Monitor on telemetry dc planning once ok with hematology . f./u with hem/onc rec F/U WITH ME IN OFFICE ON Saturday02/19/19 AT 1:45 PM Thank you for his referral. We will continue to follow along with you ACE FERNÁNDEZ MD [facility] ACE FERNÁNDEZ MD February 17, 2019 11:45
[2019-02-17] MEDS ORDERED: AMLODIPINE 5 MG TAB PO SCH (12:00)
--- NOTE | 2019-02-17 12:37 | PN ---
Date/Time of Note Date/Time of Note DATE: 02/17/19 TIME: 12:32 Assessment/Plan VTE Prophylaxis Risk score (from [facility])>0 risk: 4 SCD applied (from [facility]): Yes SCD contraindicated: low risk/ambulating Pharmacological prophylaxis: NA/contraindicated Pharm contraindication: blood coag disorder Lines/Catheters IV Catheter Type (from [facility]): Saline Lock Urinary Cath still in place: No Assessment/Plan Hospital Course A/P 1. Hypertensive urgency; improved adjust medications 2. CAD sp circumflex stent, asa /plavix 3. Chr hypertension 4. Rt vision discomfort 5. CABG status 6. Pulmonary nodule continue surveillance 7. Old left stroke continue risk factor modification 8. Dyslipidemia 9. Acute kidney injury stable observe 10. Sinus bradycardia, stable observe 11. ITP chronic, status post Decadron, discharged home on prednisone taper soon S: No events blood pressure somewhat better no dyspnea fever or bleeding O: Vital signs stable except systolic around 160/ 170 Physical exam No pallor JVD Regular Clear Benign overweight No edema Result Diagram: 02/17/1945 02/17/19 0545 Results 24hrs Laboratory Tests Test 02/17/19 05:45 White Blood Count 13.8 H Red Blood Count 4.44 Hemoglobin 13.6 Hematocrit 39.7 Mean Corpuscular Volume 89.4 Mean Corpuscular Hemoglobin 30.6 Mean Corpuscular Hemoglobin Concent 34.3 Red Cell Distribution Width 12.6 Platelet Count 91 #L Mean Platelet Volume 13.4 H Immature Granulocytes % 0.700 H Neutrophils % Segmented Neutrophils % (Manual) 87 H Band Neutrophils % (Manual) 3 Lymphocytes % Lymphocytes % (Manual) 8 L Monocytes % Monocytes % (Manual) 2 Eosinophils % Basophils % Nucleated Red Blood Cells % 0.0 Immature Granulocytes # 0.090 H Neutrophils # Neutrophils # (Manual) 12.1 H Band Neutrophils # 0.4 Lymphocytes (Manual) 1.1 Lymphocytes # Monocytes # Monocytes # (Manual) 0.2 L Eosinophils # Basophils # Nucleated Red Blood Cells # Platelet Estimate DECREASED Giant Platelets 1 H Poikilocytosis 1+ Macrocytosis 1+ Spherocytes 1+ Ovalocytes 1+ Sodium Level 137 Potassium Level 4.5 Chloride Level 102 Carbon Dioxide Level 25 Anion Gap 10 Blood Urea Nitrogen 33 H Creatinine 0.92 Est Glomerular Filtrat Rate mL/min Glucose Level 205 Calcium Level 9.1 Total Bilirubin 0.6 Direct Bilirubin 0.00 Indirect Bilirubin 0.6 Aspartate Amino Transf (AST/SGOT) 32 Alanine Aminotransferase (ALT/SGPT) 29 Alkaline Phosphatase 69 Total Protein 7.8 Albumin 3.8 Globulin 4.00 H Albumin/Globulin Ratio 0.95 Exam/Review of Systems Exam Vitals Vital Signs Date Temp Pulse Resp B/P (MAP) Pulse Ox O2 O2 Flow FiO2 Time Delivery Rate 02/17/19 98.0 52 20 179/77 95 11:15 (111) 02/14/19 Room Air 15:50 Intake and Output 02/16/19 02/16/19 02/17/19 1515:00 23:00 07:00 IntakeIntake Total 1200 ml 250 ml BalanceBalance 1200 ml 250 ml Results Results 24hrs Laboratory Tests Test 02/17/19 05:45 White Blood Count 13.8 H Red Blood Count 4.44 Hemoglobin 13.6 Hematocrit 39.7 Mean Corpuscular Volume 89.4 Mean Corpuscular Hemoglobin 30.6 Mean Corpuscular Hemoglobin Concent 34.3 Red Cell Distribution Width 12.6 Platelet Count 91 #L Mean Platelet Volume 13.4 H Immature Granulocytes % 0.700 H Neutrophils % Segmented Neutrophils % (Manual) 87 H Band Neutrophils % (Manual) 3 Lymphocytes % Lymphocytes % (Manual) 8 L Monocytes % Monocytes % (Manual) 2 Eosinophils % Basophils % Nucleated Red Blood Cells % 0.0 Immature Granulocytes # 0.090 H Neutrophils # Neutrophils # (Manual) 12.1 H Band Neutrophils # 0.4 Lymphocytes (Manual) 1.1 Lymphocytes # Monocytes # Monocytes # (Manual) 0.2 L Eosinophils # Basophils # Nucleated Red Blood Cells # Platelet Estimate DECREASED Giant Platelets 1 H Poikilocytosis 1+ Macrocytosis 1+ Spherocytes 1+ Ovalocytes 1+ Sodium Level 137 Potassium Level 4.5 Chloride Level 102 Carbon Dioxide Level 25 Anion Gap 10 Blood Urea Nitrogen 33 H Creatinine 0.92 Est Glomerular Filtrat Rate mL/min Glucose Level 205 Calcium Level 9.1 Total Bilirubin 0.6 Direct Bilirubin 0.00 Indirect Bilirubin 0.6 Aspartate Amino Transf (AST/SGOT) 32 Alanine Aminotransferase (ALT/SGPT) 29 Alkaline Phosphatase 69 Total Protein 7.8 Albumin 3.8 Globulin 4.00 H Albumin/Globulin Ratio 0.95 Medications Medication Current Medications IV Flush (NS 3 ml) 3 ml PER PROTOCOL IV ; Start 02/09/19 at 18:00 Acetaminophen (Tylenol Tab) 650 mg Q6H PRN PO .PAIN 1-3 OR TEMP Last adm inistered on 02/12/19 12:32; Admin Dose 650 MG; Start 02/09/19 at 18:00 Aspirin (Halfprin) 81 mg DAILY PO Last administered on 02/17/19 08:12; Admin Dose 81 MG; Start 02/09/19 at 19:30 Labetalol HCl (Normodyne) 200 mg TID PO Last administered on 02/16/19 11:57; Admin Dose 200 MG; Start 02/09/19 at 21:00 Hydrochlorothiazide (Hydrochlorothiazide) 12.5 mg DAILY PO Last administered on 02/17/19 08:12; Admin Dose 12.5 MG; Start 02/09/19 at 19:30 Clonidine (Catapres) 0.1 mg Q4H PRN GTB sbp > 180 Last administered on 02/17/19 00:21; Admin Dose 0.1 MG; Start 02/09/19 at 19:30 Ondansetron HCl (Zofran Inj) 4 mg Q4H PRN IV NAUSEA AND/OR VOMITING Last administered on 02/14/19 21:47; Admin Dose 4 MG; Start 02/09/19 at 22:30 Polyethylene Glycol (Miralax) 17 gm DAILY PO Last administered on 02/17/19 08:12; Admin Dose 17 GM; Start 02/09/19 at 22:30 Atorvastatin Calcium (Lipitor) 40 mg QHS PO Last administered on 02/16/19 20:54; Admin Dose 40 MG; Start 02/10/19 at 21:00 Clopidogrel Bisulfate (plaVIX) 75 mg DAILY PO Last administered on 02/17/19 08:12; Admin Dose 75 MG; Start 02/12/19 at 09:00 Acetaminophen (Tylenol Tab) 650 mg Q4H PRN PO PAIN; Start 02/12/19 at 09:00 Oxycodone/ Acetaminophen (Percocet (5/ 325)) 1 tab Q4H PRN PO PAIN Last administered on 02/13/19 18:04; Admin Dose 1 TAB; Start 02/12/19 at 09:00 Oxycodone/ Acetaminophen (Percocet (5/ 325)) 2 tab Q4H PRN PO PAIN; Start 02/12/19 at 09:00 Morphine Sulfate (morphine) 1 mg Q1H PRN IV PAIN LEVEL 6-10; Start 02/12/19 at 09:00 Docusate Sodium (Colace) 100 mg BID PO Last administered on 02/17/19 08:12; Admin Dose 100 MG; Start 02/12/19 at 09:00 Polyethyl Glycol/ Propylene Glycol (Systane 0.3-0.4% Eye Drops) 1 drop Q6H BOTH EYES Last administered on 02/17/19 12:13; Admin Dose 1 DROP; Start 02/15/19 at 18:00 Lisinopril (Zestril) 20 mg BID PO Last administered on 02/17/19 08:13; Admin Dose 20 MG; Start 02/16/19 at 21:00 Prednisone (Prednisone) 60 mg DAILY PO Last administered on 02/17/19 09:24; Admin Dose 60 MG; Start 02/17/19 at 09:00; Stop 02/19/19 at 09:00 Amlodipine Besylate (Norvasc) 5 mg DAILY PO Last administered on 02/17/19 12:13; Admin Dose 5 MG; Start 02/17/19 at 12:00 ALE ALEX MD February 17, 2019 12:37
--- NOTE | 2019-02-17 12:40 | PN ---
Date/Time of Note Date/Time of Note DATE: 02/17/19 TIME: 12:39 Assessment/Plan VTE Prophylaxis Risk score (from [employer] [facility] [employer])>0 risk: 4 SCD applied (from [employer] [facility] [employer]): Yes Pharmacological prophylaxis: NA/contraindicated Pharm contraindication: blood coag disorder Lines/Catheters IV [facility]from [facility] Saline Lock Urinary Cath still in place: No Assessment/Plan Hospital Course Late entry for 02/16/2019 A/P 1. Hypertensive urgency; improved adjust medications 2. CAD sp circumflex stent, asa /plavix 3. Chr hypertension 4. Rt vision discomfort 5. CABG status 6. Pulmonary nodule continue surveillance 7. Old left stroke continue risk factor modification 8. Dyslipidemia 9. Acute kidney injury stable observe 10. Sinus bradycardia, stable observe 11. ITP chronic S: No dyspnea blood pressure elevated O: Vss except systolic pressure elevated sinus bradycardia noted PE No pallor JVD Regular Clear Benign overweight No edema Result Diagram: 02/17/19 0545 02/17/19 0545 Results 24hrs Laboratory Tests Test 02/17/19 05:45 White Blood Count 13.8 H Red Blood Count 4.44 Hemoglobin 13.6 Hematocrit 39.7 Mean Corpuscular Volume 89.4 Mean Corpuscular Hemoglobin 30.6 Mean Corpuscular Hemoglobin Concent 34.3 Red Cell Distribution Width 12.6 Platelet Count 91 #L Mean Platelet Volume 13.4 H Immature Granulocytes % 0.700 H Neutrophils % Segmented Neutrophils % (Manual) 87 H Band Neutrophils % (Manual) 3 Lymphocytes % Lymphocytes % (Manual) 8 L Monocytes % Monocytes % (Manual) 2 Eosinophils % Basophils % Nucleated Red Blood Cells % 0.0 Immature Granulocytes # 0.090 H Neutrophils # Neutrophils # (Manual) 12.1 H Band Neutrophils # 0.4 Lymphocytes (Manual) 1.1 Lymphocytes # Monocytes # Monocytes # (Manual) 0.2 L Eosinophils # Basophils # Nucleated Red Blood Cells # Platelet Estimate DECREASED Giant Platelets 1 H Poikilocytosis 1+ Macrocytosis 1+ Spherocytes 1+ Ovalocytes 1+ Sodium Level 137 Potassium Level 4.5 Chloride Level 102 Carbon Dioxide Level 25 Anion Gap 10 Blood Urea Nitrogen 33 H Creatinine 0.92 Est Glomerular Filtrat Rate mL/min Glucose Level 205 Calcium Level 9.1 Total Bilirubin 0.6 Direct Bilirubin 0.00 Indirect Bilirubin 0.6 Aspartate Amino Transf (AST/SGOT) 32 Alanine Aminotransferase (ALT/SGPT) 29 Alkaline Phosphatase 69 Total Protein 7.8 Albumin 3.8 Globulin 4.00 H Albumin/Globulin Ratio 0.95 Exam/Review of Systems Exam Vitals Vital Signs Date Temp Pulse Resp B/P (MAP) Pulse Ox O2 O2 Flow FiO2 Time Delivery Rate 02/17/19 98.0 52 20 179/77 95 11:15 (111) 02/14/19 Room Air 15:50 Intake and Output 02/16/19 02/16/19 02/17/19 1515:00 23:00 07:00 IntakeIntake Total 1200 ml 250 ml BalanceBalance 1200 ml 250 ml Results Results 24hrs Laboratory Tests Test 02/17/19 05:45 White Blood Count 13.8 H Red Blood Count 4.44 Hemoglobin 13.6 Hematocrit 39.7 Mean Corpuscular Volume 89.4 Mean Corpuscular Hemoglobin 30.6 Mean Corpuscular Hemoglobin Concent 34.3 Red Cell Distribution Width 12.6 Platelet Count 91 #L Mean Platelet Volume 13.4 H Immature Granulocytes % 0.700 H Neutrophils % Segmented Neutrophils % (Manual) 87 H Band Neutrophils % (Manual) 3 Lymphocytes % Lymphocytes % (Manual) 8 L Monocytes % Monocytes % (Manual) 2 Eosinophils % Basophils % Nucleated Red Blood Cells % 0.0 Immature Granulocytes # 0.090 H Neutrophils # Neutrophils # (Manual) 12.1 H Band Neutrophils # 0.4 Lymphocytes (Manual) 1.1 Lymphocytes # Monocytes # Monocytes # (Manual) 0.2 L Eosinophils # Basophils # Nucleated Red Blood Cells # Platelet Estimate DECREASED Giant Platelets 1 H Poikilocytosis 1+ Macrocytosis 1+ Spherocytes 1+ Ovalocytes 1+ Sodium Level 137 Potassium Level 4.5 Chloride Level 102 Carbon Dioxide Level 25 Anion Gap 10 Blood Urea Nitrogen 33 H Creatinine 0.92 Est Glomerular Filtrat Rate mL/min Glucose Level 205 Calcium Level 9.1 Total Bilirubin 0.6 Direct Bilirubin 0.00 Indirect Bilirubin 0.6 Aspartate Amino Transf (AST/SGOT) 32 Alanine Aminotransferase (ALT/SGPT) 29 Alkaline Phosphatase 69 Total Protein 7.8 Albumin 3.8 Globulin 4.00 H Albumin/Globulin Ratio 0.95 Medications Medication Current Medications IV Flush (NS 3 ml) 3 ml PER PROTOCOL IV ; Start 02/09/19 at 18:00 Acetaminophen (Tylenol Tab) 650 mg Q6H PRN PO .PAIN 1-3 OR TEMP Last administered on 02/12/19 12:32; Admin Dose 650 MG; Start 02/09/19 at 18:00 Aspirin (Halfprin) 81 mg DAILY PO Last administered on 02/17/19 08:12; Admin Dose 81 MG; Start 02/09/19 at 19:30 Labetalol HCl (Normodyne) 200 mg TID PO Last administered on 02/16/19 11:57; Admin Dose 200 MG; Start 02/09/19 at 21:00 Hydrochlorothiazide (Hydrochlorothiazide) 12.5 mg DAILY PO Last administered on 02/17/19 08:12; Admin Dose 12.5 MG; Start 02/09/19 at 19:30 Clonidine (Catapres) 0.1 mg Q4H PRN GTB sbp > 180 Last administered on 02/17/19 00:21; Admin Dose 0.1 MG; Start 02/09/19 at 19:30 Ondansetron HCl (Zofran Inj) 4 mg Q4H PRN IV NAUSEA AND/OR VOMITING Last administered on 02/14/19 21:47; Admin Dose 4 MG; Start 02/09/19 at 22:30 Polyethylene Glycol (Miralax) 17 gm DAILY PO Last administered on 02/17/19 08:12; Admin Dose 17 GM; Start 02/09/19 at 22:30 Atorvastatin Calcium (Lipitor) 40 mg QHS PO Last administered on 02/16/19 20:54; Admin Dose 40 MG; Start 02/10/19 at 21:00 Clopidogrel Bisulfate (plaVIX) 75 mg DAILY PO Last administered on 02/17/19 08:12; Admin Dose 75 MG; Start 02/12/19 at 09:00 Acetaminophen (Tylenol Tab) 650 mg Q4H PRN PO PAIN; Start 02/12/19 at 09:00 Oxycodone/ Acetaminophen (Percocet (5/ 325)) 1 tab Q4H PRN PO PAIN Last administered on 02/13/19 18:04; Admin Dose 1 TAB; Start 02/12/19 at 09:00 Oxycodone/ Acetaminophen (Percocet (5/ 325)) 2 tab Q4H PRN PO PAIN; Start at 09:00 Morphine Sulfate (morphine) 1 mg Q1H PRN IV PAIN LEVEL 6-10; Start 02/12/19 at 09:00 Docusate Sodium (Colace) 100 mg BID PO Last administered on 02/17/19 08:12; Admin Dose 100 MG; Start 02/12/19 at 09:00 Polyethyl Glycol/ Propylene Glycol (Systane 0.3-0.4% Eye Drops) 1 drop Q6H BOTH EYES Last administered on 02/17/19 12:13; Admin Dose 1 DROP; Start 02/15/19 at 18:00 Lisinopril (Zestril) 20 mg BID PO Last administered on 02/17/19 08:13; Admin Dose 20 MG; Start 02/16/19 at 21:00 Prednisone (Prednisone) 60 mg DAILY PO Last administered on 02/17/19 09:24; Admin Dose 60 MG; Start 02/17/19 at 09:00; Stop 02/19/19 at 09:00 Amlodipine Besylate (Norvasc) 5 mg DAILY PO Last administered on 02/17/19 12:13; Admin Dose 5 MG; Start 02/17/19 at 12:00 ALE ALEX MD February 17, 2019 12:40
--- NOTE | 2019-02-17 14:00 | CONS ---
Assessment/Plan Assessment/Plan Hospital Course (Demo Recall) #Thrombocytopenia- chronic since 2011. 2/ to ITP -start prednisone taper at 60mg q day with a decrease of 10mg po each week -start bactrim SS MWF -s/p 2 days of IVIG # CAD - s/p recent PTCA on 02/12. -cont ASA and plavix #HTN - on aggressive BP control Thank you for the opportunity to participate in this patients care A total of 40 minutes of face to face time was spent speaking with the patient, of which greater than 50% was spent in counseling and coordination of care and the detailed question and answer session. Consultation Date/Type/Reason Admit Date/Time February 09, 2019 at 15:32 Initial Consult Date 02/13/19 Type of Consult hematology Reason for Consultation ITP Requesting Provider: KAYLEY DOUGLASS NP Date/Time of Note DATE: 02/17/19 TIME: 13:59 24 HR Interval Summary Free Text/Dictation pt continues on Decadron IV. platelets are > 90K Exam/Review of Systems Exam Vitals Vital Signs Date Temp Pulse Resp B/P (MAP) Pulse Ox O2 O2 Flow FiO2 Time Delivery Rate 02/17/19 46 12:00 02/17/19 98.0 20 179/77 95 11:15 (111) 02/14/19 Room Air 15:50 Intake and Output 02/16/19 02/16/19 02/17/19 1515:00 23:00 07:00 IntakeIntake Total 1200 ml 250 ml BalanceBalance 1200 ml 250 ml Constitutional: alert, oriented Psych: no complaints Head: normocephalic Eyes: nl conjunctiva ENMT: nl external ears & nose Neck: supple Respiratory: clear to auscultation Cardiovascular: regular rate and rhythm Gastrointestinal: soft Musculoskeletal: nl extremities to inspection Results Result Diagram: 02/17/19 0545 02/17/19 0545 Results 24hrs Laboratory Tests Test 02/17/19 05:45 White Blood Count 13.8 H Red Blood Count 4.44 Hemoglobin 13.6 Hematocrit 39.7 Mean Corpuscular Volume 89.4 Mean Corpuscular Hemoglobin 30.6 Mean Corpuscular Hemoglobin Concent 34.3 Red Cell Distribution Width 12.6 Platelet Count 91 #L Mean Platelet Volume 13.4 H Immature Granulocytes % 0.700 H Neutrophils % Segmented Neutrophils % (Manual) 87 H Band Neutrophils % (Manual) 3 Lymphocytes % Lymphocytes % (Manual) 8 L Monocytes % Monocytes % (Manual) 2 Eosinophils % Basophils % Nucleated Red Blood Cells % 0.0 Immature Granulocytes # 0.090 H Neutrophils # Neutrophils # (Manual) 12.1 H Band Neutrophils # 0.4 Lymphocytes (Manual) 1.1 Lymphocytes # Monocytes # Monocytes # (Manual) 0.2 L Eosinophils # Basophils # Nucleated Red Blood Cells # Platelet Estimate DECREASED Giant Platelets 1 H Poikilocytosis 1+ Macrocytosis 1+ Spherocytes 1+ Ovalocytes 1+ Sodium Level 137 Potassium Level 4.5 Chloride Level 102 Carbon Dioxide Level 25 Anion Gap 10 Blood Urea Nitrogen 33 H Creatinine 0.92 Est Glomerular Filtrat Rate mL/min Glucose Level 205 Calcium Level 9.1 Total Bilirubin 0.6 Direct Bilirubin 0.00 Indirect Bilirubin 0.6 Aspartate Amino Transf (AST/SGOT) 32 Alanine Aminotransferase (ALT/SGPT) 29 Alkaline Phosphatase 69 Total Protein 7.8 Albumin 3.8 Globulin 4.00 H Albumin/Globulin Ratio 0.95 Medications Medication Current Medications IV Flush (NS 3 ml) 3 ml PER PROTOCOL IV ; Start 02/09/19 at 18:00 Acetaminophen (Tylenol Tab) 650 mg Q6H PRN PO .PAIN 1-3 OR TEMP Last administered on 02/12/19 12:32; Admin Dose 650 MG; Start 02/09/19 at 18:00 Aspirin (Halfprin) 81 mg DAILY PO Last administered on 02/17/19 08:12; Admin Dose 81 MG; Start 02/09/19 at 19:30 Labetalol HCl (Normodyne) 200 mg TID PO Last administered on 02/16/19 11:57; Admin Dose 200 MG; Start 02/09/19 at 21:00 Hydrochlorothiazide (Hydrochlorothiazide) 12.5 mg DAILY PO Last administered on 02/17/19 08:12; Admin Dose 12.5 MG; Start 02/09/19 at 19:30 Clonidine (Catapres) 0.1 mg Q4H PRN GTB sbp > 180 Last administered on 02/17/19 00:21; Admin Dose 0.1 MG; Start 02/09/19 at 19:30 Ondansetron HCl (Zofran Inj) 4 mg Q4H PRN IV NAUSEA AND/OR VOMITING Last administered on 02/14/19 21:47; Admin Dose 4 MG; Start 02/09/19 at 22:30 Polyethylene Glycol (Miralax) 17 gm DAILY PO Last administered on 02/17/19 08:12; Admin Dose 17 GM; Start 02/09/19 at 22:30 Atorvastatin Calcium (Lipitor) 40 mg QHS PO Last administered on 02/16/19 20:54; Admin Dose 40 MG; Start 02/10/19 at 21:00 Clopidogrel Bisulfate (plaVIX) 75 mg DAILY PO Last administered on 02/17/19 08:12; Admin Dose 75 MG; Start 02/12/19 at 09:00 Acetaminophen (Tylenol Tab) 650 mg Q4H PRN PO PAIN; Start 02/12/19 at 09:00 Oxycodone/ Acetaminophen (Percocet (5/ 325)) 1 tab Q4H PRN PO PAIN Last administered on 02/13/19 18:04; Admin Dose 1 TAB; Start 02/12/19 at 09:00 Oxycodone/ Acetaminophen (Percocet (5/ 325)) 2 tab Q4H PRN PO PAIN; Start 02/12/19 at 09:00 Morphine Sulfate (morphine) 1 mg Q1H PRN IV PAIN LEVEL 6-10; Start 02/12/19 at 09:00 Docusate Sodium (Colace) 100 mg BID PO Last administered on 02/17/19 08:12; Admin Dose 100 MG; Start 02/12/19 at 09:00 Polyethyl Glycol/ Propylene Glycol (Systane 0.3-0.4% Eye Drops) 1 drop Q6H BOTH EYES Last administered on 02/17/19 12:13; Admin Dose 1 DROP; Start 02/15/19 at 18:00 Lisinopril (Zestril) 20 mg BID PO Last administered on 02/17/19 08:13; Admin Dose 20 MG; Start 02/16/19 at 21:00 Prednisone (Prednisone) 60 mg DAILY PO Last administered on 02/17/19 09:24; Admin Dose 60 MG; Start 02/17/19 at 09:00; Stop 02/19/19 at 09:00 Amlodipine Besylate (Norvasc) 5 mg DAILY PO Last administered on 02/17/19 12:13; Admin Dose 5 MG; Start 02/17/19 at 12:00 Pantoprazole (Protonix Tab) 40 mg DAILY@06 PO ; Start 02/18/19 at 06:00 VALENTINA ROBERTSON M.D. February 17, 2019 14:00
[2019-02-17] MEDS: ATORVASTATIN 40 MG TAB PO SCH (21:23)
[2019-02-18] VITALS (9 sets, daily range): BP systolic 149–175; BP diastolic 66–82; PULSE 45–58; RESP 18–19
[2019-02-18] MEDS: PROPYLENE GLYCOL/PEG 5 ML OPHTH DROPS BOTH EYES SCH ×3 (00:02→12:34)
[2019-02-18] MEDS ORDERED: PANTOPRAZOLE (EC) 40 MG TAB PO SCH (06:00)
[2019-02-18] MEDS: DOCUSATE SODIUM 100 MG CAP PO SCH (08:12)
[2019-02-18] MEDS: POLYETHYLENE GLYCOL 17 GM PACKET PO SCH (08:12)
[2019-02-18] MEDS: ASPIRIN (EC) 81 MG TAB PO SCH (08:12)
[2019-02-18] MEDS: LABETALOL 200 MG TAB PO SCH ×2 (08:13→12:35)
--- NOTE | 2019-02-18 08:13 | CONS ---
Consult Date/Type/Reason Admit Date/Time February 09, 2019 at 15:32 Initial Consult Date 02/09/19 Type of Consultation: cv Requesting Provider: KAYLEY DOUGLASS NP Date/Time of Note DATE: 02/18/19 TIME: 08:12 Subjective Interventional cardiology follow-up progress note Subjective: Discussed with the staff telemetry was reviewed. Patient remains mostly in sinus bradycardia/ NSR No syncope or presyncope no chest pain no groin pain no bleeding she wants to go home Objective: General: Obese female in no acute distress HEENT: NC/AT. pupils are equal. round. NECK: NO JVD. no stridor. CV: Bradycardic. systolic murmur; no gallop or rubs. PULM: no wheezing or rhonchi. GI: SOFT, NT, ND, no rebound or guarding Extremity: trace B/L LE edema. no clubbing. neuro: awake and alert, OX3. Psych: calm and pleasant rectal: deferred R femoral no bleeding or hematoma. no bruits EKG was personally reviewed showed sinus bradycardia. Nonspecific interventri cular conduction delay. Poor R wave progression cannot rule out inferior infarct. Nonspecific ST-T wave abnormalities Chest x-ray shows status post coronary artery bypass graft. No acute cardia p ulmonary disease Objective Vitals Vital Signs Date Temp Pulse Resp B/P (MAP) Pulse Ox O2 O2 Flow FiO2 Time Delivery Rate 02/18/19 98.3 50 19 173/77 97 07:25 (109) 02/14/19 Room Air 15:50 Intake and Output 02/17/19 02/17/19 02/18/19 1515:00 23:00 07:00 IntakeIntake Total 1250 ml BalanceBalance 1250 ml Results/Medications Result Diagram: 02/17/19 0545 02/17/19 0545 Home Meds Reported Medications Metoprolol Succinate* (Toprol XL*) 50 Mg Tab.er.24h, 1 TAB ORAL DAILY 02/09/19 Atorvastatin Calcium* (Atorvastatin Calcium*) 20 Mg Tablet, 20 MG PO QHS, #30 TAB 02/09/19 Aspirin Delayed Release (Aspirin Delayed Release) 81 Mg Tablet.dr, 1 TAB ORAL DAILY 02/09/19 Medications Current Medications IV Flush (NS 3 ml) 3 ml PER PROTOCOL IV ; Start 02/09/19 at 18:00 Acetaminophen (Tylenol Tab) 650 mg Q6H PRN PO .PAIN 1-3 OR TEMP Last administered on 02/12/19 12:32; Admin Dose 650 MG; Start 02/09/19 at 18:00 Aspirin (Halfprin) 81 mg DAILY PO Last administered on 02/17/19 08:12; Admin Dose 81 MG; Start 02/09/19 at 19:30 Labetalol HCl (Normodyne) 200 mg TID PO Last administered on 02/16/19 11:57; Admin Dose 200 MG; Start 02/09/19 at 21:00 Hydrochlorothiazide (Hydrochlorothiazide) 12.5 mg DAILY PO Last administered on 02/17/19 08:12; Admin Dose 12.5 MG; Start 02/09/19 at 19:30 Clonidine (Catapres) 0.1 mg Q4H PRN GTB sbp > 180 Last administered on 02/17/19 00:21; Admin Dose 0.1 MG; Start 02/09/19 at 19:30 Ondansetron HCl (Zofran Inj) 4 mg Q4H PRN IV NAUSEA AND/OR VOMITING Last administered on 02/14/19 21:47; Admin Dose 4 MG; Start 02/09/19 at 22:30 Polyethylene Glycol (Miralax) 17 gm DAILY PO Last administered on 02/17/19 08:12; Admin Dose 17 GM; Start 02/09/19 at 22:30 Atorvastatin Calcium (Lipitor) 40 mg QHS PO Last administered on 02/17/19 21:23; Admin Dose 40 MG; Start 02/10/19 at 21:00 Clopidogrel Bisulfate (plaVIX) 75 mg DAILY PO Last administered on 02/17/19 08:12; Admin Dose 75 MG; Start 02/12/19 at 09:00 Acetaminophen (Tylenol Tab) 650 mg Q4H PRN PO PAIN; Start 02/12/19 at 09:00 Oxycodone/ Acetaminophen (Percocet (5/ 325)) 1 tab Q4H PRN PO PAIN Last administered on 02/13/19 18:04; Admin Dose 1 TAB; Start 02/12/19 at 09:00 Oxycodone/ Acetaminophen (Percocet (5/ 325)) 2 tab Q4H PRN PO PAIN; Start 02/12/19 at 09:00 Morphine Sulfate (morphine) 1 mg Q1H PRN IV PAIN LEVEL 6-10; Start 02/12/19 at 09:00 Docusate Sodium (Colace) 100 mg BID PO Last administered on 02/17/19at 21:23; Admin Dose 100 MG; Start 02/12/19 at 09:00 Polyethyl Glycol/ Propylene Glycol (Systane 0.3-0.4% Eye Drops) 1 drop Q6H BOTH EYES Last administered on 02/18/19at 05:16; Admin Dose 1 DROP; Start 02/15/19 at 18:00 Lisinopril (Zestril) 20 mg BID PO Last administered on 02/17/19at 21:25; Admin Dose 20 MG; Start 02/16/19 at 21:00 Prednisone (Prednisone) 60 mg DAILY PO Last administered on 02/17/19at 09:24; Admin Dose 60 MG; Start 02/17/19 at 09:00; Stop 02/19/19 at 09:00 Amlodipine Besylate (Norvasc) 5 mg DAILY PO Last administered on 02/17/19at 12:13; Admin Dose 5 MG; Start 02/17/19 at 12:00 Pantoprazole (Protonix Tab) 40 mg DAILY@06 PO Last administered on 02/18/19at 05:16; Admin Dose 40 MG; Start 02/18/19 at 06:00 Assessment/Plan Hospital Course (Demo Recall) 1. Hypertensive urgency 2. Chest pain / ACS with abnormal CT erick angio: stable post PCI LCX 3. Coronary artery disease 4. History of prior coronary artery bypass graft 5. Dyslipidemia 6. History of CVA based on the head CT 7. Morbid obesity 8. Marked sinus bradycardia 9. thrombocytopenia // ITP Recommendation: cont lisinopril Continue with labetalol inc NORVASC Echocardiogram shows EF 50% thyroid function tests were checked which was within normal limits CONT Aspirin Plavix B/C of recent stent. CONT current dose of Lipitor to keep the LDL goal less than 70 Monitor on telemetry dc planning once ok with hematology . f./u with hem/onc rec F/U WITH ME IN OFFICE ON Saturday02/19/19 AT 1:45 PM Thank you for his referral. We will continue to follow along with you ACE FERNÁNDEZ MD [facility] ACE FERNÁNDEZ MD February 18, 2019 08:13
[2019-02-18] MEDS: CLOPIDOGREL 75 MG TAB PO SCH (08:14)
[2019-02-18] MEDS: predniSONE 20 MG TAB PO SCH (08:14)
[2019-02-18] MEDS: HYDROCHLOROTHIAZIDE 12.5 MG CAP PO SCH (08:14)
[2019-02-18] MEDS: LISINOPRIL 20 MG TAB PO SCH (08:14)
[2019-02-18] MEDS ORDERED: AMLODIPINE 10 MG TAB PO SCH (09:00)
--- NOTE | 2019-02-18 09:19 | CONS ---
Assessment/Plan Assessment/Plan Hospital Course (Demo Recall) #Thrombocytopenia- chronic since 2011. 2/ to ITP -last platelet count > 90K -start prednisone taper at 60mg q day with a decrease of 10mg po each week -start bactrim SS MWF -s/p 2 days of IVIG # CAD - s/p recent PTCA on 02/12. -cont ASA and plavix #HTN - on aggressive BP control Thank you for the opportunity to participate in this patients care A total of 40 minutes of face to face time was spent speaking with the patient, of which greater than 50% was spent in counseling and coordination of care and the detailed question and answer session. Consultation Date/Type/Reason Admit Date/Time February 09, 2019 at 15:32 Initial Consult Date 02/13/19 Type of Consult hematology Reason for Consultation thrombocytopenia Requesting Provider: KAYLEY DOUGLASS NP Date/Time of Note DATE: 02/18/19 TIME: 09:16 24 HR Interval Summary Free Text/Dictation no bleeding overnight . continues on ASA and plavix. had an episode of bradycardia Exam/Review of Systems Exam Vitals Vital Signs Date Temp Pulse Resp B/P (MAP) Pulse Ox O2 O2 Flow FiO2 Time Delivery Rate 02/18/19 45 08:27 02/18/19 98.3 19 173/77 97 07:25 (109) 02/14/19 Room Air 15:50 Intake and Output 02/17/19 02/17/19 02/18/19 1515:00 23:00 07:00 IntakeIntake Total 1250 ml BalanceBalance 1250 ml Constitutional: alert, oriented Psych: no complaints Head: normocephalic Eyes: nl conjunctiva ENMT: nl external ears & nose Neck: supple Respiratory: clear to auscultation Cardiovascular: regular rate and rhythm Gastrointestinal: soft Musculoskeletal: nl extremities to inspection Results Result Diagram: 02/17/19 0545 02/17/19 0545 Medications Medication Current Medications IV Flush (NS 3 ml) 3 ml PER PROTOCOL IV ; Start 02/09/19 at 18:00 Acetaminophen (Tylenol Tab) 650 mg Q6H PRN PO .PAIN 1-3 OR TEMP Last administered on 02/12/19at 12:32; Admin Dose 650 MG; Start 02/09/19 at 18:00 Aspirin (Halfprin) 81 mg DAILY PO Last administered on 02/18/19 08:12; Admin Dose 81 MG; Start 02/09/19 at 19:30 Labetalol HCl (Normodyne) 200 mg TID PO Last administered on 02/16/19 11:57; Admin Dose 200 MG; Start 02/09/19 at 21:00 Hydrochlorothiazide (Hydrochlorothiazide) 12.5 mg DAILY PO Last administered on 02/18/19 08:14; Admin Dose 12.5 MG; Start 02/09/19 at 19:30 Clonidine (Catapres) 0.1 mg Q4H PRN GTB sbp > 180 Last administered on 02/17/19 00:21; Admin Dose 0.1 MG; Start 02/09/19 at 19:30 Ondansetron HCl (Zofran Inj) 4 mg Q4H PRN IV NAUSEA AND/OR VOMITING Last administered on 02/14/19 21:47; Admin Dose 4 MG; Start 02/09/19 at 22:30 Polyethylene Glycol (Miralax) 17 gm DAILY PO Last administered on 02/18/19 08:12; Admin Dose 17 GM; Start 02/09/19 at 22:30 Atorvastatin Calcium (Lipitor) 40 mg QHS PO Last administered on 02/17/19 21:23; Admin Dose 40 MG; Start 02/10/19 at 21:00 Clopidogrel Bisulfate (plaVIX) 75 mg DAILY PO Last administered on 02/18/19 08:14; Admin Dose 75 MG; Start 02/12/19 at 09:00 Acetaminophen (Tylenol Tab) 650 mg Q4H PRN PO PAIN; Start 02/12/19 at 09:00 Oxycodone/ Acetaminophen (Percocet (5/ 325)) 1 tab Q4H PRN PO PAIN Last administered on 02/13/19 18:04; Admin Dose 1 TAB; Start 02/12/19 at 09:00 Oxycodone/ Acetaminophen (Percocet (5/ 325)) 2 tab Q4H PRN PO PAIN; Start 02/12/19 at 09:00 Morphine Sulfate (morphine) 1 mg Q1H PRN IV PAIN LEVEL 6-10; Start 02/12/19 at 09:00 Docusate Sodium (Colace) 100 mg BID PO Last administered on 02/18/19 08:12; Admin Dose 100 MG; Start 02/12/19 at 09:00 Polyethyl Glycol/ Propylene Glycol (Systane 0.3-0.4% Eye Drops) 1 drop Q6H BOTH EYES Last administered on 02/18/19at 05:16; Admin Dose 1 DROP; Start 02/15/19 at 18:00 Lisinopril (Zestril) 20 mg BID PO Last administered on 02/18/19at 08:14; Admin Dose 20 MG; Start 02/16/19 at 21:00 Prednisone (Prednisone) 60 mg DAILY PO Last administered on 02/18/19at 08:14; Admin Dose 60 MG; Start 02/17/19 at 09:00; Stop 02/19/19 at 09:00 Pantoprazole (Protonix Tab) 40 mg DAILY@06 PO Last administered on 02/18/19at 05 :16; Admin Dose 40 MG; Start 02/18/19 at 06:00 Amlodipine Besylate (Norvasc) 10 mg DAILY PO ; Start 02/18/19 at 09:00 VALENTINA ROBERTSON M.D. February 18, 2019 09:19
--- NOTE | 2019-02-18 10:24 | PDOCDIS ---
Discharge Instructions CONDITION [id number] Patient Condition: [id number] Stable HOME CARE INSTRUCTIONS: [id number] Diet Instructions: [id number] Low Fat /Cholesterol (low salt) ACTIVITY: [id number] Activity Restrictions: [id number] Slowly Increase Activity Do not Drive FOLLOW UP/APPOINTMENTS Follow-up Plan Kush Lares MD Specialty: Interventional Cardiology Office Address [id number] [address] Office -1wn 02/19/19 @ 1:45pm PCP 1wk Dr Bull 1wk ALE ALEX MD February 18, 2019 10:24
[2019-02-18] MEDS ORDERED: PRED20TA PO (10:31)
[2019-02-18] MEDS ORDERED: LISI-471 PO (10:31)
[2019-02-18] MEDS ORDERED: CLOP75TA28 PO (10:31)
[2019-02-18] MEDS ORDERED: POLY17PO6 PO (10:31)
[2019-02-18] MEDS ORDERED: PANT40TA4 PO (10:31)
[2019-02-18] MEDS ORDERED: AMLO-147 PO (10:31)
--- NOTE | 2019-02-18 12:38 | DS ---
Date/Time of Note Date/Time of Note DATE: 02/18/19 TIME: 12:28 Discharge Summary Admission/Discharge Info Admit Date/Time February 09, 2019 at 15:32 Discharge Date/Time Patient Condition: Stable Procedures Chest x-ray Cardiomegaly CT brain IMPRESSION: 1. No evidence of acute intracranial pathology. 2. Chronic left thalamic lacunar infarct. 3. Mild chronic small vessel ischemic changes. CT cardiac CT IMPRESSION: Coronary artery bypass grafts: BANERJEE: To distal LAD is patent throughout. G1: Clips are seen extending towards the OM territory suggesting a completely occluded graft. G2: To PDA is patent throughout. [place] coronary arteries: RCA: Occluded proximally with reconstitution at the level of the acute marginal branch. Severe multifocal stenoses in the midsegment of the vessel. Mild - moderate irregularities of the distal segment. PLB: Mild - moderate irregularities of the small caliber vessel. PDA: Normal. LM: Mild irregularities. LAD: Proximal and mid segments are severely diseased throughout. Distal segment is reconstituted and normal. LCX: Predominately noncalcified plaque in the proximal segment produces up to 75% stenosis. Additional severe stenoses in the mid and distal segments. CAT scan abdomen pelvis IMPRESSION: Trace bilateral pleural effusions, potentially on a cardiogenic basis. Mild biliary ductal dilatation, which may reflect postcholecystectomy state. This could be correlated with LFTs of priors, to guide further imaging follow-up such as MRCP. Otherwise, no acute intra-abdominal abnormality or evidence of hepatosplenomegaly. Indeterminate noncalcified lower lobe lung nodule bilaterally measuring up to 6 mm on the left. Guidelines for Management of Small Pulmonary Nodules Detected on CT Scans: A statement from the Fleischner [employer] Multiple Solid Nodules: Use most susp nod to guide mgmt. F/u intervals may vary according to size/risk <6mm(<100mm3): Low risk: No f/u. High risk: Optional CT at 12 months. 6-8mm(100-250mm3): Low risk: CT at 3-[address] at 18-24 mos. High risk: CT at 3-[address] at 18-24 mos. Reference: Radiology 2017 Special Report 2D echo Conclusions: Lower limits of normal systolic function. Normal left ventricular cavity size. Mild concentric left ventricular hypertrophy. Ejection fraction is visually estimated at 50 %. Tissue Doppler/Mitral Doppler indices are consistent with pseudonormalization with mildly elevated left atrial pressure (Stage II diastolic dysfunction). No significant aortic stenosis or insufficiency. Aortic cusps appear mildly calcified. Normal appearance of the tricuspid valve. Estimated peak PA systolic pressure 27 mmHg. There is trace tricuspid regurgitation. Normal appearance and function of the mitral valve with trace physiologic regurgitation. Electronically Signed By: Kush Lares Hx of Present Illness 78-year-old female admitted with shortness of breath Hospital Course Hospitalist coverage/hospital course Found to have acute kidney injury hypertensive urgency. Required aggressive therapy for blood pressure. Seen by cardiology and nephrology. Next there was concern for acute coronary syndrome patient underwent cardiac cath with stent to circumflex. Troponins negative. She is tolerating aspirin Plavix. Stable and fit for discharge on medical therapy. Blood pressures for hypertension adjusted. Patient seen for severe thrombocytopenia. Going back to the records this is likely subacute chronic. Patient was seen by hematology. 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 Patient received IV Decadron. Presently going home today on p rednisone. 60 mg daily to be tapered by 10 mg every week and as an outpatient. A/P 1. Hypertensive urgency; improved adjust medications. Discharge. 2. CAD sp circumflex stent, asa /plavix 3. Chr hypertension 4. Rt vision discomfort 5. CABG status 6. Pulmonary nodule continue surveillance 7. Old left stroke continue risk factor modification 8. Dyslipidemia 9. Acute kidney injury stable observe 10. Sinus bradycardia, stable observe 11. ITP chronic, stable follow-up with hematology. Home Meds Active Scripts Prednisone* (Prednisone*) 20 Mg Tab, 60 MG PO DAILY for 10 Days, #40 TAB 1 Refill 60mg daily for 1week, then taper by 10mg every week [50/40/30/20/10]. Prov:ALE ALEX MD 02/18/19 Polyethylene Glycol* (Miralax*) 17 Gm Powd.pack, 17 GM PO DAILY for 7 Days, #10 2 Refills Prov:ALE ALEX MD 02/18/19 Pantoprazole* (Pantoprazole*) 40 Mg Tablet., 40 MG PO DAILY@06 for 30 Days, #30 no otc prilosec, as she is taking plavix. Prov:ALE ALEX MD 02/18/19 Lisinopril* (Lisinopril*) 20 Mg Tablet, 20 MG PO BID for 10 Days, #30 TAB Prov:ALE ALEX MD 02/18/19 Amlodipine Besylate* (Amlodipine Besylate*) 10 Mg Tablet, 10 MG PO DAILY for 14 Days, TAB 1 Refill Prov:ALE ALEX MD 02/18/19 Clopidogrel Bisulfate (Clopidogrel) 75 Mg Tablet, 75 MG PO DAILY for 30 Days, #30 TAB 2 Refills Prov:ALE ALEX MD 02/18/19 Aspirin Delayed Release (Aspirin Delayed Release) 81 Mg Tablet.dr, 81 MG PO DAILY, #30 TAB Prov:KAYLEY DOUGLASS NP 02/13/19 Hydrochlorothiazide (Hydrochlorothiazide) 12.5 Mg Capsule, 12.5 MG PO DAILY, #30 CAP Prov:KAYLEY DOUGLASS NP 02/13/19 Lisinopril* (Lisinopril*) 20 Mg Tablet, 20 MG PO DAILY, #30 TAB Prov:KAYLEY DOUGLASS NP 02/13/19 Labetalol Hcl* (Labetalol Hcl*) 200 Mg Tablet, 200 MG PO TID, #90 TAB Prov:KAYLEY DOUGLASS NP 02/13/19 Atorvastatin* (Atorvastatin*) 40 Mg Tablet, 40 MG PO QHS, #30 TAB Prov:KAYLEY DOUGLASS NP 02/13/19 Clopidogrel Bisulfate (Clopidogrel) 75 Mg Tablet, 75 MG PO DAILY, #30 TAB Prov:KAYLEY DOUGLASS NP 02/13/19 Reported Medications Aspirin Delayed Release (Aspirin Delayed Release) 81 Mg Tablet.dr, 1 TAB ORAL DAILY 02/09/19 Discontinued Reported Medications Metoprolol Succinate* (Toprol XL*) 50 Mg Tab.er.24h, 1 TAB ORAL DAILY 02/09/19 Atorvastatin Calcium* (Atorvastatin Calcium*) 20 Mg Tablet, 20 MG PO QHS, #30 TAB 02/09/19 Follow-up Plan Kush Lares MD Specialty: Interventional Cardiology Office Address [address] [place] [id number] Office -1wg 02/19/19 @ 1:45pm PCP 1wk Dr Bull 1wk Primary Care Provider Care Physician No Primary Time spent on discharge: > 30 minutes ALE ALEX MD February 18, 2019 12:38
== END 2019-02-18 16:20 | disposition home or self-care (01) | DRG 247 ==
LOC: E/R 10:41 → TEL 15:32
PROVIDERS: ADMIT Internal Medicine; ATTEND Internal Medicine
PROC: B211YZZ Fluoroscopy of Multiple Coronary Arteries using Other Contrast (ICD-10-PCS; 2019-02-12)
PROC: B213YZZ Fluoroscopy of Multiple Coronary Artery Bypass Grafts using Other Contrast (ICD-10-PCS; 2019-02-12)
PROC: 027034Z Dilation of Coronary Artery, One Artery with Drug-eluting Intraluminal Device, Percutaneous Approach (ICD-10-PCS; principal; 2019-02-12 07:30)
PROC: 4A023N7 Measurement of Cardiac Sampling and Pressure, Left Heart, Percutaneous Approach (ICD-10-PCS; 2019-02-12 07:30)
PROC: 30233R1 Transfusion of Nonautologous Platelets into Peripheral Vein, Percutaneous Approach (ICD-10-PCS; 2019-02-13)
DX: I25.710 Atherosclerosis of autologous vein coronary artery bypass graft(s) with unstable angina pectoris (principal); N17.9 Acute kidney failure, unspecified; I16.0 Hypertensive urgency; I10 Essential (primary) hypertension; E78.5 Hyperlipidemia, unspecified; D69.6 Thrombocytopenia, unspecified; R00.1 Bradycardia, unspecified; E66.01 Morbid (severe) obesity due to excess calories; R91.8 Other nonspecific abnormal finding of lung field; H54.61 Unqualified visual loss, right eye, normal vision left eye; Z68.33 Body mass index [BMI] 33.0-33.9, adult; Z86.73 Personal history of transient ischemic attack (TIA), and cerebral infarction without residual deficits; Z95.1 Presence of aortocoronary bypass graft
CPT/HCPCS: 36415; 36430; 70450; 71045; 74160; 75574; 80048; 80053; 80061; 82550; 82553; 83036; 83735; 83880; 84100; 84439; 84443; 84484; 85025; 85610; 85730; 86644; 86850; 86900; 86901; 86945; 93005; 93306; 93459; C1725; C1760; C1874; C1887; C1894; C9600; J0583; J1100; J1459; J1561; J1644; J2060; J2250; J2270; J2405; J3010; J7030; J7040; J7512; P9035; Q9967